=== PATIENT | female | born 1955 | race Caucasian/White ===

== ENCOUNTER 2020-11-03 06:30 | Outpatient (REF) | payer BC, SELFPAY ==
[2020-11-03 11:38] LABS: Alanine Aminotransferase 45 U/L (0-31); Albumin Level 4.4 g/dL (3.5-5.0); Alkaline Phosphatase 109 U/L (39-117); Anion Gap 20 (12-20); Aspartate Amino Transferase 33 U/L (5-31); Bilirubin Total 0.6 mg/dL (0.0-1.0); Blood Urea Nitrogen 13 mg/dL (9-16); Calcium 9.3 mg/dL (8.4-10.2); Carbon Dioxide 21 mmol/L (22-29); Chloride 108 mmol/L (96-108); Estimated Glomerular Filt Rate > 60; Glucose Fasting 100 mg/dL (60-99); Sodium 145 mmol/L (135-145); Total Protein 6.9 g/dL (6.5-8.0)
[2020-11-03 11:46] LABS: Vitamin D 25-OH Total 33.6 ng/mL (>30)
[2020-11-10 09:48] LABS: N-Telopeptide 46 (see note); NTXCreaRU 168 mg/dL (20-275)
== END 2020-11-03 06:31 | disposition home or self-care (01) ==
LOC: HO.HMGCLDS 06:30
PROVIDERS: PCP Internal Medicine; Visit Provider Internal Medicine Endocrinology, Diabetes & Metabolism
DX: M81.0 Age-related osteoporosis without current pathological fracture (principal)
CPT/HCPCS: 36415; 80053; 82306; 82523

== ENCOUNTER → 2020-11-14 07:40 | Outpatient (BNVA) | payer BC, SELFPAY | PROVIDERS: PCP Internal Medicine; Visit Provider Internal Medicine Endocrinology, Diabetes & Metabolism ==

== ENCOUNTER → 2020-12-02 08:10 | Outpatient (BNVA) | payer BC, SELFPAY | PROVIDERS: PCP Internal Medicine; Visit Provider Internal Medicine Endocrinology, Diabetes & Metabolism | DX: M81.0 Age-related osteoporosis without current pathological fracture (principal) | CPT/HCPCS: 96402; J0897 ==

== ENCOUNTER 2020-12-15 06:30 | Outpatient (REF) | payer BC, SELFPAY ==
[2020-12-15 11:35] LABS: Albumin Level 4.6 g/dL (3.5-5.0); Calcium 8.9 mg/dL (8.4-10.2)
[2020-12-15 11:40] LABS: Alanine Aminotransferase 33 U/L (0-31); Albumin Level 4.6 g/dL (3.5-5.0); Alkaline Phosphatase 115 U/L (39-117); Aspartate Amino Transferase 22 U/L (5-31); Bilirubin Direct 0.3 mg/dL (0.0-0.5); Bilirubin Total 0.7 mg/dL (0.0-1.0); Cholesterol 135 mg/dL; HDL Cholesterol 34 mg/dL; LDL Cholesterol Calculated 74 mg/dl; Triglycerides 137 mg/dL
[2020-12-15 13:35] LABS: Reflex LDLD? No
== END 2020-12-15 06:31 | disposition home or self-care (01) ==
LOC: HO.HMGCLDS 06:30
PROVIDERS: PCP Internal Medicine; Visit Provider Internal Medicine Endocrinology, Diabetes & Metabolism
DX: M81.0 Age-related osteoporosis without current pathological fracture (principal); E78.6 Lipoprotein deficiency; E78.00 Pure hypercholesterolemia, unspecified
CPT/HCPCS: 36415; 80061; 80076; 82040; 82310

== ENCOUNTER 2021-01-16 07:56 | Outpatient (REF) | payer BC, SELFPAY ==
--- NOTE | ~2021-01-16 | MM_ITS ---
EXA EXAMINATION: BONE DENSITOMETRY CLINICAL INDICATION: Age-related osteoporosis without current pathological fracture. COMPARISON: Previous BD dated 01/30/2019, left hip, 01/28/2017, spine, and baseline BD dated 11/15/2013. TECHNIQUE: Using a [employer] DXA System (software version: 13.1) manufactured by [employer], dual-energy x-ray absorptiometry was performed of the lumbar spine and left hip. The images are of good technical quality. Summary results are attached. FINDINGS: AP SPINE L1-L4: Current: BMD 0.888 g/cm2, Z-score -0.9, T-score -2.4, osteopenia, 10.2% increase from previous, 0.7% increase from baseline (<5% change is not significant). Prior: BMD 0.806 g/cm2. Baseline: BMD 0.882 g/cm2. LEFT FEMUR, NECK: Current: BMD 0.688 g/cm2, Z-score -1.1, T-score -2.5, osteoporosis. Prior: BMD 0.707 g/cm2. Baseline: BMD 0.688 g/cm2. LEFT FEMUR, TOTAL: Current: BMD 0.751 g/cm2, Z-score -0.9, T-score -2.0, osteopenia, 4.7% decrease from previous, 1.3% increase from baseline (<5% change is not significant). Prior: BMD 0.788 g/cm2. Baseline: BMD 0.741 g/cm2. IDENTIFIED RISK FACTORS: Early menopause, secondary osteoporosis, tobacco use (current smoker), osteoporosis. HISTORY OF FRACTURE: None listed. MEDICATIONS: Calcium supplements or multivitamin, vitamin D, Prolia. MM/XR DEXA axial skeleton IMPRESSION: 1. DIAGNOSIS: Osteoporosis based on the lowest T-score value of -2.5 in the femoral neck applying World Health Organization criteria. 2. 10-YEAR FRACTURE RISK PREDICTION, FRAX: Major osteoporotic fracture (clinical spine, forearm, hip or shoulder) 14.1%. Hip fracture 4.6%. 3. Treatment Recommendations: NOF guidelines recommend consideration for treatment in postmenopausal women and men age 50 and older presenting with the following: -A hip or vertebral (clinical or morphometric) fracture. -T-score less than or equal to -2.5 at the femoral neck or spine after appropriate evaluation to exclude secondary causes. -Low bone mass at the hip or spine and a 10-year fracture probability by FRAX of greater than or equal to 3% for hip fracture or greater than or equal to 20% for major osteoporotic fracture based on the [place] adapted WHO algorithm. 4. Other Recommendations: All treatment decisions require clinical judgment and consideration of individual patient factors, including patient preferences, comorbidities, previous drug use, risk factors not captured in the FRAX model (e.g. frailty, falls, vitamin D deficiency, increased bone turnover, interval significant decline in bone density) and possible under or overestimation of fracture risk by FRAX. Additional medical evaluation for secondary cause of low bone mineral density may be appropriate. FUTURE SCAN RECOMMENDATION: People with diagnosed cases of osteoporosis or at high risk for fracture should have regular bone mineral density tests. For patients eligible for Medicare, routine testing is allowed once every 2 years. The testing frequency can be increased to one year for patients who have rapidly progressing disease, those who are receiving or discontinuing medical therapy to restore bone mass, or have additional risk factors. MINATION:
== END 2021-01-16 07:57 | disposition home or self-care (01) ==
LOC: HO.MAMMO 07:56
PROVIDERS: Visit Provider Internal Medicine Endocrinology, Diabetes & Metabolism
DX: Z13.820 Encounter for screening for osteoporosis (principal); M81.0 Age-related osteoporosis without current pathological fracture; F17.200 Nicotine dependence, unspecified, uncomplicated; Z79.899 Other long term (current) drug therapy
CPT/HCPCS: 77080

== ENCOUNTER 2021-04-17 08:52 | Outpatient (REF) | payer BC, SELFPAY ==
--- NOTE | ~2021-04-17 | US_ITS ---
EXAMINATION: US EXTRACRANIAL CAROTID DUPLEX, BILATERAL CLINICAL INFORMATION: Coronary artery disease. Risk factors include tobacco use and hyperlipidemia. COMPARISON: Previous carotid ultrasound February 2018 and February 2019 TECHNIQUE: Real-time ultrasound and Doppler techniques (integrating B-mode 2-D vascular images, Doppler spectral analysis and color-flow Doppler imaging) were utilized to interrogate the extracranial carotid arteries, the vertebral arteries and proximal subclavian arteries bilaterally. The degree of stenosis is determined by criteria similar to NASCET. FINDINGS: Right Side: 1. There is mild atherosclerotic plaque seen in the bifurcation/proximal ICA region. 2. The common carotid artery PSV proximally is 119 cm/s and distally 114 cm/s. 3. The proximal internal carotid artery velocities are 83 cm/s systolic and 21 cm/s diastolic. 4. The proximal external carotid artery PSV is 126 cm/s. 5. The vertebral artery shows antegrade flow. 6. The subclavian artery waveforms are normal. Left Side: 1. There is mild atherosclerotic plaque seen in the bifurcation/proximal ICA region. 2. The common carotid artery PSV proximally is 106 cm/s and distally 99 cm/s. 3. The proximal internal carotid artery velocities are 70 cm/s systolic and 25 cm/s diastolic. 4. The proximal external carotid artery PSV is 114 cm/s. 5. The vertebral artery shows antegrade flow. 6. The subclavian artery waveforms are normal. US/US carotid duplex BI IMPRESSION: 1. RIGHT: Mild atherosclerotic plaque. 0-49% right ICA stenosis. 2. LEFT: Mild atherosclerotic plaque. 0-49% left ICA stenosis. 3. There is no change in the category severity of disease when compared to the previous study dated February 2019.
== END 2021-04-17 08:53 | disposition home or self-care (01) ==
LOC: HO.HMGCX 08:52
PROVIDERS: PCP Internal Medicine; Visit Provider Internal Medicine
DX: D72.820 Lymphocytosis (symptomatic) (principal); I77.9 Disorder of arteries and arterioles, unspecified
CPT/HCPCS: 93880

== ENCOUNTER 2021-04-27 06:16 | Outpatient (REF) | payer BC, SELFPAY ==
[2021-04-27 11:27] LABS: MANUAL DIFF FLAG NO
[2021-04-27 11:32] LABS: Glucose Urine UA NEG (NEG); Leukocyte Esterase Urine NEG (NEG); Nitrite Urine NEG (NEG); Specific Gravity - Urine <= 1.005 (1.005-1.025); Urine Blood 2+ (NEG); Urine Ketones NEG (NEG); Urine Protein NEG (NEG-TRACE)
[2021-04-27 11:36] LABS: Appearance Urine CLEAR; Color Urine STRAW
[2021-04-27 11:44] LABS: Basophils Percent Auto 0.4 % (0-2); Eosinophils Absolute Auto 0.1 X10*3/uL (0.0-0.4); Eosinophils Percent Auto 1.4 % (0-4); Hematocrit 40.9 % (37-47); Hemoglobin 12.8 g/dl (12.0-16.0); Imm Gran Abs Auto 0.03 X10*3/uL (0.00-0.03); Imm Gran Pct Auto 0.3 % (0.0-0.4); Lymphocytes Absolute Auto 4.5 X10*3/uL (1.2-4.9); Lymphocytes Percent Auto 47.3 % (20-40); Mean Corpuscular HGB Conc 31.3 g/dl (31.0-35.0); Mean Corpuscular Hemoglobin 31.4 pg (27.0-33.0); Mean Corpuscular Volume 100.2 fL (80-98); Mean Platelet Volume 12.7 fL (9.4-12.3); Monocytes Absolute Auto 0.7 X10*3/uL (0.1-1.2); Monocytes Percent Auto 7.1 % (2-11); Neutrophils Absolute Auto 4.2 X10*3/uL (2.0-8.3); Neutrophils Percent Auto 43.5 % (45-73); Platelet Count 231 X10*3/uL (160-400); Red Blood Count 4.08 X10*6/uL (4.20-5.50); Red Cell Distribution Width 13.7 % (11.0-16.0); White Blood Count 9.6 X10*3/uL (4.8-10.8)
[2021-04-27 11:54] LABS: Alanine Aminotransferase 38 U/L (0-31); Albumin Level 4.4 g/dL (3.5-5.0); Alkaline Phosphatase 98 U/L (39-117); Anion Gap 14 (12-20); Aspartate Amino Transferase 28 U/L (5-31); Bilirubin Total 0.7 mg/dL (0.0-1.0); Blood Urea Nitrogen 14 mg/dL (9-16); Calcium 9.3 mg/dL (8.4-10.2); Carbon Dioxide 25 mmol/L (22-29); Chloride 107 mmol/L (96-108); Cholesterol 132 mg/dL; Estimated Glomerular Filt Rate > 60; Glucose Fasting 107 mg/dL (60-99); HDL Cholesterol 31 mg/dL; LDL Cholesterol Calculated 73 mg/dl; Potassium 4.7 mmol/L (3.3-5.1); Sodium 141 mmol/L (135-145); Total Protein 6.9 g/dL (6.5-8.0); Triglycerides 144 mg/dL
[2021-04-27 11:56] LABS: Bacteria Urine 2+ /LPF; Squamous Epithelial Cell Urine 2+ /LPF
[2021-04-27 12:15] LABS: Vitamin D 25-OH Total 33.2 ng/mL (>30)
[2021-04-27 12:22] LABS: Reflex LDLD? No
[2021-05-01 16:37] LABS: N-Telopeptide 15 (see note); NTXCreaRU 48 mg/dL (20-275)
== END 2021-04-27 06:17 | disposition home or self-care (01) ==
LOC: HO.HMGCLDS 06:16
PROVIDERS: Internal Medicine Endocrinology, Diabetes & Metabolism; PCP Internal Medicine; Visit Provider Internal Medicine
DX: E55.9 Vitamin D deficiency, unspecified (principal); M81.0 Age-related osteoporosis without current pathological fracture; E78.00 Pure hypercholesterolemia, unspecified; D72.820 Lymphocytosis (symptomatic)
CPT/HCPCS: 36415; 80053; 80061; 81001; 82306; 82523; 85025

== ENCOUNTER 2021-06-04 07:43 | Outpatient (REF) | payer BC, SELFPAY ==
--- NOTE | ~2021-06-04 | MM_ITS ---
EXAMINATION: MM SCREENING DIGITAL BREAST TOMOSYNTHESIS, BILATERAL CLINICAL INFORMATION: Screening. Asymptomatic. The lifetime risk of breast cancer based on the Tyrer-Cuzick Model is 4%. COMPARISON: Mammography: May 29, 2020 and studies dating back to October 17, 2012 TECHNIQUE: Digital breast tomosynthesis is performed in both the craniocaudal and mediolateral oblique views along with computer-aided detection (CAD). Synthesized 2D images are generated from the tomosynthesis. FINDINGS: The breasts are heterogeneously dense, which may obscure small masses (ACR BI-RADS breast composition Category c). There are no significant masses, abnormal calcifications, or other abnormalities. MM/MM tomosynthesis screening BI IMPRESSION: There are no significant changes from prior study. ASSESSMENT: BI-RADS 1: Negative RECOMMENDATION: Routine annual mammography screening. This patient's information was entered into a reminder system with a target due date for their next mammogram.
== END 2021-06-04 07:44 | disposition home or self-care (01) ==
LOC: HO.MAMMO 07:43
PROVIDERS: Visit Provider Internal Medicine
DX: Z12.31 Encounter for screening mammogram for malignant neoplasm of breast (principal); M81.0 Age-related osteoporosis without current pathological fracture
CPT/HCPCS: 77063; 77067; 96372; J0897

== ENCOUNTER 2021-06-05 14:43 | Outpatient (REF) | payer BC, SELFPAY ==
--- NOTE | ~2021-06-05 | CT_ITS ---
EXAMINATION: CT CHEST SCREENING CLINICAL INFORMATION: Former smoker. 30 pack-year history. COMPARISON: Quit smoking less than 1 year ago. TECHNIQUE: Multidetector volumetric CT imaging of the chest is performed without contrast using low dose technique. Additional 2D coronal and sagittal reformatted images and axial 3D maximum intensity projection (MIP) images are generated on the CT workstation. This CT examination was performed using dose optimization techniques as appropriate, variously including the following: *Automated exposure control *Adjustment of mA and/or kV according to patient size (this includes techniques or standardized protocols for targeted exams where dose is matched to indication/reason for exam; i.e. extremities or head) *Use of iterative reconstruction technique DLP: 42 mGy-cm FINDINGS: LUNGS: There is evidence of mild emphysema. There is a 2 mm peripheral or subpleural right lower lobe nodule adjacent to the mediastinum, axial image 334 series 5. The lungs are otherwise clear. No endobronchial or endotracheal lesion is seen. MEDIASTINUM: The mediastinum is normal. PLEURA: There is no pleural effusion. No pleural mass or thickening. AXILLA: There are small bilateral axillary lymph nodes. No enlarged axillary lymph nodes or chest wall mass. UPPER ABDOMEN: There is diverticulosis of the colon. OSSEOUS STRUCTURES: There are degenerative changes of the spine. CT/CT lung screening IMPRESSION: Mild emphysema. Small right lower lobe pulmonary nodule. ASSESSMENT: Lung-RADS category 2: Benign. RECOMMENDATION: Annual low-dose chest CT follow-up recommended.
== END 2021-06-05 14:44 | disposition home or self-care (01) ==
LOC: HO.CT 14:43
PROVIDERS: PCP Internal Medicine; Visit Provider Physician Assistant Medical
DX: Z12.2 Encounter for screening for malignant neoplasm of respiratory organs (principal); F17.210 Nicotine dependence, cigarettes, uncomplicated
CPT/HCPCS: 71271

== ENCOUNTER 2021-06-18 06:41 | Outpatient (REF) | payer BC, SELFPAY ==
[2021-06-18 11:48] LABS: Albumin Level 4.5 g/dL (3.5-5.0); Calcium 9.1 mg/dL (8.4-10.2)
[2021-06-21 06:46] LABS: PTHI 69 pg/mL (14-64)
== END 2021-06-18 06:42 | disposition home or self-care (01) ==
LOC: HO.HMGCLDS 06:41
PROVIDERS: PCP Internal Medicine; Visit Provider Internal Medicine
DX: M81.0 Age-related osteoporosis without current pathological fracture (principal)
CPT/HCPCS: 36415; 82040; 82310; 83970

== ENCOUNTER 2021-10-29 06:18 | Outpatient (REF) | payer BC, SELFPAY ==
[2021-10-29 11:49] LABS: Alanine Aminotransferase 30 U/L (0-31); Albumin Level 4.3 g/dL (3.5-5.0); Alkaline Phosphatase 79 U/L (39-117); Aspartate Amino Transferase 21 U/L (5-31); Bilirubin Direct 0.4 mg/dL (0.0-0.5); Bilirubin Total 1.1 mg/dL (0.0-1.0); Cholesterol 139 mg/dL; HDL Cholesterol 32 mg/dL; LDL Cholesterol Calculated 75 mg/dl; Total Protein 6.9 g/dL (6.5-8.0); Triglycerides 161 mg/dL
== END 2021-10-29 06:19 | disposition home or self-care (01) ==
LOC: HO.HMGCLDS 06:18
PROVIDERS: Visit Provider Internal Medicine
DX: E78.00 Pure hypercholesterolemia, unspecified (principal)
CPT/HCPCS: 36415; 80061; 80076

== ENCOUNTER 2021-11-27 06:00 | Outpatient (REF) | payer BC, SELFPAY ==
[2021-11-27 12:14] LABS: Alanine Aminotransferase 20 U/L (0-31); Albumin Level 4.5 g/dL (3.5-5.0); Alkaline Phosphatase 80 U/L (39-117); Anion Gap 14 (12-20); Aspartate Amino Transferase 17 U/L (5-31); Bilirubin Total 0.8 mg/dL (0.0-1.0); Blood Urea Nitrogen 19 mg/dL (9-16); Carbon Dioxide 26 mmol/L (22-29); Chloride 106 mmol/L (96-108); Estimated Glomerular Filt Rate 56; Glucose Fasting 100 mg/dL (60-99); Potassium 4.7 mmol/L (3.3-5.1); Sodium 141 mmol/L (135-145)
[2021-11-27 12:18] LABS: Vitamin D 25-OH Total 41.5 ng/mL (>30)
== END 2021-11-27 06:01 | disposition home or self-care (01) ==
LOC: HO.HMGCLDS 06:00
PROVIDERS: PCP Internal Medicine; Visit Provider Internal Medicine Endocrinology, Diabetes & Metabolism
DX: M81.0 Age-related osteoporosis without current pathological fracture (principal)
CPT/HCPCS: 36415; 80053; 82306

== ENCOUNTER 2021-12-14 06:15 | Day surgery (SDC) | payer BC, SELFPAY ==
[2021-12-14 06:38] VITALS: BMI 30.8
[2021-12-14 07:01] VITALS: BP 157/71; PULSE 76; RESP 16; TEMP 36.7; O2SAT 96
--- NOTE | 2021-12-14 07:17 | P.CONAN_ITS ---
HPI - Anesthesia Eval Consult details Narrative: Colonoscopy [facility] Active Problems Active Problems: All Active Problems (Updated 12/08/21 @ 13:42 by Stephani Chauhan RN) Hypertension (Acute) Hyperlipidemia (Acute) Personal history of nicotine dependence (Acute) Impaired fasting glucose (Acute) Obesity (BMI 30-39.9) (Acute) Osteoporosis (Acute ~2013) Past Medical History Medical History (Updated 12/08/21 @ 13:42 by Stephani Chauhan RN) COVID-19 vaccine series completed Hyperlipidemia Hypertension Impaired fasting glucose Obesity (BMI 30-39.9) Osteoporosis (~2013) Personal history of nicotine dependence Tubular adenoma of colon (~2007) Vitamin D deficiency Family History Family History (Updated 11/14/20 @ 07:56 by Isabella Hammer LPN) Father No problems noted. Mother CVD (cardiovascular disease) Family history of problems with anesthesia: No Surgical History Surgical History (Updated 12/08/21 @ 13:27 by Stephani Chauhan RN) History of breast biopsy History of colonoscopy History of laryngoscopy Hx of wisdom tooth extraction History of Problems with Anesthesia: No Social History Social History (Updated 11/14/20 @ 07:56 by Isabella Hammer LPN) Are you a primary career guidance technician to a significant other at home: No Do you presently have visiting nurse or other home services: No Patient Tobacco Use Status: Current everyday Tobacco user Tobacco use type: Cigarette Cigarettes Per Day: 10 Years Smoked: 25+ Use of substances other than those prescribed or required for medical reasons: No Have you been hit, kicked, punched, or otherwise hurt by someone within the past year? If so, by whom?: No Are you DNR?: No Advance Directives: No Advance Directives Information Provided: Yes Advance Directives on File: No Recently lost weight without trying: No Eating poorly because of decreased appetite: No Nutrition Risks: No Nutritional Risk Poor oral hygiene: No Meds Allergies Allergy/AdvReac Type Severity Reaction Status Date / Time Sulfa (Sulfonamide Allergy Intermediate RASH Verified 12/14/21 06:38 Antibiotics) [SULFA (SULFONAMIDE ANTIBIOTICS)] Active Medications: Current Medications Sodium Biphosphate/Sodium Phosphate (Sodium Phosphate,[place]-Dibasic 133 Ml Enema) 133 ml MT ONCE PRN PRN Reason: Poor Colonoscopy Prep Results Home Medications Medication Instructions Recorded Confirmed Last Taken Type albuterol sulfate 90 mcg/actuation 2 puff INHALATION Q4H PRN 11/14/20 11/14/20 Unknown History aerosol inhaler atorvastatin 80 mg tablet 80 mg PO DAILY 11/14/20 12/08/21 Unknown History calcium carbonate 600 mg-vitamin 1 tab PO DAILY 11/14/20 12/08/21 Unknown History D3 20 mcg (800 unit) chewable tablet (Caltrate 600 plus D) denosumab 60 mg/mL subcutaneous 60 mg SUBCUT [id number] 11/14/20 12/08/21 Unknown History syringe (Prolia) ropinirole 1 mg tablet 1 mg PO BEDTIME 11/14/20 12/08/21 Unknown History Exam Exam Date and Time: December 14, [id number] Height,Weight and Vital Signs: Height 4 ft 10.5 in Weight 68.039 kg Last Vital Signs Temp 98.1 F 12/14/21 07:01 Pulse 76 12/14/21 07:01 Resp 16 12/14/21 07:01 BP 157/71 H 12/14/21 07:01 Pulse Ox 96 12/14/21 07:01 Airway Mallampati Class: II TM Dist: >3cm Neck ROM: Full Loose/Missing/Broken Teeth: Yes (poor dentition diffusely) Heart: [id number] Lungs: cta b/l Assessment and Plan Assessment Anesthesia Assessment: Anesthesia Plan Discussed and Chart Reviewed Final Anesthetic Review Family History of Problems with Anesthesia: No History of Problems with Anesthesia: No NPO: Yes ASA Class: III Final Preanesthetic Review: No Changes in Pt Med Stat, Meds/Allgs Chart Rev iewed, Consent Obtained/Reviewed and Anes Risks/Benef Reviewed Patient Risk: Intermediate Procedure Risk: Low Assessment/Block/Sedation in SS: Assess/Block/Sedation-SS Anesthetic Plan Anesthetic Plan: MAC: and Agree w/ Assess. and Plan Disposition: Standard PACU
[2021-12-14] MEDS: Lactated Ringers 1,000 ML 50 ML IVCONT (07:27)
[2021-12-14 08:25] VITALS: BP 98/50; PULSE 85; RESP 16; TEMP 37; O2SAT 98
--- NOTE | 2021-12-14 08:28 | P.BOP_ITS ---
Brief Operative Note Date of Service: 12/14/21 Pre-op diagnosis: Screening Post-op diagnosis: other (Polyps) Procedure: Colonosocpy to the cecum with cold snare polypectomy in rectum x 2, and bx/removal of polyp Surgeon: Calderon Pacheco Anesthesia: MAC Was an Incendiary Powder Mixer used for this Procedure?: No Estimated blood loss (mL): 2.0 Pathology: other (A. Polyp at 50cm B. Rectal polyps) Condition: stable Disposition: PACU
[2021-12-14 08:40] VITALS: BP 112/52; PULSE 72; RESP 18; TEMP 37; O2SAT 98
--- NOTE | 2021-12-14 09:31 | OP_ITS ---
SURGEON: Calderon Pacheco MD INDICATIONS: The patient presents for evaluation, personal history of tubular adenoma of the colon and colorectal cancer screening. Full consent was obtained from her for this, including risks of bleeding and perforation. PREOPERATIVE DIAGNOSIS: POSTOPERATIVE DIAGNOSIS: Colorectal cancer screening and personal history of tubular adenomas of the colon, colon polyps, diverticulosis, and internal hemorrhoids. PROCEDURE PERFORMED: Colonoscopy to the cecum with biopsy and removal of polyp, and cold snare polypectomy. ESTIMATED BLOOD LOSS: COMPLICATIONS: ANESTHESIA: Monitored anesthesia care. ASSISTANTS: SPECIMENS: PREOPERATIVE DIAGNOSES: Colorectal cancer screening and personal history of tubular adenomas of the colon. DESCRIPTION OF PROCEDURE: The patient was placed in the left lateral decubitus position. The digital rectal exam revealed some small external hemorrhoids. The Olympus video pediatric colonoscope was entered into the rectum advanced to the cecum with the assistance of abdominal wall pressure. Once in the cecum, I did identify normal-appearing cecal pouch with appendiceal orifice and a normal-appearing ileocecal valve. The entire cecum was well visualized and appeared normal. The scope was slowly withdrawn assessing all mucosal surfaces carefully. Preparation was excellent. At 50 cm was a flat approximately 3 or 4 mm polyp, which was biopsied and completely removed with cold biopsy forceps. In the rectum were 2 approximately 5 or 6 mm polyps, which were each removed with cold snare polypectomy and recovered by suction. The polypectomy site appeared clean, without any sign of residual polyp nor any bleeding. I did not visualize any other polyps, colitis, or angiodysplasia. There was a mild amount of sigmoid diverticulosis. In the rectum, scope was retroflexed visualizing minimal internal hemorrhoids, but no other pathology. The rectal mucosa appeared normal. The scope was straightened and withdrawn from the patient. She tolerated the procedure well and was returned to the recovery area in stable condition. IMPRESSION: 1. Colon polyps. 2. Diverticulosis. 3. Internal and external hemorrhoids. PLAN: The results of the pathology will be checked. I would recommend a repeat colonoscopy in 5 years for further surveillance. She was advised not to use any aspirin and NSAIDs for 1 week. She will see me otherwise on a p.r.n. basis. MD AYESHA Brooks/ROSAURA / [id number]
== END 2021-12-14 09:21 | disposition home or self-care (01) ==
PROVIDERS: PCP Internal Medicine; Visit Provider Internal Medicine
PROC: 0DJD8ZZ Inspection of Lower Intestinal Tract, Via Natural or Artificial Opening Endoscopic (ICD-10-PCS; CPT 45378; principal; 2021-12-14 07:30)
DX: Z12.11 Encounter for screening for malignant neoplasm of colon (principal); Z86.010 Personal history of colon polyps; K63.5 Polyp of colon; K62.1 Rectal polyp; K57.30 Diverticulosis of large intestine without perforation or abscess without bleeding; K64.8 Other hemorrhoids; E78.5 Hyperlipidemia, unspecified; I10 Essential (primary) hypertension; M81.0 Age-related osteoporosis without current pathological fracture; E55.9 Vitamin D deficiency, unspecified; Z79.899 Other long term (current) drug therapy; Z88.2 Allergy status to sulfonamides; F17.210 Nicotine dependence, cigarettes, uncomplicated
CPT/HCPCS: 45385; 45380; 88305

== ENCOUNTER → 2022-01-29 07:36 | Outpatient (BNVA) | payer BC, SELFPAY | PROVIDERS: PCP Internal Medicine; Visit Provider Internal Medicine Endocrinology, Diabetes & Metabolism | DX: M81.0 Age-related osteoporosis without current pathological fracture (principal) | CPT/HCPCS: 96372; J0897 ==

== ENCOUNTER 2022-02-11 08:42 | Outpatient (REF) | payer BC, SELFPAY ==
[2022-02-11 11:27] LABS: Estimated Glomerular Filt Rate 57
[2022-02-12 12:46] LABS: Calcium (PTHI) 9.2 mg/dL (8.6-10.4); PTHI 86 pg/mL (16-77)
== END 2022-02-11 08:43 | disposition home or self-care (01) ==
LOC: HO.HMGCLDS 08:42
PROVIDERS: Visit Provider Internal Medicine Endocrinology, Diabetes & Metabolism
DX: M81.0 Age-related osteoporosis without current pathological fracture (principal)
CPT/HCPCS: 36415; 82565; 83970

== ENCOUNTER → 2022-03-12 07:53 | Outpatient (BNVA) | payer BC, SELFPAY | PROVIDERS: PCP Internal Medicine; Visit Provider Internal Medicine Endocrinology, Diabetes & Metabolism | DX: Z13.89 Encounter for screening for other disorder (principal) ==

== ENCOUNTER 2022-04-20 06:13 | Outpatient (REF) | payer BC, SELFPAY ==
[2022-04-20 11:25] LABS: MANUAL DIFF FLAG NO
[2022-04-20 11:33] LABS: Basophils Percent Auto 0.5 % (0-2); Eosinophils Absolute Auto 0.1 X10*3/uL (0.0-0.4); Eosinophils Percent Auto 1.3 % (0-4); Hematocrit 41.7 % (37.0-47.0); Hemoglobin 13.1 g/dl (12.0-16.0); Imm Gran Abs Auto 0.03 X10*3/uL (0.00-0.03); Imm Gran Pct Auto 0.4 % (0.0-0.4); Lymphocytes Absolute Auto 3.5 X10*3/uL (1.2-4.9); Lymphocytes Percent Auto 42.5 % (20-40); Mean Corpuscular HGB Conc 31.4 g/dl (31.0-35.0); Mean Corpuscular Hemoglobin 31.3 pg (27.0-33.0); Mean Corpuscular Volume 99.5 fL (80.0-98.0); Mean Platelet Volume 12.3 fL (9.4-12.3); Monocytes Absolute Auto 0.6 X10*3/uL (0.1-1.2); Neutrophils Percent Auto 48.3 % (45-73); Platelet Count 225 X10*3/uL (160-400); Red Blood Count 4.19 X10*6/uL (4.20-5.50); Red Cell Distribution Width 13.1 % (11.0-16.0); White Blood Count 8.3 X10*3/uL (4.8-10.8)
[2022-04-20 12:02] LABS: Vitamin D 25-OH Total 32.9 ng/mL (>30)
[2022-04-20 12:04] LABS: Alanine Aminotransferase 32 U/L (0-31); Albumin Level 4.4 g/dL (3.5-5.0); Alkaline Phosphatase 87 U/L (39-117); Anion Gap 14 (12-20); Aspartate Amino Transferase 23 U/L (5-31); Bilirubin Total 0.9 mg/dL (0.0-1.0); Blood Urea Nitrogen 14 mg/dL (9-16); Carbon Dioxide 23 mmol/L (22-29); Chloride 109 mmol/L (96-108); Cholesterol 148 mg/dL; Estimated Glomerular Filt Rate > 60; Glucose Fasting 105 mg/dL (60-99); HDL Cholesterol 35 mg/dL; LDL Cholesterol Calculated 84 mg/dl; Potassium 4.7 mmol/L (3.3-5.1); Sodium 141 mmol/L (135-145); Triglycerides 148 mg/dL
[2022-04-20 12:22] LABS: Appearance Urine CLEAR; Color Urine YELLOW; Glucose Urine UA NEG (NEG); Leukocyte Esterase Urine NEG (NEG); Nitrite Urine NEG (NEG); Urine Blood 2+ (NEG); Urine Ketones NEG (NEG); Urine Protein NEG (NEG-TRACE)
[2022-04-20 13:10] LABS: Squamous Epithelial Cell Urine 2+ /LPF
[2022-04-20 13:11] LABS: Bacteria Urine 1+ /LPF
[2022-04-20 13:12] LABS: RBC Urine 0-2 /HPF (0); WBC Urine 0-2 /HPF (0-4)
== END 2022-04-20 06:14 | disposition home or self-care (01) ==
LOC: HO.HMGCLDS 06:13
PROVIDERS: Visit Provider Internal Medicine
DX: Z00.00 Encounter for general adult medical examination without abnormal findings (principal); I10 Essential (primary) hypertension; D72.820 Lymphocytosis (symptomatic); E78.00 Pure hypercholesterolemia, unspecified; E55.9 Vitamin D deficiency, unspecified
CPT/HCPCS: 36415; 80053; 80061; 81001; 82306; 85025

== ENCOUNTER 2022-06-15 07:20 | Outpatient (REF) | payer BC, SELFPAY ==
--- NOTE | ~2022-06-15 | MM_ITS ---
EXAMINATION: MM SCREENING DIGITAL BREAST TOMOSYNTHESIS, BILATERAL CLINICAL INFORMATION: Screening. Asymptomatic. The lifetime risk of breast cancer based on the Tyrer-Cuzick Model is 4%. COMPARISON: Mammography: 06/04/2021, 05/29/2020, 02/21/2019 TECHNIQUE: Digital breast tomosynthesis is performed in both the craniocaudal and mediolateral oblique views along with computer-aided detection (CAD). Synthesized 2D images are generated from the tomosynthesis. FINDINGS: The breasts are heterogeneously dense, which may obscure small masses (ACR BI-RADS breast composition Category c). Breast tissue composition borders on average fibroglandular. There is no developing density or architectural abnormality. There are no significant masses, abnormal calcifications, or other abnormalities. Skin contours are smooth. Axilla are unremarkable. No significant changes. MM/MM tomosynthesis screening BI IMPRESSION: No mammographic evidence of malignancy. ASSESSMENT: BI-RADS 1: Negative RECOMMENDATION: Routine annual mammography screening. This patient's information was entered into a reminder system with a target due date for their next mammogram.
== END 2022-06-15 07:21 | disposition home or self-care (01) ==
LOC: HO.MAMMO 07:20
PROVIDERS: PCP Internal Medicine; Visit Provider Internal Medicine
DX: Z12.31 Encounter for screening mammogram for malignant neoplasm of breast (principal)
CPT/HCPCS: 77063; 77067

== ENCOUNTER 2022-06-18 07:25 | Outpatient (REF) | payer BC, SELFPAY ==
--- NOTE | ~2022-06-18 | CT_ITS ---
EXAMINATION: CT CHEST SCREENING CLINICAL INFORMATION: Current smoker. COMPARISON: CT lungs 06/05/2021 TECHNIQUE: Multidetector volumetric CT imaging of the chest is performed without contrast using low dose technique. Additional 2D coronal and sagittal reformatted images and axial 3D maximum intensity projection (MIP) images are generated on the CT workstation. This CT examination was performed using dose optimization techniques as appropriate, variously including the following: *Automated exposure control *Adjustment of mA and/or kV according to patient size (this includes techniques or standardized protocols for targeted exams where dose is matched to indication/reason for exam; i.e. extremities or head) *Use of iterative reconstruction technique DLP: 38 mGy-cm FINDINGS: LUNGS: There is a 2 mm nodule right lower lobe adjacent to the posterior mediastinum, barely visible on axial image 95/9, 3 mm nodule right lower lobe posterior basal segment axial image 6, unchanged to previous exam. No additional nodules seen. No acute consolidation, mass or ground-glass density seen. MEDIASTINUM: The mediastinum is normal. PLEURA: There are small shotty lymph nodes in the axilla. The largest lymph node measures 8 mm on axial image 13/3. AXILLA: No lymphadenopathy. UPPER ABDOMEN: The visualized liver, spleen, pancreas, and bilateral adrenal glands are unremarkable. OSSEOUS STRUCTURES: No aggressive lytic or sclerotic process seen. There is mild ventral spondylosis. CT/CT lung screening IMPRESSION: Stable pulmonary nodules. No new nodules seen. ASSESSMENT: Lung-RADS category 2: Benign RECOMMENDATION: Low-dose annual CT chest followup.
== END 2022-06-18 07:26 | disposition home or self-care (01) ==
LOC: HO.CT 07:25
PROVIDERS: PCP Internal Medicine; Visit Provider Physician Assistant Medical
DX: Z12.2 Encounter for screening for malignant neoplasm of respiratory organs (principal); F17.210 Nicotine dependence, cigarettes, uncomplicated
CPT/HCPCS: 71271

== ENCOUNTER 2022-07-20 06:08 | Outpatient (REF) | payer BC, SELFPAY ==
[2022-07-20 11:41] LABS: Albumin Level 4.4 g/dL (3.5-5.0); Calcium 9.1 mg/dL (8.4-10.2)
[2022-07-20 13:11] LABS: Vitamin D 25-OH Total 32.9 ng/mL (>30)
[2022-07-21 11:32] LABS: Calcium (PTHI) 9.2 mg/dL (8.6-10.4); PTHI 68 pg/mL (16-77)
== END 2022-07-20 06:09 | disposition home or self-care (01) ==
LOC: HO.HMGCLDS 06:08
PROVIDERS: PCP Internal Medicine; Visit Provider Internal Medicine Endocrinology, Diabetes & Metabolism
DX: M81.0 Age-related osteoporosis without current pathological fracture (principal)
CPT/HCPCS: 36415; 82040; 82306; 82310; 83970

== ENCOUNTER 2022-07-21 10:44 | Outpatient (REF) | payer BC, SELFPAY ==
[2022-07-21 15:09] LABS: Creatinine, mg/dL 105.43
[2022-07-21 15:32] LABS: Creatinine, 24Hr Urine 0.9 G/Day (1.0-2.0); Total Volume 24 Hour Urine 900 mL
[2022-07-24 18:02] LABS: Calcium, 24 Hr Urine 167 mg/24 h; Calcium/Creatinine Ratio 182 mg/g creat (30-275); Creatinine 24Hr Urine 0.92 g/24 h (0.50-2.15)
== END 2022-07-21 10:45 | disposition home or self-care (01) ==
LOC: HO.HMGCLDS 10:44
PROVIDERS: PCP Internal Medicine; Visit Provider Internal Medicine Endocrinology, Diabetes & Metabolism
DX: M81.0 Age-related osteoporosis without current pathological fracture (principal)
CPT/HCPCS: 82340; 82570

== ENCOUNTER 2022-10-18 10:41 | Outpatient (REF) | payer BC, SELFPAY ==
[2022-10-18 12:12] LABS: Alanine Aminotransferase 31 U/L (0-31); Albumin Level 4.7 g/dL (3.5-5.0); Alkaline Phosphatase 105 U/L (39-117); Aspartate Amino Transferase 27 U/L (5-31); Bilirubin Direct 0.3 mg/dL (0.0-0.5); Bilirubin Total 0.8 mg/dL (0.0-1.0); Cholesterol 157 mg/dL; HDL Cholesterol 39 mg/dL; LDL Cholesterol Calculated 91 mg/dl; Total Protein 7.4 g/dL (6.5-8.0); Triglycerides 136 mg/dL
[2022-10-18 12:52] LABS: Reflex LDLD? No
== END 2022-10-18 10:42 | disposition home or self-care (01) ==
LOC: HO.LNP 10:41
PROVIDERS: Visit Provider Internal Medicine
DX: E78.00 Pure hypercholesterolemia, unspecified (principal)
CPT/HCPCS: 80061; 80076

== ENCOUNTER 2022-10-21 06:02 | Outpatient (REF) | payer BC, SELFPAY ==
[2022-10-27 18:43] LABS: N-Telopeptide 40 (see note); NTXCreaRU 38 mg/dL (20-275)
== END 2022-10-21 06:03 | disposition home or self-care (01) ==
LOC: HO.HMGCLDS 06:02
PROVIDERS: PCP Internal Medicine; Visit Provider Internal Medicine Endocrinology, Diabetes & Metabolism
DX: M81.0 Age-related osteoporosis without current pathological fracture (principal)
CPT/HCPCS: 82523

== ENCOUNTER → 2022-11-25 09:29 | Outpatient (BNVA) | payer BC, SELFPAY | PROVIDERS: PCP Internal Medicine; Visit Provider Internal Medicine Endocrinology, Diabetes & Metabolism | DX: Z13.89 Encounter for screening for other disorder (principal) ==

== ENCOUNTER 2023-01-18 08:07 | Outpatient (REF) | payer BC, SELFPAY ==
--- NOTE | ~2023-01-18 | MM_ITS ---
EXAMINATION: BONE DENSITOMETRY CLINICAL INDICATION: Osteoporosis. COMPARISON: Previous BD dated 01/16/2021 and baseline BD dated 11/15/2013. TECHNIQUE: Using a [employer] DXA System (software version: 13.1) manufactured by [employer], dual-energy x-ray absorptiometry was performed of the lumbar spine and left hip. The images are of good technical quality. Summary results are attached. FINDINGS: AP SPINE L1-L3 (excluding L4): The data of L1-L4 has been changed to exclude the L4 vertebral body, because degenerative changes at this level may cause overestimation of lumbar spine density. Current: BMD 0.844 g/cm2, Z-score -1.2, T-score -2.7, osteoporosis, 2.1% decrease from previous, 1.3% decrease from baseline (<5% change is not significant). Prior: BMD 0.862 g/cm2. Baseline: BMD 0.855 g/cm2. LEFT FEMUR, NECK: Current: BMD 0.586 g/cm2, Z-score -1.8, T-score -3.2, osteoporosis. Prior: BMD 0.674 g/cm2. Baseline: BMD 0.688 g/cm2. LEFT FEMUR, TOTAL: Current: BMD 0.650 g/cm2, Z-score -1.6, T-score -2.8, osteoporosis, 12.8% decrease from previous, 12.3% decrease from baseline (<5% change is not significant). Prior: BMD 0.745 g/cm2. Baseline: BMD 0.741 g/cm2. IDENTIFIED RISK FACTORS: Early menopause, secondary osteoporosis, osteoporosis, tobacco use (current smoker). HISTORY OF FRACTURE: None listed. MEDICATIONS: Calcium, vitamin D. MM/XR DEXA axial skeleton IMPRESSION: 1. DIAGNOSIS: Osteoporosis based on the lowest T-score value of -3.2 in the femoral neck applying World Health Organization criteria. 2. 10-YEAR FRACTURE RISK PREDICTION, FRAX: According to the guidelines, FRAX calculation should only be performed on patients in the osteopenia bone density category. Therefore, FRAX was not performed on this patient. 3. Treatment Recommendations: NOF guidelines recommend consideration for treatment in postmenopausal women and men age 50 and older presenting with the following: -A hip or vertebral (clinical or morphometric) fracture. -T-score less than or equal to -2.5 at the femoral neck or spine after appropriate evaluation to exclude secondary causes. -Low bone mass at the hip or spine and a 10-year fracture probability by FRAX of greater than or equal to 3% for hip fracture or greater than or equal to 20% for major osteoporotic fracture based on the [place] adapted WHO algorithm. 4. Other Recommendations: All treatment decisions require clinical judgment and consideration of individual patient factors, including patient preferences, comorbidities, previous drug use, risk factors not captured in the FRAX model (e.g. frailty, falls, vitamin D deficiency, increased bone turnover, interval significant decline in bone density) and possible under or overestimation of fracture risk by FRAX. Additional medical evaluation for secondary cause of low bone mineral density may be appropriate. FUTURE SCAN RECOMMENDATION: People with diagnosed cases of osteoporosis or at high risk for fracture should have regular bone mineral density tests. For patients eligible for Medicare, routine testing is allowed once every 2 years. The testing frequency can be increased to one year for patients who have rapidly progressing disease, those who are receiving or discontinuing medical therapy to restore bone mass, or have additional risk factors.
== END 2023-01-18 08:08 | disposition home or self-care (01) ==
LOC: HO.MAMMO 08:07
PROVIDERS: PCP Internal Medicine; Visit Provider Internal Medicine
DX: Z13.820 Encounter for screening for osteoporosis (principal); M81.0 Age-related osteoporosis without current pathological fracture; Z78.0 Asymptomatic menopausal state
CPT/HCPCS: 77080

== ENCOUNTER 2023-03-16 06:17 | Outpatient (REF) | payer BC, SELFPAY ==
[2023-03-23 01:48] LABS: N-Telopeptide 55 (see note); NTXCreaRU 115 mg/dL (20-275)
== END 2023-03-16 06:18 | disposition home or self-care (01) ==
LOC: HO.HMGCLDS 06:17
PROVIDERS: PCP Internal Medicine; Visit Provider Internal Medicine Endocrinology, Diabetes & Metabolism
DX: M81.0 Age-related osteoporosis without current pathological fracture (principal)
CPT/HCPCS: 82523

== ENCOUNTER → 2023-03-31 07:59 | Outpatient (BNVA) | payer BC, SELFPAY | PROVIDERS: PCP Internal Medicine; Visit Provider Internal Medicine Endocrinology, Diabetes & Metabolism ==

== ENCOUNTER 2023-04-26 06:17 | Outpatient (REF) | payer BC, SELFPAY ==
[2023-04-26 11:25] LABS: MANUAL DIFF FLAG NO
[2023-04-26 11:33] LABS: Appearance Urine Clear; Color Urine Yellow; Glucose Urine UA Negative (Negative); Leukocyte Esterase Urine Negative (Negative); Nitrite Urine Negative (Negative); PH 5.5 (5.0-9.0); Specific Gravity - Urine 1.015 (1.005-1.025); UMIC TRIGGER UACC YES; Urine Blood Small (1+) (Negative); Urine Ketones Negative (Negative); Urine Protein Negative (Neg-Trace)
[2023-04-26 11:45] LABS: Bacteria Urine None Seen (None Seen); Hyaline Casts Urine 0-2 /LPF (0-2); RBC Urine 0-2 /HPF (0-2); Squamous Epithelial Cell Urine 0-2 /HPF (0-2); WBC Urine 0-5 /HPF (0-5)
[2023-04-26 11:56] LABS: Basophils Absolute Auto 0.1 X10*3/uL (0.0-0.2); Basophils Percent Auto 0.7 % (0-2); Eosinophils Absolute Auto 0.1 X10*3/uL (0.0-0.4); Eosinophils Percent Auto 1.3 % (0-4); Hematocrit 42.3 % (37.0-47.0); Hemoglobin 13.3 g/dl (12.0-16.0); Imm Gran Abs Auto 0.05 X10*3/uL (0.00-0.03); Imm Gran Pct Auto 0.5 % (0.0-0.4); Lymphocytes Absolute Auto 4.3 X10*3/uL (1.2-4.9); Lymphocytes Percent Auto 41.9 % (20-40); Mean Corpuscular HGB Conc 31.4 g/dl (31.0-35.0); Mean Corpuscular Hemoglobin 31.7 pg (27.0-33.0); Mean Corpuscular Volume 100.7 fL (80.0-98.0); Mean Platelet Volume 12.6 fL (9.4-12.3); Monocytes Absolute Auto 0.8 X10*3/uL (0.1-1.2); Monocytes Percent Auto 7.8 % (2-11); Neutrophils Absolute Auto 4.9 x10*3/uL (2.0-8.3); Neutrophils Percent Auto 47.8 % (45-73); Platelet Count 219 X10*3/uL (160-400); White Blood Count 10.2 X10*3/uL (4.8-10.8)
[2023-04-26 12:36] LABS: Alanine Aminotransferase 30 U/L (0-31); Albumin Level 4.2 g/dL (3.5-5.0); Alkaline Phosphatase 110 U/L (39-117); Anion Gap 12 (12-20); Aspartate Amino Transferase 26 U/L (5-31); Bilirubin Total 0.4 mg/dL (0.0-1.0); Blood Urea Nitrogen 14 mg/dL (9-16); Calcium 9.5 mg/dL (8.4-10.2); Carbon Dioxide 26 mmol/L (22-29); Chloride 108 mmol/L (96-108); Cholesterol 142 mg/dL; Estimated Glomerular Filt Rate > 60; Glucose Random 102 mg/dL (60-115); HDL Cholesterol 33 mg/dL; LDL Cholesterol Calculated 74 mg/dl; Potassium 4.6 mmol/L (3.3-5.1); Sodium 141 mmol/L (135-145); Triglycerides 175 mg/dL; Vitamin D 25-OH Total 51.1 ng/mL (>30)
== END 2023-04-26 06:18 | disposition home or self-care (01) ==
LOC: HO.HMGCLDS 06:17
PROVIDERS: PCP Internal Medicine; Visit Provider Internal Medicine
DX: Z00.00 Encounter for general adult medical examination without abnormal findings (principal); E78.00 Pure hypercholesterolemia, unspecified; E55.9 Vitamin D deficiency, unspecified; D72.820 Lymphocytosis (symptomatic); I10 Essential (primary) hypertension
CPT/HCPCS: 36415; 80053; 80061; 81001; 82306; 85025

== ENCOUNTER 2023-06-20 08:13 | Outpatient (REF) | payer BC, SELFPAY ==
--- NOTE | ~2023-06-20 | US_ITS ---
EXAMINATION: US EXTRACRANIAL CAROTID DUPLEX, BILATERAL CLINICAL INFORMATION: Smoking, hypertension, hyperlipidemia. Bilateral carotid artery disease COMPARISON: Carotid ultrasound 04/17/2021 TECHNIQUE: Real-time ultrasound and Doppler techniques (integrating B-mode 2-D vascular images, Doppler spectral analysis and color-flow Doppler imaging) were utilized to interrogate the extracranial carotid arteries, the vertebral arteries and proximal subclavian arteries bilaterally. The degree of stenosis is determined by criteria similar to NASCET. FINDINGS: Right Side: 1. There is mild atherosclerotic plaque seen in the bifurcation/proximal ICA region. 2. The common carotid artery PSV proximally is 121 cm/s and distally 88 cm/s. 3. The proximal internal carotid artery velocities are 85 cm/s systolic and 24 cm/s diastolic. 4. The proximal external carotid artery PSV is 116 cm/s. 5. The vertebral artery shows antegrade flow. 6. The subclavian artery velocity is mildly elevated 233 cm/s. Left Side: 1. There is mild atherosclerotic plaque seen in the bifurcation/proximal ICA region. 2. The common carotid artery PSV proximally is 117 cm/s and distally 92 cm/s. 3. The proximal internal carotid artery velocities are 65 cm/s systolic and 26 cm/s diastolic. 4. The proximal external carotid artery PSV is 147 cm/s. 5. The vertebral artery shows antegrade flow. 6. The subclavian artery waveforms are normal. US/US carotid duplex BI IMPRESSION: 1. RIGHT: Minimal, non-hemodynamically significant stenosis of the proximal right internal carotid artery corresponding to a 0-49% stenosis by velocity criteria. 2. LEFT: Minimal, non-hemodynamically significant stenosis of the proximal left internal carotid artery corresponding to a 0-49% stenosis by velocity criteria. 3. There is no change in the category severity of disease when compared to the previous study dated 04/17/2021.
--- NOTE | ~2023-06-20 | US_ITS ---
EXAMINATION: US ABDOMEN LIMITED CLINICAL INFORMATION: Ascites. COMPARISON: CT chest screening 06/18/2022 and 06/05/2021. TECHNIQUE: Real-time imaging of the right upper quadrant abdominal viscera. FINDINGS: PANCREAS: Normal. LIVER: Liver is mildly enlarged measuring 17 cm in span. The liver contour is normal. Increased hepatic echogenicity which can be seen in the setting of hepatic steatosis or underlying liver disease. No focal hepatic lesion. There is no intrahepatic biliary duct dilatation seen. GALLBLADDER: Negative sonographic Castillo sign. The gallbladder is physiologically distended. Multiple mobile gallstones are present. No evidence of gallbladder wall thickening or pericholecystic fluid. COMMON BILE DUCT: Normal in caliber measuring 0.4 cm in diameter. RIGHT KIDNEY: Normal. No hydronephrosis. No renal calculi or focal parenchymal lesions. The kidney measures 9.2 cm in maximum dimension. FREE FLUID: None. US/US abdomen limited IMPRESSION: 1. No ascites. 2. Hepatomegaly. Increased hepatic echogenicity which can be seen in the setting of hepatic steatosis or underlying liver disease. 3. Cholelithiasis without evidence of acute cholecystitis.
== END 2023-06-20 08:14 | disposition home or self-care (01) ==
LOC: HO.HMGCX 08:13
PROVIDERS: PCP Internal Medicine; Visit Provider Internal Medicine
DX: R18.8 Other ascites (principal); I77.9 Disorder of arteries and arterioles, unspecified; R16.0 Hepatomegaly, not elsewhere classified; K80.20 Calculus of gallbladder without cholecystitis without obstruction; R10.0 Acute abdomen; I10 Essential (primary) hypertension; E78.5 Hyperlipidemia, unspecified; F17.200 Nicotine dependence, unspecified, uncomplicated
CPT/HCPCS: 76705; 93880

== ENCOUNTER 2023-06-22 07:19 | Outpatient (REF) | payer BC, SELFPAY ==
--- NOTE | ~2023-06-22 | MM_ITS ---
EXAMINATION: MM SCREENING DIGITAL BREAST TOMOSYNTHESIS, BILATERAL CLINICAL INFORMATION: Screening. Asymptomatic. COMPARISON: Mammography: 05/15/2022, 06/04/2021, 05/29/2020, 02/21/2019 TECHNIQUE: Digital breast tomosynthesis is performed in both the craniocaudal and mediolateral oblique views along with computer-aided detection (CAD). Synthesized 2D images are generated from the tomosynthesis. FINDINGS: The breasts are heterogeneously dense, which may obscure small masses (ACR BI-RADS breast composition Category c). There are no suspicious masses, suspicious grouped calcifications, or areas of architectural distortion. The parenchymal pattern is stable from prior exams. Stable lymph node in the outer right breast. There are no skin changes. MM/MM tomosynthesis screening BI IMPRESSION: No mammographic evidence of malignancy. ASSESSMENT: BI-RADS BI-RADS 1 - Negative RECOMMENDATION: Routine annual mammography screening. 1 year F/U This examination should not preclude the clinical evaluation of a suspicious palpable abnormality. This patient's information was entered into a reminder system with a target due date for their next mammogram.
== END 2023-06-22 07:20 | disposition home or self-care (01) ==
LOC: HO.MAMMO 07:19
PROVIDERS: PCP Internal Medicine; Visit Provider Internal Medicine
DX: Z12.31 Encounter for screening mammogram for malignant neoplasm of breast (principal)
CPT/HCPCS: 77063; 77067

== ENCOUNTER → 2023-06-22 07:30 | Outpatient (BNV) | payer BC, SELFPAY | PROVIDERS: PCP Internal Medicine; Visit Provider Radiology Diagnostic Radiology | DX: Z12.31 Encounter for screening mammogram for malignant neoplasm of breast (principal) | CPT/HCPCS: 77063; 77067 ==

== ENCOUNTER 2023-08-08 09:33 | Outpatient (REF) | payer BC, SELFPAY ==
--- NOTE | ~2023-08-08 | CT_ITS ---
EXAMINATION: CT CHEST SCREENING CLINICAL INFORMATION: Current smoker. 27 pack year history. COMPARISON: Previous chest CT most recent June 2022 TECHNIQUE: Multidetector volumetric CT imaging of the chest is performed without contrast using low dose technique. Additional 2D coronal and sagittal reformatted images and axial 3D maximum intensity projection (MIP) images are generated on the CT workstation. This CT examination was performed using dose optimization techniques as appropriate, variously including the following: *Automated exposure control *Adjustment of mA and/or kV according to patient size (this includes techniques or standardized protocols for targeted exams where dose is matched to indication/reason for exam; i.e. extremities or head) *Use of iterative reconstruction technique DLP: 45 mGy-cm FINDINGS: LUNGS: Heterogeneous attenuation in the upper lobes with increased centrilobular attenuation questionable for mild airways disease. There is a 3 mm right lower lobe nodule axial image 215 series 5. There is a 2 mm peripheral or subpleural right lower lobe nodule axial image 333 series 5. These are stable. There is minimal scarring or subsegmental atelectasis in the inferior segment of the lingula. The lungs are otherwise clear. MEDIASTINUM: The mediastinum is normal. CORONARY ARTERY CALCIFICATION: Mild PLEURA: There is no pleural effusion. No pleural mass or thickening. AXILLA: No chest wall mass. Small bilateral axillary lymph nodes similar to prior exam. UPPER ABDOMEN: Diverticulosis of the colon. OSSEOUS STRUCTURES: Degenerative changes of the spine. CT/CT lung screening IMPRESSION: Stable small pulmonary nodules. Heterogeneous increased central lobular attenuation in the upper lobes questionable for airways disease. ASSESSMENT: Lung-RADS category 2: Benign RECOMMENDATION: Annual low-dose chest CT follow-up recommended
== END 2023-08-08 09:34 | disposition home or self-care (01) ==
LOC: HO.CT 09:33
PROVIDERS: Visit Provider Physician Assistant Medical
DX: Z12.2 Encounter for screening for malignant neoplasm of respiratory organs (principal); F17.210 Nicotine dependence, cigarettes, uncomplicated
CPT/HCPCS: 71271

== ENCOUNTER 2024-04-30 06:22 | Outpatient (REF) | payer BC, SELFPAY ==
[2024-04-30 10:14] LABS: MANUAL DIFF FLAG NO
[2024-04-30 10:20] LABS: Basophils Absolute Auto 0.1 X10*3/uL (0.0-0.2); Basophils Percent Auto 0.7 % (0-2); Eosinophils Absolute Auto 0.1 X10*3/uL (0.0-0.4); Eosinophils Percent Auto 1.4 % (0-4); Hematocrit 42.7 % (37.0-47.0); Hemoglobin 13.4 g/dl (12.0-16.0); Imm Gran Abs Auto 0.09 X10*3/uL (0.00-0.03); Lymphocytes Absolute Auto 3.8 X10*3/uL (1.2-4.9); Lymphocytes Percent Auto 41.7 % (20-40); Mean Corpuscular HGB Conc 31.4 g/dl (31.0-35.0); Mean Corpuscular Hemoglobin 31.6 pg (27.0-33.0); Mean Corpuscular Volume 100.7 fL (80.0-98.0); Mean Platelet Volume 12.3 fL (9.4-12.3); Monocytes Absolute Auto 0.6 X10*3/uL (0.1-1.2); Monocytes Percent Auto 6.9 % (2-11); Neutrophils Absolute Auto 4.4 x10*3/uL (2.0-8.3); Neutrophils Percent Auto 48.3 % (45-73); Platelet Count 256 X10*3/uL (160-400); Red Blood Count 4.24 X10*6/uL (4.20-5.50); Red Cell Distribution Width 13.5 % (11.0-16.0); White Blood Count 9.1 X10*3/uL (4.8-10.8)
[2024-04-30 10:22] LABS: Appearance Urine Cloudy; Color Urine Yellow; Glucose Urine UA Negative (Negative); Leukocyte Esterase Urine Trace (Negative); Nitrite Urine Negative (Negative); PH 5.5 (5.0-9.0); Specific Gravity - Urine 1.015 (1.005-1.025); UMIC TRIGGER UACC YES; Urine Blood Small (1+) (Negative); Urine Ketones Negative (Negative); Urine Protein Negative (Neg-Trace)
[2024-04-30 10:30] LABS: Bacteria Urine 3+ (None Seen); Hyaline Casts Urine 0-2 /LPF (0-2); UACC Culture Trigger YES
[2024-04-30 10:38] LABS: Alanine Aminotransferase 43 U/L (0-31); Albumin Level 4.2 g/dL (3.5-5.0); Alkaline Phosphatase 107 U/L (39-117); Anion Gap 16 (12-20); Aspartate Amino Transferase 30 U/L (5-31); Bilirubin Total 0.2 mg/dL (0.0-1.0); Blood Urea Nitrogen 12 mg/dL (9-16); Calcium 9.8 mg/dL (8.4-10.2); Carbon Dioxide 22 mmol/L (22-29); Chloride 109 mmol/L (96-108); Cholesterol 223 mg/dL (<200); Estimated Glomerular Filt Rate > 60; Glucose Fasting 103 mg/dL (60-99); HDL Cholesterol 34 mg/dL (>40); LDL Cholesterol Calculated 145 mg/dL (<100); Potassium 4.6 mmol/L (3.3-5.1); Sodium 142 mmol/L (135-145); Total Protein 7.1 g/dL (6.5-8.0); Triglycerides 221 mg/dL (<150)
[2024-04-30 10:54] LABS: Vitamin D 25-OH Total 67.7 ng/mL (>30)
== END 2024-04-30 06:23 | disposition home or self-care (01) ==
LOC: HO.HMGCLDS 06:22
PROVIDERS: PCP Internal Medicine; Visit Provider Internal Medicine
DX: Z00.00 Encounter for general adult medical examination without abnormal findings (principal); E78.00 Pure hypercholesterolemia, unspecified; D72.820 Lymphocytosis (symptomatic); I10 Essential (primary) hypertension; E55.9 Vitamin D deficiency, unspecified; R82.90 Unspecified abnormal findings in urine
CPT/HCPCS: 36415; 80053; 80061; 81001; 82306; 85025; 87086

== ENCOUNTER 2024-06-06 10:24 | Outpatient (REF) | payer BC, SELFPAY ==
--- NOTE | ~2024-06-06 | US_ITS ---
EXAMINATION: US EXTRACRANIAL CAROTID DUPLEX, BILATERAL CLINICAL INFORMATION: Bilateral carotid artery disease, left carotid bruit. COMPARISON: Carotid ultrasound 06/20/2023. TECHNIQUE: Real-time ultrasound and Doppler techniques (integrating B-mode 2-D vascular images, Doppler spectral analysis and color-flow Doppler imaging) were utilized to interrogate the extracranial carotid arteries, the vertebral arteries and proximal subclavian arteries bilaterally. The degree of stenosis is determined by criteria similar to NASCET. FINDINGS: Right Side: 1. There is mild atherosclerotic plaque seen in the bifurcation/proximal ICA region. 2. The common carotid artery PSV proximally is 116 cm/s and distally 106 cm/s. 3. The proximal internal carotid artery velocities are 92 cm/s systolic and 25 cm/s diastolic. 4. The proximal external carotid artery PSV is 113 cm/s. 5. The vertebral artery shows antegrade flow. 6. The subclavian artery waveforms are biphasic. Left Side: 1. There is mild atherosclerotic plaque seen in the bifurcation/proximal ICA region. 2. The common carotid artery PSV proximally is 127 cm/s and distally 103 cm/s. 3. The proximal internal carotid artery velocities are 138 cm/s systolic and 48 cm/s diastolic. 4. The proximal external carotid artery PSV is 146 cm/s. 5. The vertebral artery shows antegrade flow. 6. The subclavian artery waveforms are biphasic. US/US carotid duplex BI IMPRESSION: 1. RIGHT: Minimal, non-hemodynamically significant stenosis of the proximal right internal carotid artery corresponding to a 0-49% stenosis by velocity criteria. 2. LEFT: Moderate, hemodynamically significant stenosis of the proximal left internal carotid artery corresponding to a 50-79% stenosis by velocity criteria. 3. Disease category has increased on the left compared to 06/20/2023. Electronically signed by: Ziggy Hopkins MD 06/06/2024 01:28 PM EDT
== END 2024-06-06 10:25 | disposition home or self-care (01) ==
LOC: HO.HMGCX 10:24
PROVIDERS: PCP Internal Medicine; Visit Provider Internal Medicine
DX: I77.9 Disorder of arteries and arterioles, unspecified (principal); I10 Essential (primary) hypertension; R09.89 Other specified symptoms and signs involving the circulatory and respiratory systems
CPT/HCPCS: 93880

== ENCOUNTER 2024-06-27 07:49 | Outpatient (REF) | payer BC, SELFPAY ==
--- NOTE | ~2024-06-27 | MM_ITS ---
EXAMINATION: MM SCREENING DIGITAL BREAST TOMOSYNTHESIS, BILATERAL CLINICAL INFORMATION: Screening. Asymptomatic. COMPARISON: Mammography: This study is compared with prior exams dating back to 2014, most recently 06/22/2023. TECHNIQUE: Digital breast tomosynthesis is performed in both the craniocaudal and mediolateral oblique views along with computer-aided detection (CAD). Synthesized 2D images are generated from the tomosynthesis. Added full-field 3-D left MLO view was also obtained. FINDINGS: The breasts are heterogeneously dense, which may obscure small masses (ACR BI-RADS breast composition Category c). In the axillary tail of the left breast, there is a 1 view asymmetry overlying the pectoralis muscle seen on the MLO repeat view only, which may have a fatty hilum, and may represent a benign lymph node, however spot compression view of this finding is recommended in MLO view for confirmation. In addition, an exaggerated lateral left CC is also recommended. 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 An asymmetry in the anterior lower right breast on the MLO view has no CC correlate, and has also been stable since 2014. This is benign. Otherwise, there are no suspicious masses, suspicious grouped calcifications, or areas of architectural distortion in either breast. The parenchymal pattern is stable from prior exams. There is no skin or axillary abnormality. MM/MM tomosynthesis screening BI IMPRESSION: 1. 1 view asymmetry in the right breast axillary tail region, likely representing a lymph node, seen only on the repeat MLO view. Diagnostic views recommended as described above for confirmation. 2. No suspicious findings in the right breast. Stable benign findings. ASSESSMENT: BI-RADS BI-RADS 0 - Incomplete: Needs additional Imaging. RECOMMENDATION: 1. Additional views of the left breast. 2. Targeted ultrasound if warranted after review of the additional views. 3. Radiology department staff will contact the patient for additional imaging. Additional Imaging required This examination should not preclude the clinical evaluation of a suspicious palpable abnormality. Electronically signed by: Ashish Munoz MD 06/27/2024 01:22 PM EDT
== END 2024-06-27 07:50 | disposition home or self-care (01) ==
LOC: HO.MAMMO 07:49
PROVIDERS: PCP Internal Medicine; Visit Provider Internal Medicine
DX: Z12.31 Encounter for screening mammogram for malignant neoplasm of breast (principal)
CPT/HCPCS: 77063; 77067

== ENCOUNTER → 2024-06-27 08:00 | Outpatient (BNV) | payer BC, SELFPAY | PROVIDERS: PCP Internal Medicine; Visit Provider Radiology Diagnostic Radiology | DX: Z12.31 Encounter for screening mammogram for malignant neoplasm of breast (principal) | CPT/HCPCS: 77063; 77067 ==

== ENCOUNTER 2024-07-05 08:03 | Outpatient (AMB) | payer BC, SELFPAY ==
--- NOTE | 2024-07-05 08:08 | MHC.OFFVIS ---
Vital Signs 07/05/24 08:16 Height 4 ft 10 in Weight 153 lb BMI 32.0 BP 130/76 Intake Visit Reasons: New patient Pelvic pain Compensation Associate Required: No Information Interpreted: non-clinical & clinical Safety Compliance Specialist: Safety Compliance Specialist Present (Amanda MONTALVO) Accompanied by: Self / Same As Patient Allergies Sulfa (Sulfonamide Antibiotics) [SULFA (SULFONAMIDE ANTIBIOTICS)] Allergy (Intermediate, Verified 07/05/24 08:17) RASH Post menopausal: Yes HPI Comments Details: Presenting referred from her primary care physician regarding pelvic fullness on pelvic exam, the patient has no symptoms no pelvic pain and or pressure no vaginal bleeding or discharge no other GI or symptoms. Last co testing was in 01/24 was negative this was preceded by normal Pap smears in 2010, 2012 and 2013 [facility] Medical History Hypertension Hyperlipidemia Impaired fasting glucose Osteoporosis (~2013) Nicotine dependence, cigarettes, uncomplicated Vitamin D deficiency Tubular adenoma of colon (~2007) Obesity (BMI 30-39.9) COVID-19 vaccine series completed Surgical History Hx of cataract surgery History of laryngoscopy History of breast biopsy History of colonoscopy Hx of wisdom tooth extraction Family History Father No problems noted. Mother CVD (cardiovascular disease) Social History Household Members: Spouse Household Members Other:: Housing Other:: mobile home Are you a primary director critical care to a significant other at home: No Do you presently have visiting nurse or other home services: No Alcohol intake: never Patient Tobacco Use Status: Current everyday Tobacco user Tobacco use type: Cigarette Cigarettes Per Day: 6 Years Smoked: 25+ Review of Systems Const All systems reviewed & are unremarkable except as noted in HPI and below Physical Exam Vital Signs: Last Vital Signs BP 130/76 07/05/24 08:16 BMI result Body Mass Index 32.0 General: Yes no CVA tenderness External Female Exam: normal external appearance and normal appearance of the urethra Speculum Exam - Vagina: normal appearance of the vagina, normal palpation, no lesions and no masses Speculum Exam - Cervix: normal appearance of the cervix, normal palpation, no lesions, no masses and nontender Bimanual exam- vagina & uterus: normal bimanual exam, normal palpation, uterine size normal, normal palpation, uterine shape normal, No Cervical tenderness present and non-tender Bimanual Exam- Adnexa, other: normal adnexae Back/Spine/Pelvis Back: no CVA tenderness Assessment & Plan Assessment & Plan (1) Pelvic fullness: Code(s): R19.00 - Intra-abdominal and pelvic swelling, mass and lump, unspecified site Category: Medical Plan: Explained to the patient the finding on pelvic exam, will order pelvic ultrasound to rule out pelvic pathology. Instructions given the patient to schedule pelvic ultrasound and a follow-up appointment. All questions answered, the patient verbalized understanding Orders: Orders US pelvic and transvaginal Today R19.00 - Intra-abdominal and pelvic swelling, mass and lump, unspecified site Coding Level of Care Code New Pt Level 3 (38425) Diagnoses Pelvic fullness R19.00
[2024-07-05 08:16] VITALS: BP 130/76; BMI 32.0
== END 2024-07-05 08:34 | disposition home or self-care (01) ==
PROVIDERS: PCP Internal Medicine; Visit Provider Obstetrics & Gynecology
DX: R19.00 Intra-abdominal and pelvic swelling, mass and lump, unspecified site (principal)
CPT/HCPCS: 99203

== ENCOUNTER 2024-07-05 08:03 | Outpatient (REF) | payer BC, SELFPAY | END 2024-07-05 08:04 | disposition home or self-care (01) | LOC: HO.LNP 08:03 | PROVIDERS: PCP Internal Medicine; Visit Provider Obstetrics & Gynecology | DX: Z13.89 Encounter for screening for other disorder (principal) ==

== ENCOUNTER 2024-07-12 10:32 | Outpatient (REF) | payer BC, SELFPAY ==
--- NOTE | ~2024-07-12 | US_ITS ---
EXAMINATION:US PELVIS TRANSABDOMINAL AND TRANSVAGINAL CLINICAL INFORMATION: R10.2 - Pelvic and perineal pain COMPARISON: No priors available. LMP: Postmenopausal FINDINGS: UTERUS: The uterus is anteverted. Size: 7.2 x 2.4 x 3.1 cm. Uterine mass: Intramural uterine mass likely fibroid 1 x 0.9 x 0.8 cm. Cervix: Grossly unremarkable. Endometrium: No ultrasound evidence of endometrial lesion. endometrial thickness measures 0.3 cm ADNEXA: Normal Right ovary: Normal in size. Left ovary: Not visualized might be atrophic or obscured by bowel gas. Doppler exam: Normal Doppler flow identified in both ovaries. FREE FLUID: Trace amount of free fluid. OTHER FINDINGS: None US/US pelvic and transvaginal IMPRESSION: * Intramural uterine mass likely fibroid 1 cm. * Left ovary not visualized might be atrophic or obscured by bowel gas. Electronically signed by: Lulú Sheehan MD 08/23/2024 08:01 AM [facility] [place]
== END 2024-07-12 10:33 | disposition home or self-care (01) ==
LOC: HO.US 10:32
PROVIDERS: PCP Internal Medicine; Visit Provider Obstetrics & Gynecology
DX: R19.00 Intra-abdominal and pelvic swelling, mass and lump, unspecified site (principal)
CPT/HCPCS: 76830; 76856

== ENCOUNTER 2024-08-02 13:13 | Outpatient (REF) | payer BC, SELFPAY ==
--- NOTE | ~2024-08-02 | MM_ITS ---
EXAMINATION: MM DIAGNOSTIC DIGITAL BREAST TOMOSYNTHESIS, LEFT CLINICAL INFORMATION: Diagnostic; evaluate one view asymmetry overlying the pectoralis muscle seen on MLO view only, possibly a lymph node. COMPARISON: Mammography: Screening mammography 06/27/2024. Exams dating back to 2012. TECHNIQUE: Digital breast tomosynthesis is performed in the following views: 3-D full field digital left mediolateral view x2, 3-D full field left laterally exaggerated CC view, and 3-D left spot compression MLO view. FINDINGS: The breasts are heterogeneously dense, which may obscure small masses (ACR BI-RADS breast composition Category c). Diagnostic views demonstrate asymmetry of concern on the far posterior MLO view left breast has a reniform shape, abuts a vessel, and demonstrates a prominent fatty hilum. This is consistent with a benign lymph node. There are no findings suspicious for malignancy. MM/MM tomosynthesis added views L IMPRESSION: -There are no findings suspicious for malignancy left breast. -Asymmetry in question in the posterior left MLO view overlying the pectoralis muscle is consistent with a benign small lymph node. No further follow-up recommended. -Recommend the patient return to routine annual screening mammography. ASSESSMENT: BI-RADS BI-RADS 2 - Benign Findings RECOMMENDATION: 1 year F/U Results were provided to the patient at time of visit by the technologist. This patient's information was entered into a reminder system with a target due date for their next mammogram. Electronically signed by: Ashish Munoz MD 08/02/2024 02:04 PM EDT
== END 2024-08-02 13:14 | disposition home or self-care (01) ==
LOC: HO.MAMMO 13:13
PROVIDERS: PCP Internal Medicine; Visit Provider Internal Medicine
DX: N64.89 Other specified disorders of breast (principal)
CPT/HCPCS: 77061; 77065

== ENCOUNTER → 2024-08-02 13:30 | Outpatient (BNV) | payer BC, SELFPAY | PROVIDERS: PCP Internal Medicine; Visit Provider Radiology Diagnostic Radiology | DX: D36.0 Benign neoplasm of lymph nodes (principal) | CPT/HCPCS: 77061; 77065 ==

== ENCOUNTER 2024-08-14 08:19 | Outpatient (REF) | payer BC, SELFPAY | END 2024-08-14 08:20 | disposition home or self-care (01) | LOC: HO.CT 08:19 | PROVIDERS: PCP Internal Medicine; Visit Provider Physician Assistant Medical | DX: Z12.2 Encounter for screening for malignant neoplasm of respiratory organs (principal); F17.210 Nicotine dependence, cigarettes, uncomplicated | CPT/HCPCS: 71271 ==

== ENCOUNTER 2024-09-13 14:15 | Outpatient (AMB) | payer BC, SELFPAY ==
--- NOTE | 2024-09-13 14:24 | MHC.OFFVIS ---
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 Patient states she gets one every year. 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 This was of routine workup for left carotid bruit. She had been receiving routine surveillance by her primary care team and was noted to have an increase on the left side. Upon discussion with her she is asymptomatic from this. She denies any lateralizing signs or symptoms speech disturbances or visual field deficits. Of note she smokes about a half pack per day and is a nondiabetic. She is being maintained on high-dose statin and is not on an aspirin. [facility] Medical History Hypertension Hyperlipidemia Impaired fasting glucose Osteoporosis (~2013) Nicotine dependence, cigarettes, uncomplicated Vitamin D deficiency Tubular adenoma of colon (~2007) Obesity (BMI 30-39.9) COVID-19 vaccine series completed Surgical History Hx of cataract surgery History of laryngoscopy History of breast biopsy History of colonoscopy Hx of wisdom tooth extraction Family History Father No problems noted. Mother CVD (cardiovascular disease) Social History Household Members: Spouse Household Members Other:: Housing Other:: mobile home Are you a primary healthcare educator to a significant other at home: No Do you presently have visiting nurse or other home services: No Alcohol intake: never Patient Tobacco Use Status: Current everyday Tobacco user Tobacco use type: Cigarette Cigarettes Per Day: 6 Years Smoked: 25+ Review of Systems Const All systems reviewed & are unremarkable except as noted in HPI and below Reports no additional complaints ENT Reports Normal hearing present Card Denies chest pain, Denies chest pain at rest, Denies chest pain with activity and Denies pedal edema Resp Denies cough GI Denies abdominal pain Musc Denies abnormal gait, Denies muscle cramps and Denies radiating pain into limb Skin/Breast Denies skin ulcer and Denies wounds Neuro Reports Normal hearing present and Denies abnormal gait Psych Reports no additional complaints Physical Exam Const General: cooperative, healthy appearing and comfortable Orientation/consciousness: oriented to person, oriented to place and oriented to time HEENT Head: Yes normal to inspection Neck Neck: Yes normal visual inspection Carotids: no bruits Chest Chest palpation & inspection: normal inspection of the chest Resp Effort & Inspection: normal respiratory effort and able to speak in complete sentences Auscultation: clear to auscultation bilaterally, no crackles, no rales, no rhonchi and no wheezes Cardio Rate: regular rate Rhythm: regular rhythm Heart sounds: S1 normal heart sound present and S2 normal heart sound present Bruits: no carotid bruits Peripheral pulses: Peripheral pulses 2+ throughout GI Inspection: Yes normal to inspection Skin Wounds: no wounds Hair: normal Neuro General: oriented to person, oriented to place and oriented to time Cranial nerves: Yes CN's II-XII intact bilaterally and Yes Normal hearing present Cognition (Neuro): normal cognition Motor exam (neuro): 5/5 motor strength present throughout Extrem Other: venous exam: No significant superficial varicosities or spider telangiectasias, minimal edema General: No clubbing, No cyanosis and No edema Psych Appearance: grossly normal Mental Status: mental status grossly normal Speech and movement: Normal speech and movement present Results Reviewed Results Reviewed: Noninvasive carotid testing dated 06/06/2024 demonstrates right-sided 0-49 left side 50-79% stenosis with a peak systolic of only 138. I do believe the left side will be on the low end of this range. Assessment & Plan Assessment & Plan (1) Carotid stenosis: Code(s): I65.29 - Occlusion and stenosis of unspecified carotid artery Category: Medical Qualifiers: Laterality: bilateral Qualified Code(s): I65.23 - Occlusion and stenosis of bilateral carotid arteries Plan: In short patient has asymptomatic carotid disease. We have reviewed signs and symptoms of a stroke. We also discussed risk factor modification inclusive a healthy diet low in cholesterol. The patient will follow up with us with surveillance ultrasound of the carotids 1 year. Should there be any changes or signs or symptoms of a stroke we will be happy to see them back sooner. We have requested that she start a baby aspirin as well. Thank you for allowing us to participate in this patient's care. If there are any questions or concerns please do not hesitate to contact us. Orders: Orders US carotid duplex BI 1 Year I65.23 - Occlusion and stenosis of bilateral carotid arteries Coding Level of Care Code New Pt Level 4 (15512) Complex EM visit Add On G2211 Diagnoses Bilateral carotid artery stenosis I65.23 Laterality: bilateral
--- OUTSIDE RECORDS SUMMARY | 2024-09-19 03:05 | XMS_ITS ---
Author Organization Avery Collier MD Address [address] [place] [id number] Care Team Providers Care Manager Vehicle Name Role Phone Avery Collier Primary Care Provider REASON FOR VISIT Carotid US due Encounters Encounter Location Date Provider Diagnosis Avery Collier MD [address] [place] [address] [place] [phone] 05/24/2024 Avery Collier PLAN OF TREATMENT Next Appt Details Provider Name:Avery bucio, 11/09/2024 07:00:00 AM, [address] [place] [address], [address], [phone], Provider Name:Avery bucio, 11/15/2024 07:30:00 AM, [address] [place] [address], [place] [address], [place], [place], [phone], Provider Name:Avery bucio, 05/02/2025 07:30:00 AM, [address], [address], [place], [phone], Provider Name:Avery bucio, 05/09/2025 08:00:00 AM, [address], [address], [place], [phone],
--- OUTSIDE RECORDS SUMMARY | 2024-09-19 03:05 | XMS_ITS ---
Author Organization Avery Collier MD Address [address] [place], [place] [phone] Care Team Providers Care Avionics System Engineer Name Role Phone Avery Collier Primary Care Provider [phone] REASON FOR REFERRAL Reason bilateral carotid ar jayda disease Diagnosis 1 Atherosclerosis of b oth carotid arteries (I65.23) Diagnosis 2 Bilateral carotid ar jayda disease, 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) Referral Organization Avery Collier MD Referring Provider First Name Avery Referring Provider Last Name Nando Referring Provider Speciality Internal M edicine Referred Provider CHAYO AVITIA Referred Provider Specialty Vascular Jessica sohail General Notes Idania Grant 11:01:43 AM EDT > info faxed , Idania Grant 06/15/2024 10:50:44 AM EDT > was told to refaxed referral Rudy Annette 06/19/2024 02:24:30 PM EDT > info mailed to patient Referral Priority Routine Referral Appointment Date 08/28/2024 REASON FOR VISIT referral to vascular surgeon Encounters Encounter Location Date Provider Diagnosis Avery Collier MD [address] [place] [address] [address] [place], [place] [phone] 06/07/2024 Avery Collier PLAN OF TREATMENT Referrals Referral Date Details 08/28/2024 08/28/2024, bilatera l carotid artery disease , CHAYO AVITIA Next Appt Details Provider Name:Avery Otto ier, 11/09/2024 07:00:00 AM, [address] [place] [address], [address], [place], [place], [phone], Provider Name:Avery bucio, 11/15/2024 07:30:00 AM, [address] [place] [address], [address], [place], [place], [phone], Provider Name:Avery bucio, 05/02/2025 07:30:00 AM, [address] [place] [address], [address], [place], [place], [phone], Provider Name:Avery luisr, 05/09/2025 08:00:00 AM, [address] [place] [address], [address], [place], [place], [phone], Consultation Request Notes Referral Date Referring Provider Referred Provider Not es 06/12/2024 Avery Collier SANDIP bilateral c arotid artery disease
--- OUTSIDE RECORDS SUMMARY | 2024-09-19 03:05 | XMS_ITS ---
Author Organization Avery Collier MD Address [address] [place] [phone] Care Team Providers Care Food Mixer Name Role Phone Avery Collier Primary Care Provider [phone] REASON FOR VISIT HDF IMMUNIZATIONS Vaccine Route Administration Date Status Comme nts Influenza High Dose IM Intramuscular 07/10/2024 Administer ed Encounters Encounter Location Date Provider Diagnosis Avery Collier MD [address] [place], [place] [phone] 07/10/2024 Avery Collier Encounter for immunization Z23 ASSESSMENTS Encounter Date Diagnosis Assessment Notes Treatment Notes Treatment Clinical Notes 07/10/2024 Encounter for immunization (ICD-10 - Z23) PLAN OF TREATMENT Next Appt Details Provider Name:Avery bucio, 11/09/2024 07:00:00 AM, [address] [facility], [address] [facility], [place], [place], [phone], Provider Name:Avery bucio, 11/15/2024 07:30:00 AM, [address] [place] [address], [address], [place], [phone], Provider Name:Avery bucio, 05/02/2025 07:30:00 AM, [address] [place] [address], [address], [place], [phone], Provider Name:Avery bucio, 05/09/2025 08:00:00 AM, [address] [place] [address], [address], [place], [phone],
--- OUTSIDE RECORDS SUMMARY | 2024-09-19 03:05 | XMS_ITS | Patient Health Record ---
Author Organization [facility] Address [address] [place] [address] Care Team Providers Care Human Resources Admin Name Role Phone Avery Collier MD Primary Care Provider Calderon Hu [phone] ALLERGIES Allergen (clinical drug ingredient) Drug/Non Drug Allergy documented on EMR Reaction Allergy Type Onset Date Status Sulfa Unknown Drug Allergy Active REASON FOR REFERRAL No Information MEDICATIONS Medication SIG (Take, Route, Frequency, Duration) Notes Start Date End Date Status Vitamin D Active Valsartan 80 MG 1 tablet Orally Once a day for 30 day(s) Active Atorvastatin Calcium 80 MG 1 tablet Oral ly Once a day Active Calcium 600 600 MG as directed Orally Active IMMUNIZATIONS Vaccine Route Administration Date Status Comme nts Influenza Unknown 09/01/2021 Administered SOCIAL HISTORY Sex Assigned At : Social History Observation Description Sex Assigned At Unknown PROBLEMS Problem Type ICD Code Onset Dates Problem Status W/U Status Risk SNOMED Code Notes Problem Encounter for screening for malignant neoplasm of colon (Z12.11) Active confirmed 432829001 Problem History of adenomatous polyp of colon (Z86.010) Active confirmed 309215994 Problem Encounter for screening for malignant neoplasm of rectum (Z12.12) Active confirmed Screening fo r malignant neoplasm of rectum (341071277) Problem Preprocedural examination (Z01.818) Active confirmed 58832064 Problem Hx of adenomatous colonic polyps (Z86.010) Active confirmed 438182138 Problem Diverticulosis of colon (K57.30) Active confirmed Diverticulosi s of colon (759244614) PLAN OF TREATMENT Future Test Test Name Order Date COLONOSCOPY 03/24/2016 COLONOSCOPY 09/22/2021 Insurance Providers Payer Name Payer Address Payer Phone Subscriber Number Group Number Insured Name Patient Relationship to Insured Coverage Start Date Coverage End Date [facility] [address] [place] [address] [id number] SIVA HUFFMAN Self - patient is the insured MEDICAL (GENERAL) HISTORY Medical History History ICD Code Screening colonoscopy 02-29-2008- small tubular adenomas removed Denies HI,DM,CVA,Lung disease,renal dise ase Hyperlipidemia Colonoscopy in 03/2013--great er than 1 cm flat tubular adenoma removed from the transverse colon High blood pressure Osteoporosis Negative colonoscopy in 06/2016 Surgical History Surgery Date(Month/Year) Surgery of the right breast for benign d isease
--- OUTSIDE RECORDS SUMMARY | 2024-09-19 03:05 | XMS_ITS | Patient Health Record ---
Author Organization Avery Collier MD Address [address] [place], [place] [id number] Care Team Providers Care Car Knocker Name Role Phone Avery Collier Primary Care Provider ALLERGIES Allergen (clinical drug ingredient) Drug/Non Drug Allergy documented on EMR Reaction Allergy Type Onset Date Status Medicinal product containing thiazide and acting as diuretic agent (product) Thiazide-Type Diuretics Unknown Drug Allergy Active sulfamethoxazole / trimethoprim bactrim (uncoded) rash Allergy Active RESULTS Component Value Reference Range Notes Urine Culture Reviewed date:05/01/2024 12:33:29 PM Interpretation: Performing Lab:[facility], [address] [place] [phone] Notes/Report: Urine Culture Report Result Urine Culture > 100,000 cfu/ml Urine Culture Mixed bacterial ashleigh a characteristic of Urine Culture urogenital contamination. Complete Blood Count Auto Di ff Reviewed date:04/30/2024 05:38:51 PM Interpretation: Performing Lab:[facility], [address] [place] [phone] Notes/Report: White Blood Count 9.1 4.8-10.8 X10*3/uL Red Blood Count 4.24 4.20-5.50 X10*6/uL Hemoglobin 13.4 12.0-16.0 g/dl Hematocrit 42.7 37.0-47.0 % Mean Corpuscular Volume 100.7 80.0-98.0 fL Mean Corpuscular Hemoglobin 31.6 27.0-33.0 pg Mean Corpuscular HGB Conc 31.4 31.0-35.0 g/dl Red Cell Distribution Width 13.5 11.0-16.0 % Platelet Count 256 160-400 X10*3/uL Mean Platelet Volume 12.3 9.4-12.3 fL Neutrophils Percent Auto 48.3 45-73 % Imm Gran Pct Auto 1.0 0.0-0.4 % Lymphocytes Percent Auto 41.7 20-40 % Monocytes Percent Auto 6.9 2-11 % Eosinophils Percent Auto 1.4 0-4 % Basophils Percent Auto 0.7 0-2 % NRBC Pct Auto 0.0 0.0-0.2 /100WBC Neutrophils Absolute Auto 4.4 2.0-8.3 x10*3/uL Imm Gran Abs Auto 0.09 0.00-0.03 X10*3/uL Lymphocytes Absolute Auto 3.8 1.2-4.9 X10*3/uL Monocytes Absolute Auto 0.6 0.1-1.2 X10*3/uL Eosinophils Absolute Auto 0.1 0.0-0.4 X10*3/uL Basophils Absolute Auto 0.1 0.0-0.2 X10*3/uL NRBC Abs Auto 0.000 0.0-0.012 X10*3/uL Comprehensive [place]. Panel Fa st Reviewed date:04/30/2024 01:20:33 PM Interpretation: Performing Lab:[facility], [address] [place] [phone] Notes/Report: Sodium 142 135-145 mmol/L Potassium 4.6 3.3-5.1 mmol/L Chloride 109 96-108 mmol/L Carbon Dioxide 22 22-29 mmol/L Anion Gap 16 12-20 Blood Urea Nitrogen 12 9-16 mg/dL Creatinine 0.92 0.5-1.4 mg/dL Estimated Glomerular Filt Rate > 60 NOTE: For -Pakistani individuals, multiply the result by 1.210. Chronic Kidney Disease: Estimated GFR < 60 mL/min/1.73m2 Severe Kidney Disease: Estimated GFR < 15 mL/min/1.73m2 Glucose Fasting 103 60-99 mg/dL A fasting glucose from 100-125 mg/dl is considered impaired (pre-diabetes). Calcium 9.8 8.4-10.2 mg/dL Bilirubin Total 0.2 0.0-1.0 mg/dL Aspartate Amino Transferase 30 5-31 U/L Alanine Aminotransferase 43 0-31 U/L Total Protein 7.1 6.5-8.0 g/dL Albumin Level 4.2 3.5-5.0 g/dL Alkaline Phosphatase 107 39-117 U/L Lipid Panel Reviewed date:04/30/2024 12:36:51 PM Interpretation: Performing Lab:[facility], [address] [place] [phone] Notes/Report: Triglycerides 221 <150 mg/dL Desirable Triglyceride: less than 150 mg/dL Borderline High Triglyceride 150-199 mg/dL High Triglyceride: 200-499 mg/dL Very High Triglyceride: greater than or equal to 5OO mg/dL Cholesterol 223 <200 mg/dL Desirable Cholesterol: less than 200 mg/dL Borderline High Cholesterol: 200-239 mg/dL High Cholesterol: greater than 239 mg/dL LDL Cholesterol Calculated 145 <100 mg/dL Desirable LDL: less than 100 mg/dL Near Optimal/Above Optimal LDL: 110-129 mg/dL Borderline High LDL: 130-159 mg/dL High LDL: 160-189 mg/dL Very High LDL: greater than or equal to 190 mg/dL HDL Cholesterol 34 >40 mg/dL Desirable HDL: greater than 40 mg/dL Note: This HDL assay may give artificially low results in patients with liver disease. Vitamin D 25-OH Total Reviewed date:04/30/2024 12:37:26 PM Interpretation: Performing Lab:[facility], [address] [place] [phone] Notes/Report: Vitamin D 25-OH Total 67.7 >30 ng/mL Health Based Reference Values* < 20 ng/mL Deficient 20-30 ng/mL Insufficient > 30 ng/mL Sufficient *Luis Daniel RENEE. N Engl J Med. 2007;357:266-280 Care must be taken in interpreting Vitamin D results from different laboratories and methodologies. Published data demonstrated that results from patients undergoing hemodialysis may show a negative bias when tested with various automated 25-OH vitamin D assays when compared to LC-MS/MS. When testing samples from patients whose predominant form of Vitamin D is Vitamin D2, such as patients receiving Vitamin D2 supplementation, results that are subtherapeutic should be confirmed with another method such as LC-MS/MS. UA ClnCatch+Micro w/rflx Cul t Reviewed date:04/30/2024 05:39:12 PM Interpretation: Performing Lab:[facility], [address] [place] [phone] Notes/Report: Urine, Clean Catch Color Urine Yellow Appearance Urine Cloudy PH 5.5 5.0-9.0 Glucose Urine UA Negative Negative mg/dL Urine Blood Small (1+) Negative Specific [place] - Urine 1.015 1.005-1.025 Urine Protein Negative Neg-Trace mg/dL Urine Ketones Negative Negative mg/dL Nitrite Urine Negative Negative Leukocyte Esterase Urine Trace Negative RBC Urine 6-10 0-2 /HPF WBC Urine 6-10 0-5 /HPF Squamous Epithelial Cell Urine 11-20 0-2 /HPF Bacteria Urine 3+ None Seen Hyaline Casts Urine 0-2 0-2 /LPF Occult Blood, Stool, Guaiac Reviewed date:05/29/2024 11:20:11 AM Interpretation:Negative Performing Lab: Notes/Report: Negative Occult Blood, Stool, Guaiac Neg US carotid duplex BI Reviewed date:06/12/2024 11:03:30 AM Interpretation:left message for patient to call office Performing Lab: Notes/Report: [facility] [address] Ultrasound Report Signed Patient: Sandra Faustin MR#: [id number] : 1955 Acct:[id number] Age/Sex: 68 / F ADM Date: 06/06/24 Loc: HO.HMGCX Attending Dr: Avery Collier MD Ordering Physician: Avery Collier MD Date of Service: 06/06/24 Procedure(s): US carotid duplex BI Accession Number(s): [id number] cc: vAery Collier MD EXAMINATION: US EXTRACRANIAL CAROTID DUPLEX, BILATERAL CLINICAL INFORMATION: Bilateral carotid artery disease, left carotid bruit. COMPARISON: Carotid ultrasound 06/20/2023. TECHNIQUE: Real-time ultrasound and Doppler techniques (integrating B-mode 2-D vascular images, Doppler spectral analysis and color-flow Doppler imaging) were utilized to interrogate the extracranial carotid arteries, the vertebral arteries and proximal subclavian arteries bilaterally. The degree of stenosis is determined by criteria similar to NASCET. FINDINGS: Right Side: 1. There is mild atherosclerotic plaque seen in the bifurcation/proximal ICA region. 2. The common carotid artery PSV proximally is 116 cm/s and distally 106 cm/s. 3. The proximal internal carotid artery velocities are 92 cm/s systolic and 25 cm/s diastolic. 4. The proximal external carotid artery PSV is 113 cm/s. 5. The vertebral artery shows antegrade flow. 6. The subclavian artery waveforms are biphasic. Left Side: 1. There is mild atherosclerotic plaque seen in the bifurcation/proximal ICA region. 2. The common carotid artery PSV proximally is 127 cm/s and distally 103 cm/s. 3. The proximal internal carotid artery velocities are 138 cm/s systolic and 48 cm/s diastolic. 4. The proximal external carotid artery PSV is 146 cm/s. 5. The vertebral artery shows antegrade flow. 6. The subclavian artery waveforms are biphasic. US/US carotid duplex BI IMPRESSION: 1. RIGHT: Minimal, non-hemodynamically significant stenosis of the proximal right internal carotid artery corresponding to a 0-49% stenosis by velocity criteria. 2. LEFT: Moderate, hemodynamically significant stenosis of the proximal left internal carotid artery corresponding to a 50-79% stenosis by velocity criteria. 3. Disease category has increased on the left compared to 06/20/2023. Electronically signed by: Ziggy Hopkins MD 06/06/2024 01:28 PM EDT Dictated By: Ziggy Hopkins MD Signed By: <Electronically signed by Ziggy Hopkins MD in OV> 06/06/24 1328 DD/ 1042 TD/TT: 06/06/24 1102 Assistant Toddler Teacher: ASHWINI ZELAYA tomosynthesis screening B I Reviewed date:08/02/2024 05:29:45 PM Interpretation: Performing Lab: Notes/Report: [facility] [address] [place], [place] [address] Mammography Report Signed with Ashley Patient: Sandra Faustin MR#: [id number] : 1955 Acct:[id number] Age/Sex: 68 / F ADM Date: 06/27/24 Loc: HO.MAMMO Attending Dr: Avery Collier MD Ordering Physician: Avery Collier MD Results: 0In complete: Needs Additional Imaging Evaluation Date of Service: 06/27/24 Follow Up: Additional Imagi ng Procedure(s): MM tomosynthesis screening BI Accession Number(s): [id number] cc: Avery Collier MD ADDENDUM ADDENDUM #1 ADDENDUM: There is a laterality error in the impression of the report. It should read as follows: IMPRESSION: 1. 1 view asymmetry in the LEFT breast axillary tail region, likely representing a lymph node, seen only on the repeat MLO view. Diagnostic views recommended as described above for confirmation. 2. No suspicious findings in the right breast. Stable benign findings. Electronically signed by: Ashish Munoz MD 08/02/2024 03:50 PM EDT Addendum Dictated By: Ashish Munoz MD Addendum Signed By: <Electronically signed by Ashish Munoz MD in OV> 08/02/24 1550 Addendum Cosigned By: DD/ TD/TT: 06/27/24 EXAMINATION: MM SCREENING DIGITAL BREAST TOMOSYNTHESIS, BILATERAL CLINICAL INFORMATION: Screening. Asymptomatic. COMPARISON: Mammography: This study is compared with prior exams dating back to 2014, most recently 06/22/2023. TECHNIQUE: Digital breast tomosynthesis is performed in both the craniocaudal and mediolateral oblique views along with computer-aided detection (CAD). Synthesized 2D images are generated from the tomosynthesis. Added full-field 3-D left MLO view was also obtained. FINDINGS: The breasts are heterogeneously dense, which may obscure small masses (ACR BI-RADS breast composition Category c). In the axillary tail of the left breast, there is a 1 view asymmetry overlying the pectoralis muscle seen on the MLO repeat view only, which may have a fatty hilum, and may represent a benign lymph node, however spot compression view of this finding is recommended in MLO view for confirmation. In addition, an exaggerated lateral left CC is also recommended. 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 An asymmetry in the anterior lower right breast on the MLO view has no CC correlate, and has also been stable since 2015. This is benign. Otherwise, there are no suspicious masses, suspicious grouped calcifications, or areas of architectural distortion in either breast. The parenchymal pattern is stable from prior exams. There is no skin or axillary abnormality. MM/MM tomosynthesis screening BI IMPRESSION: 1. 1 view asymmetry in the right breast axillary tail region, likely representing a lymph node, seen only on the repeat MLO view. Diagnostic views recommended as described above for confirmation. 2. No suspicious findings in the right breast. Stable benign findings. ASSESSMENT: BI-RADS BI-RADS 0 - Incomplete: Needs additional Imaging. RECOMMENDATION: 1. Additional views of the left breast. 2. Targeted ultrasound if warranted after review of the additional views. 3. Radiology department staff will contact the patient for additional imaging. Additional Imaging required This examination should not preclude the clinical evaluation of a suspicious palpable abnormality. Electronically signed by: Ashish Munoz MD 06/27/2024 01:22 PM EDT Dictated By: Ashish Munoz MD Signed By: <Electronically signed by Ashish Munoz MD in OV> 06/27/24 1322 DD/ 0800 TD/TT: 06/27/24 0818 Assistant Toddler Teacher: US pelvic and transvaginal Reviewed date:08/23/2024 08:35:25 AM Interpretation: Performing Lab: Notes/Report: [address] [address] Ultrasound Report Signed Patient: Sandra Faustin MR#: [id number] : 1955 Acct:[id number] Age/Sex: 68 / F ADM Date: 07/12/24 Loc: HO.US Attending Dr: Rory Mosley MD Ordering Physician: Rory Mosley MD Date of Service: 07/12/24 Procedure(s): US pelvic and transvaginal Accession Number(s): [id number] cc: Avery Collier MD; Rory Mosley MD EXAMINATION:US PELVIS TRANSABDOMINAL AND TRANSVAGINAL CLINICAL INFORMATION: R10.2 - Pelvic and perineal pain COMPARISON: No priors available. LMP: Postmenopausal FINDINGS: UTERUS: The uterus is anteverted. Size: 7.2 x 2.4 x 3.1 cm. Uterine mass: Intramural uterine mass likely fibroid 1 x 0.9 x 0.8 cm. Cervix: Grossly unremarkable. Endometrium: No ultrasound evidence of endometrial lesion. endometrial thickness measures 0.3 cm ADNEXA: Normal Right ovary: Normal in size. Left ovary: Not visualized might be atrophic or obscured by bowel gas. Doppler exam: Normal Doppler flow identified in both ovaries. FREE FLUID: Trace amount of free fluid. OTHER FINDINGS: None US/US pelvic and transvaginal IMPRESSION: * Intramural uterine mass likely fibroid 1 cm. * Left ovary not visualized might be atrophic or obscured by bowel gas. Electronically signed by: Lulú Sheehan MD 08/23/2024 08:01 AM [facility] Dictated By: Lulú Sheehan MD Signed By: <Electronically signed by Lulú Sheehan MD in OV> 08/23/24 0801 DD/ 1047 TD/TT: 07/12/24 1057 Assistant Toddler Teacher: MM tomosynthesis added views L Reviewed date:08/02/2024 05:23:09 PM Interpretation: Performing Lab: Notes/Report: [facility] [address] [place] [address] [place] [address] Mammography Report Signed Patient: Sandra Faustin MR#: [id number] : 1955 Acct:[id number] Age/Sex: 68 / F ADM Date: 08/02/24 Loc: HO.MAMMO Attending Dr: Avery Collier MD Ordering Physician: Avery Collier MD Results: 2Be nign Findings Date of Service: 08/02/24 Follow Up: 1 Year From Orig ina Mammogram Procedure(s): MM tomosynthesis added views L Accession Number(s): [id number] cc: Avery Collier MD EXAMINATION: MM DIAGNOSTIC DIGITAL BREAST TOMOSYNTHESIS, LEFT CLINICAL INFORMATION: Diagnostic; evaluate one view asymmetry overlying the pectoralis muscle seen on MLO view only, possibly a lymph node. COMPARISON: Mammography: Screening mammography 06/27/2024. Exams dating back to 2012. TECHNIQUE: Digital breast tomosynthesis is performed in the following views: 3-D full field digital left mediolateral view x2, 3-D full field left laterally exaggerated CC view, and 3-D left spot compression MLO view. FINDINGS: The breasts are heterogeneously dense, which may obscure small masses (ACR BI-RADS breast composition Category c). Diagnostic views demonstrate asymmetry of concern on the far posterior MLO view left breast has a reniform shape, abuts a vessel, and demonstrates a prominent fatty hilum. This is consistent with a benign lymph node. There are no findings suspicious for malignancy. MM/MM tomosynthesis added views L IMPRESSION: -There are no findings suspicious for malignancy left breast. -Asymmetry in question in the posterior left MLO view overlying the pectoralis muscle is consistent with a benign small lymph node. No further follow-up recommended. -Recommend the patient return to routine annual screening mammography. ASSESSMENT: BI-RADS BI-RADS 2 - Benign Findings RECOMMENDATION: 1 year F/U Results were provided to the patient at time of visit by the technologist. This patient's information was entered into a reminder system with a target due date for their next mammogram. Electronically signed by: Ashish Munoz MD 08/02/2024 02:04 PM EDT Dictated By: Ashish Munoz MD Signed By: <Electronically signed by Ashish Munoz MD in OV> 08/02/24 1404 DD/ 1330 TD/TT: 08/02/24 1340 Assistant Toddler Teacher: REASON FOR REFERRAL Reason ABNORMAL PELVIC EXAM Diagnosis 1 Abnormal pelvic exam (Z01.411) Referral Organization Avery Collier MD Referring Provider First Name Avery Referring Provider Last Name Nando Referring Provider Speciality Internal M edicine Referred Provider RORY MOSLEY Referred Provider Specialty OB - Gynecol ogy General Notes Constanza Degroot 05/14/2024 08:45:15 AM EDT > REFERRAL FAXED 05/07, PHONE CALL INDICATES NO APPT YET OFFICE SHORT STAFFED , Constanza Degroot 07/06/2024 09:20:29 AM EDT > OFFICE NOTE FROM 07/05/24 APPT RECEIVED Referral Priority Routine Referral Appointment Date 07/05/2024 Reason bilateral carotid ar jayda disease Diagnosis [...] EDT > was told to refaxed referral , Idania Grant 06/19/2024 02:24:30 PM EDT > info mailed to patient Referral Priority Routine Referral Appointment Date 08/28/2024 MEDICATIONS Medication SIG (Take, Route, Frequency, Duration) Notes Start Date End Date Status Calcium 600/Vitamin D3 600-800 MG-UNIT 1 tablet with a meal Orally twice a day Active Valsartan 80 MG TAKE 1 TABLET BY MOUTH ONCE A DAY for 90 Active Bumetanide 0.5 MG TAKE 1 TABLET BY MOUTH EVERY DAY FOR 30 DAYS Active rOPINIRole HCl 1 MG TAKE 1 TABLET BY MOUTH 1 TO 3 HOURS BEFORE BEDTIME for 90 Active Furosemide 20 MG 1 tablet Orally Once a day for 30 day(s) 05/05/2023 Not-Taking hydroCHLOROthiazide 25 MG 1 tablet in th e morning Orally Once a day for 30 day(s) 05/05/2023 Not-Taking Prolia 60 MG/ML injection Subcutaneous every 6 months Not-Taking Albuterol Sulfate HFA 108 (90 Base) MCG/ACT INHALE 2 PUFFS EVERY 4 HOURS NEEDED for 30 Active Ventolin HFA * 108 (90 Base) MCG/ACT 2 puffs as needed Inhalation every 4 hrs for 30 day(s) 06/23/2018 Not-Taking Nystatin 354045 UNIT/GM 1 application to affected area Externally Twice a day for 14 days 01/19/2018 Not-Taking Ocuflox 0.3 % 1 drop into affected eye Ophthalmic Four times a day for 10 days 10/16/2020 Not-Taking Atorvastatin Calcium 80 MG TAKE 1 TABLET BY MOUTH EVERY DAY Active IMMUNIZATIONS Vaccine Route Administration Date Status Comme nts DECLINED, FLU Unknown 12/03/2013 Administered Shingles IM Intramuscular 01/07/2017 Administered Prevnar 13 IM Intramuscular 01/19/2018 Administered TDaP Unknown 03/22/2018 Administered Fluarix Quadrivalent IM Intramuscular 08/16/2018 Adminsarahbrendan aguirre pt was given the vaccine at [facility] on [facility]. Shingrix IM Intramuscular 01/25/2019 Administered Shingrix IM Intramuscular 05/11/2019 Administered Fluarix Quadrivalent IM Intramuscular 08/16/2019 Adminchrissy aguirre PPSV23 (Pnemovax) IM Intramuscular 08/21/2019 Administered Fluarix Quadrivalent Unknown 07/30/2020 Administered cv s SARS-COV-2 Pfizer Unknown 01/15/2021 Administered SARS-COV-2 Pfizer Unknown 02/05/2021 Administered Influenza High Dose Unknown 07/27/2021 Administered [facility] SARS-COV-2 Pfizer Unknown 10/01/2021 Administered SARS-COV-2 Pfizer Unknown 04/15/2022 Administered Influenza High Dose IM Intramuscular 07/30/2022 Administer ed Influenza High Dose IM Intramuscular 07/04/2023 Administer ed Influenza High Dose IM Intramuscular 07/10/2024 Administer ed Flu Vaccine Unknown 11/04/2014 Refused PPSV23 (Pnemovax) Unknown 11/14/2014 Refused Flu Vaccine Unknown 12/02/2015 Refused Flu Vaccine Unknown 06/21/2016 Refused Fluarix Quadrivalent Unknown 06/20/2018 Refused Fluarix Quadrivalent Unknown 06/23/2018 Refused Tetanus Unknown 03/22/2018 Pending SOCIAL HISTORY Tobacco Use: Social History Observation Description Date Details (start date - stop date) Current Smoker NA - NA Sex Assigned At : Social History Observation Description Sex Assigned At Unknown Tobacco Use/Smoking Question Answer Notes Patient is a current smoker How often do you smoke cigarettes? every day How many cigarettes a day do you smoke? 5 or les s How soon after you wake up d o you smoke your first cigarette? after 60 minutes Are you interested in quitting? Not ready to jessica t Additional Findings: Tobacco User Gloria flynn cigarette smoker, not currently using another form of tobacco Alcohol Screen Question Answer Notes Did you have a drink containing alcohol in the p ast year? No Points 0 Interpretation Negative PROBLEMS Problem Type ICD Code Onset Dates Problem Status W/U Status Risk SNOMED Code Notes Problem Lymphocytosis (D72.820) Active confirmed 71784686 Problem Restless leg syndrom e (G25.81) Active confirmed 08127134 Problem Vitamin D deficiency (E55.9) Active confirmed 47109993 Problem Other ascites (R18.8) Active confirmed Ascites (325974726) Problem Essential hypertensi on (I10) Active confirmed 69433801 Problem Low HDL (under 40) (E78.6) Active confirmed 021476919 Problem Osteoporosis (M81.0) Active confirmed 6 2509336 Problem History of hematuria (Z87.448) Active confirmed 191706123 Problem Current smoker (F17.200) Active confirmed 53314152 Problem Fatty liver (K76.0) Active confirmed 19 8296886 Problem Pure hypercholesterolemia (E78.00) Active confirmed 493969863 Problem Adenomatous rectal polyp (D12.8) Active confirmed 0116403076470 Problem Atherosclerosis of both carotid arteries (I65.23) Active confirmed 802101564735184 Problem Bruit of left caroti d artery (R09.89) Active confirmed 216162898 Problem Bilateral carotid artery disease, 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) Active confirmed 770754590 VITAL SIGNS Blood pressure diastolic 50 mm Hg 05/07/2024 bradley ght is down 2 pounds since 10-31-23 Height 59.50 in 05/07/2024 weight is down 2 pounds since 10-31-23 Blood pressure systolic 138 mm Hg 05/07/2024 weig ht is down 2 pounds since 10-31-23 Weight 152 lbs 05/07/2024 weight is down 2 pounds since 10-31-23 BMI 30.18 kg/m2 05/07/2024 weight is down 2 pounds since 10-31-23 Encounters Encounter Location Date Provider Diagnosis Avery Collier MD [address] [place] [id number] 05/07/2024 Avery Collier Pure hypercholestero lemia E78.00 ; Annual physical exam Z00.00 ; History of hematuria Z87.448 ; Bilateral carotid artery disease, unspecified type I77.9 ; Abnormal pelvic exam Z01.411 ; Essential hypertension I10 ; Colon cancer screening Z12.11 and Depression screening Z13.31 Avery Collier MD [address] [place] [id number] 04/30/2024 Avery Collier Blood tests for rout ine general physical examination Z00.00 ; Pure hypercholesterolemia E78.00 ; Lymphocytosis D72.820 ; Essential hypertension I10 and Vitamin D deficiency E55.9 Avery Collier MD [address] [place] [address] Drive [address] [place] [id number] 07/10/2024 Avery Collier Encounter for immuni zation Z23 Avery Collier MD [address] [place] [id number] 10/31/2023 Avery Collier Current smoker F17.2 00 and Essential hypertension I10 Avery Collier MD [address] [place] [id number] 05/24/2024 Avery Collier MD [address] [place] [address] [id number] 06/07/2024 Avery Collier ASSESSMENTS Encounter Date Diagnosis Assessment Notes Treatment Notes Treatment Clinical Notes 05/07/2024 Annual physical exam (ICD-10 - Z00.00) labs reviewed and discussed with patient 05/07/2024 Pure hypercholestero lemia (ICD-10 - E78.00) not high enough to treat, will continue to monitor 04/30/[address] ine general physical examination (ICD-10 - Z00.00) 07/10/2024 Encounter for immuni zation (ICD-10 - Z23) 10/31/2023 Essential hypertensi on (ICD-10 - I10) is a little high today. will observe 10/31/2023 Current smoker (ICD- 10 - F17.200) not interested in quititing 05/07/2024 History of hematuria (ICD-10 - Z87.448) has been evaluated 04/30/2024 Pure hypercholestero lemia (ICD-10 - E78.00) 05/07/2024 Bilateral carotid ar jayda disease, unspecified type (ICD-10 - I77.9) repeat us in jun/ THE ORDER HAS BEEN PLACED IN FUTURE FOLDER 04/30/2024 Lymphocytosis (ICD-1 0 - D72.820) 05/07/2024 Abnormal pelvic exam (ICD-10 - Z01.411) referral to dr mosley/ REFERRAL MADE TO DR MOSLEY @ [facility] 04/30/2024 Essential hypertensi on (ICD-10 - I10) 05/07/2024 Essential hypertensi on (ICD-10 - I10) stable, will continue current regiment 04/30/2024 Vitamin D deficiency (ICD-10 - E55.9) 05/07/2024 Colon cancer screeni ng (ICD-10 - Z12.11) guaiac negative 05/07/2024 Depression screening (ICD-10 - Z13.31) negative screen PLAN OF TREATMENT Pending Test Test Name Order Date Electrocardiogram (EKG) 08/05/2011 Electrocardiogram (EKG) 01/19/2018 CT chest wo con 07/04/2023 XR DEXA axial skeleton 04/27/2022 US abdomen complete 05/05/2023 US carotid duplex BI 05/05/2023 US carotid duplex BI 06/21/2023 US carotid duplex BI 05/07/2024 US CAROTID BILATERAL DOPPLER 05/27/2023 Next Appt Details Provider Name:Avery bucio, 11/09/2024 07:00:00 AM, [address] [place] [address], [address], [place], [place], [phone], Provider Name:Avery bucio, 11/15/2024 07:30:00 AM, [address] [place] [address] Drive, [address], [place], [place], [phone], Provider Name:Avery bucio, 05/02/2025 07:30:00 AM, [address] [place] [address], [address], [place], [place], [phone], Provider Name:Avery bucio, 05/09/2025 08:00:00 AM, [address] [place] [address] Drive, [address], [place], [place], [phone], Insurance Providers Payer Name Payer Address Payer Phone Subscriber Number Group Number Insured Name Patient Relationship to Insured Coverage Start Date Coverage End Date [employer] [address] [place], [place] [id number] RaminStephana Self - patient is the insured MEDICAL (GENERAL) HISTORY Medical History History ICD Code Refuses flu shot (08/29/12) hematuria work up in 2011 cysto and ultr asound colonoscopy 2007; 04/05/13 - repeat 3 yrs; Colonoscopy done 07/08/16 w/Dr. Pacheco - repeat 5 yrs: Colonoscopy repeat 5yr pap smear - 11/09/2013 Cataract, unspecified cataract type, uns pecified laterality H26.9 Cataract, unspecified cataract type, uns pecified laterality
== END 2024-09-13 14:50 | disposition home or self-care (01) ==
PROVIDERS: PCP Internal Medicine; Visit Provider Surgery Vascular Surgery
DX: I65.23 Occlusion and stenosis of bilateral carotid arteries (principal)
CPT/HCPCS: 99203

== ENCOUNTER → 2024-09-13 14:15 | Outpatient (BNVA) | payer BC, SELFPAY | PROVIDERS: PCP Internal Medicine; Visit Provider Surgery Vascular Surgery ==

== ENCOUNTER 2024-10-18 08:43 | Outpatient (AMB) | payer BC, SELFPAY ==
--- NOTE | 2024-10-18 08:45 | MHC.OFFVIS ---
Intake Visit Reasons: Ultrasound results Horticultural Technical Officer: Horticultural Technical Officer Present (Filomena) Accompanied by: Self / Same As Patient Allergies Sulfa (Sulfonamide Antibiotics) [SULFA (SULFONAMIDE ANTIBIOTICS)] Allergy (Intermediate, Verified 10/18/24 08:46) RASH HPI Comments Details: Presenting for follow-up regarding fullness on her pelvic exam. The patient is doing well. Pelvic ultrasound showed the following: UTERUS: The uterus is anteverted. Size: 7.2 x 2.4 x 3.1 cm. Uterine mass: Intramural uterine mass likely fibroid 1 x 0.9 x 0.8 cm. Cervix: Grossly unremarkable. Endometrium: No ultrasound evidence of endometrial lesion. endometrial thickness measures 0.3 cm ADNEXA: Normal Right ovary: Normal in size. Left ovary: Not visualized might be atrophic or obscured by bowel gas. Doppler exam: Normal Doppler flow identified in both ovaries. FREE FLUID: Trace amount of free fluid. OTHER FINDINGS: None PFSH Medical History Hypertension Hyperlipidemia Impaired fasting glucose Osteoporosis (~2013) Nicotine dependence, cigarettes, uncomplicated Vitamin D deficiency Tubular adenoma of colon (~2007) Obesity (BMI 30-39.9) COVID-19 vaccine series completed Surgical History Hx of cataract surgery History of laryngoscopy History of breast biopsy History of colonoscopy Hx of wisdom tooth extraction Family History Father No problems noted. Mother CVD (cardiovascular disease) Social History Household Members: Spouse Household Members Other:: Housing Other:: mobile home Are you a primary director of managed care to a significant other at home: No Do you presently have visiting nurse or other home services: No Alcohol intake: never Patient Tobacco Use Status: Current everyday Tobacco user Tobacco use type: Cigarette Cigarettes Per Day: 6 Years Smoked: 25+ Review of Systems Const All systems reviewed & are unremarkable except as noted in HPI and below Reports as per HPI and Reports no additional complaints GI Reports no additional complaints Reports no additional complaints Assessment & Plan Assessment & Plan (1) Uterine myoma: Code(s): D25.9 - Leiomyoma of uterus, unspecified Category: Medical Plan: Discussed with the patient the findings on pelvic ultrasound & the risk of myosarcoma; discussed with the patient the options of treatment including expectant management versus hysterectomy; the pros and cons, risks benefits of each approach were discussed with the patient including the fact that in cases of myosarcoma, surgical treatment can lead to early diagnosis and positively affects the prognosis; after further discussion, the patient decided to proceed with expectant management. Will repeat pelvic ultrasound periodically. Instructions given to patient to call in case any of the following occurs: pressure symptoms, abnormal uterine bleeding, pelvic pain; and to schedule a six-months pelvic ultrasound (order placed) and a follow-up appointment . All questions answered, the patient verbalized understanding and agreed with the plan . Orders: Orders US pelvic and transvaginal 6 Months D25.9 - Leiomyoma of uterus, unspecified Coding Level of Care Code Est Pt Level 3 (55786) Diagnoses Uterine myoma D25.9
--- OUTSIDE RECORDS SUMMARY | 2024-10-18 08:58 | XMS_ITS ---
Author Organization Avery Collier MD Address [address] [place] [phone] Care Team Providers Care Lead Housekeeper Name Role Phone Avery Collier Primary Care Provider REASON FOR VISIT Carotid US due Encounters Encounter Location Date Provider Diagnosis Avery Collier MD [address] [place] [address] [place] [phone] 05/24/2024 Avery Collier PLAN OF TREATMENT Next Appt Details Provider Name:Avery bucio, 11/09/2024 07:00:00 AM, [address] [place] [address], [address], [phone], Provider Name:Avery bucio, 11/15/2024 07:30:00 AM, [address] [place] [address], [place] [address], [place], [place], [phone], Provider Name:Avery bucio, 05/02/2025 07:30:00 AM, [address], [address], [place], [phone], Provider Name:Avery bucio, 05/09/2025 08:00:00 AM, [address], [address], [place], [phone],
--- OUTSIDE RECORDS SUMMARY | 2024-10-18 08:58 | XMS_ITS ---
Author Organization Avery Collier MD Address [address] [place], [place] [phone] Care Team Providers Care Certified Pharmacy Tech Name Role Phone Avery Collier Primary Care Provider REASON FOR REFERRAL Reason bilateral carotid ar [...] Location Date Provider Diagnosis Avery Collier MD [address] [place] [address] [address] [place], [place] [phone] 06/07/2024 Avery Collier PLAN OF TREATMENT Referrals Referral Date Details 08/28/2024 08/28/2024, bilatera l carotid artery disease , CHAYO AVITIA Next Appt Details Provider Name:Avery Otto ier, 11/09/2024 07:00:00 AM, [address] [place] [address], [address], [place], [place], [phone], Provider Name:Avery bucio, 11/15/2024 07:30:00 AM, [address] [place] [address], [address], [place], [place], [phone], Provider Name:Avery bucio, 05/02/2025 07:30:00 AM, [address] [place] [address], [address], [place], [place], [phone], Provider Name:Avery ulisr, 05/09/2025 08:00:00 AM, [address] [place] [address], [address], [place], [place], [phone], Consultation Request Notes Referral Date Referring Provider Referred Provider Not es 06/12/2024 Avery Collier SANDIP bilateral c arotid artery disease
--- OUTSIDE RECORDS SUMMARY | 2024-10-18 08:59 | XMS_ITS | Patient Health Record ---
Author Organization Avery Collier MD Address [address] [place], [place] [phone] Care Team Providers Care Meat Stuffer Name Role Phone Avery Collier Primary Care Provider ALLERGIES Allergen (clinical drug ingredient) Drug/Non Drug Allergy documented on EMR Reaction Allergy Type Onset Date Status Medicinal product containing thiazide and acting as diuretic agent (product) Thiazide-Type Diuretics Unknown Drug Allergy Active sulfamethoxazole / trimethoprim bactrim (uncoded) rash Allergy Active RESULTS Component Value Reference Range Notes Urine Culture Reviewed date:05/01/2024 12:33:29 PM Interpretation: Performing Lab:[facility], [address] [place] [place] [phone] Notes/Report: Urine Culture Report Result Urine Culture > 100,000 cfu/ml Urine Culture Mixed bacterial ashleigh a characteristic of Urine Culture urogenital contamination. Complete Blood Count Auto Di ff Reviewed date:04/30/2024 05:38:51 PM Interpretation: Performing Lab:[facility], [address] [place] [phone] Notes/Report: White Blood Count 9.1 4.8-10.8 X10*3/uL [...] NRBC Abs Auto 0.000 0.0-0.012 X10*3/uL Comprehensive Ashton. Panel Fa st Reviewed date:04/30/2024 01:20:33 PM Interpretation: Performing Lab:[facility], [address] [place] [phone] Notes/Report: Sodium 142 135-145 mmol/L Potassium 4.6 3.3-5.1 mmol/L Chloride 109 96-108 mmol/L Carbon Dioxide 22 22-29 mmol/L Anion Gap 16 12-20 Blood Urea Nitrogen 12 9-16 mg/dL Creatinine 0.92 0.5-1.4 mg/dL Estimated Glomerular Filt Rate > 60 NOTE: For -[place] individuals, multiply the result by 1.210. Chronic [...] Panel Reviewed date:04/30/2024 12:36:51 PM Interpretation: Performing Lab:[facility], [address] [place] [phone] Notes/Report: Triglycerides 221 <150 mg/dL Desirable Triglyceride: [...] Total Reviewed date:04/30/2024 12:37:26 PM Interpretation: Performing Lab:[facility], [address] [place] [phone] Notes/Report: Vitamin D 25-OH Total 67.7 >30 [...] t Reviewed date:04/30/2024 05:39:12 PM Interpretation: Performing Lab:[facility], [address] [place] [phone] Notes/Report: Urine, Clean Catch Color Urine Yellow Appearance Urine Cloudy PH 5.5 5.0-9.0 Glucose Urine UA Negative Negative mg/dL Urine Blood Small (1+) Negative Specific [place] - Urine 1.015 1.005-1.025 Urine Protein Negative [...] patient to call office Performing Lab: Notes/Report: [facility] [place] [address] Ultrasound Report Signed Patient: Sandra Faustin MR#: [id number] : 1955 Acct:[id number] Age/Sex: 68 / F ADM Date: 06/06/24 Loc: HO.HMGCX Attending Dr: Avery Collier MD Ordering Physician: Avery Collier MD Date of Service: 06/06/24 Procedure(s): US carotid duplex BI Accession Number(s): [id number] cc: Avery Collier MD EXAMINATION: US EXTRACRANIAL CAROTID DUPLEX, [...] 06/06/24 1328 DD/ 1042 TD/TT: 06/06/24 1102 Sales Process Manager: ASHWINI ZELAYA tomosynthesis screening B I Reviewed date:08/02/2024 05:29:45 PM Interpretation: Performing Lab: Notes/Report: [place] [facility] [address] [place], [place] [address] Mammography Report Signed with Ashley Patient: Sandra Faustin MR#: [id number] : 1955 Acct:[id number] Age/Sex: 68 / F ADM Date: 06/27/24 Loc: HO.MAMMO Attending Dr: Avery Collier MD Ordering Physician: Avery Collier MD Results: 0In complete: Needs Additional Imaging Evaluation Date of Service: 06/27/24 Follow Up: Additional Imagi ng Procedure(s): MM tomosynthesis screening BI Accession Number(s): [id number] cc: Avery Collier MD ADDENDUM ADDENDUM #1 [...] 06/27/24 1322 DD/ 0800 TD/TT: 06/27/24 0818 Sales Process Manager: US pelvic and transvaginal Reviewed date:08/23/2024 08:35:25 AM Interpretation: Performing Lab: Notes/Report: [address] [address] Ultrasound Report Signed Patient: Sandra Faustin MR#: [id number] : 1955 Acct:[id number] Age/Sex: 68 / F ADM Date: 07/12/24 Loc: HO.US Attending Dr: Rory Mosley MD Ordering Physician: Rory Mosley MD Date of Service: 07/12/24 Procedure(s): US pelvic and transvaginal Accession Number(s): [id number] cc: Avery Collier MD; Rory Mosley MD [...] by: Lulú Sheehan MD 08/23/2024 08:01 AM [facility] Dictated By: Lulú Sheehan MD Signed By: <Electronically signed by Lulú Sheehan MD in OV> 08/23/24 0801 DD/ 1047 TD/TT: 07/12/24 1057 Sales Process Manager: MM tomosynthesis added views L Reviewed date:08/02/2024 05:23:09 PM Interpretation: Performing Lab: Notes/Report: [facility] [address] [place] [address] [place] [address] Mammography Report Signed Patient: Sandra Faustin MR#: [id number] : 1955 Acct:[id number] Age/Sex: 68 / F ADM Date: 08/02/24 Loc: HO.MAMMO Attending Dr: Avery Collier MD Ordering Physician: Avery Collier MD Results: 2Be nign Findings Date of Service: 08/02/24 Follow Up: 1 Year From Orig ina Mammogram Procedure(s): MM tomosynthesis added views L Accession Number(s): [id number] cc: Avery Collier MD EXAMINATION: MM DIAGNOSTIC [...] 08/02/24 1404 DD/ 1330 TD/TT: 08/02/24 1340 Sales Process Manager: CT lung screening Reviewed date:09/28/2024 04:40:06 PM Interpretation: Performing Lab: Notes/Report: [address] [address] [address] Scan Report Signed Patient: Sandra Faustin MR#: [id number] : 1955 Acct:[id number] Age/Sex: 68 / F ADM Date: 08/14/24 Loc: HO.CT Attending Dr: Uyen Leslie PA-C Ordering Physician: Uyen Leslie PA-C Date of Service: 08/14/24 Procedure(s): CT lung screening Accession Number(s): [id number] cc: Avery Collier MD; Uyen Leslie PA-C EXAMINATION: CT LOW-DOSE SCREENING CHEST WITHOUT CONTRAST CLINICAL INFORMATION: Nicotine dependence, cigarettes, uncomplicated. The patient is a current smoker with a 25 pack-year history of smoking. COMPARISON: CT chest August 08, 2023. TECHNIQUE: Multidetector volumetric CT imaging of the chest is performed on a Siemens SOMATOM Definition scanner without contrast using low dose technique. Additional 2D coronal and sagittal reformatted images and axial 3D maximum intensity projection (MIP) images are generated on the CT workstation. This CT examination was performed using dose optimization techniques as appropriate, variously including the following: *Automated exposure control *Adjustment of mA and/or kV according to patient size (this includes techniques or standardized protocols for targeted exams where dose is matched to indication/reason for exam; i.e. extremities or head) *Use of iterative reconstruction technique TOTAL EXAM DLP: 41 mGy-cm. CTDIvol: 1.31 mGy. FINDINGS: PULMONARY NODULES: Calcified granuloma present in the left lower lobe. There is a 3 mm nodule seen in the right lower lobe and as ago esophageal recess (5:206). Lingular scarring/atelectasis is present. There is no new, increasing sized or suspicious nodules seen. LUNGS: Lungs bilaterally symmetrically expanded. There is mild emphysema and bronchial thickening without bronchiectasis.. No effusion or pneumothorax. Central airways patent. MEDIASTINUM: No mediastinal, hilar or axillary adenopathy or free fluid collection. CORONARY ARTERY CALCIFICATION: None visualized on this study. THYROID GLAND: Unremarkable to the extent seen. CARDIOVASCULAR STRUCTURES: Aortic and heart size normal. No pericardial effusion. CHEST WALL/AXILLA: Unremarkable. UPPER ABDOMEN: Included portions of the solid organs in the upper abdomen unremarkable on noncontrast imaging. OSSEOUS STRUCTURES: No suspicious focal findings. CT/CT lung screening IMPRESSION: No evidence of pulmonary malignancy. ASSESSMENT: 1. Lung-RADS Category 2: Benign appearance or behavior of nodules. N/A 2. Lung-RADS Category S: Negative. There are no clinically significant or potentially clinically significant findings not related to the lungs requiring urgent additional evaluation. RECOMMENDATION: Continued routine annual low-dose CT lung screening in 1 year is recommended. An order for CT CHEST LOW DOSE CANCER SCREENING ([id number]) can be placed. Electronically signed by: Roberto Beasley MD 09/27/2024 10:02 PM [facility] Dictated By: Roberto Beasley MD Signed By: <Electronically signed by Roberto Beasley MD in OV> 09/27/242201 DD/ TD/TT: 08/14/24 0930 Sales Process Manager: LESTER REASON FOR REFERRAL Reason ABNORMAL PELVIC EXAM [...] hrs for 30 day(s) 06/23/2018 Not-Taking Nystatin 976515 UNIT/GM 1 application to affected area Externally [...] 03/22/2018 Administered Fluarix Quadrivalent IM Intramuscular 08/16/2018 Adminchrissy aguirre pt was given the vaccine at [facility] on [facility]. Shingrix IM Intramuscular 01/25/2019 Administered Shingrix IM [...] to jessica t Additional Findings: Tobacco User Curren t cigarette smoker, not currently using another form of tobacco Alcohol Screen Question Answer Notes Did you have a drink containing alcohol in the p ast year? No Points 0 Interpretation Negative PROBLEMS Problem Type ICD Code Onset Dates Problem Status W/U Status Risk SNOMED Code Notes Problem Lymphocytosis (D72.820) Active confirmed 31732379 Problem Restless leg syndrom e (G25.81) Active confirmed 40239560 Problem Vitamin D deficiency (E55.9) Active confirmed 94395077 Problem Other ascites (R18.8) Active confirmed Ascites (371237882) Problem Essential hypertensi on (I10) Active confirmed 52143517 Problem Low HDL (under 40) (E78.6) Active confirmed 642643834 Problem Osteoporosis (M81.0) Active confirmed 6 7677532 Problem History of hematuria (Z87.448) Active confirmed 373507013 Problem Current smoker (F17.200) Active confirmed 43197113 Problem Fatty liver (K76.0) Active confirmed 19 0204531 Problem Pure hypercholesterolemia (E78.00) Active confirmed 856427358 Problem Adenomatous rectal polyp (D12.8) Active confirmed 3508124646545 Problem Atherosclerosis of both carotid arteries (I65.23) Active confirmed 073331117906794 Problem Bruit of left caroti d artery (R09.89) Active confirmed 632932480 Problem Bilateral carotid artery disease, 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) Active confirmed 337076275 VITAL SIGNS Blood pressure diastolic 50 mm [...] Avery Collier MD [address] [place] [id number] 05/07/2024 Avery Collier Pure hypercholestero lemia E78.00 ; Annual physical exam Z00.00 ; History of hematuria Z87.448 ; Bilateral carotid artery disease, unspecified type I77.9 ; Abnormal pelvic exam Z01.411 ; Essential hypertension I10 ; Colon cancer screening Z12.11 and Depression screening Z13.31 Avery Collier MD [address] [place] [id number] 04/30/2024 Avery Collier Blood tests for rout ine general physical examination Z00.00 ; Pure hypercholesterolemia E78.00 ; Lymphocytosis D72.820 ; Essential hypertension I10 and Vitamin D deficiency E55.9 Avery Collier MD [address] [place] [id number] 07/10/2024 Avery Collier Encounter for immuni zation Z23 Avery Collier MD [address] [place] [phone] 10/31/2023 Avery Collier Current smoker F17.2 00 and Essential hypertension I10 Avery Collier MD [address] [place], [place] [phone] 05/24/2024 Avery Collier MD [address] [place] [id number] 06/07/2024 Avery Collier ASSESSMENTS Encounter Date Diagnosis [...] mosley/ REFERRAL MADE TO DR MOSLEY @ [facility] [employer] 04/30/2024 Essential hypertensi on (ICD-10 - I10) [...] abdomen complete 05/05/2023 US carotid duplex BI 06/21/2023 US carotid duplex BI 05/07/2024 US carotid duplex BI 05/05/2023 US CAROTID BILATERAL DOPPLER 05/27/2023 Next Appt Details Provider Name:Avery Otto ier, 11/09/2024 07:00:00 AM, [address], [address], [place], [place], [phone], Provider Name:Avery Otto ier, 11/15/2024 07:30:00 AM, [address], [address], [place], [place], [phone], Provider Name:Avery Otto ier, 05/02/2025 07:30:00 AM, [address] [place] [address] Drive, [address], [place], [place], [phone], Provider Name:Avery Otto ier, 05/09/2025 08:00:00 AM, [address] [place] [address] Drive, [address], [place], [place], [phone], Insurance Providers Payer Name Payer Address Payer Phone Subscriber Number Group Number Insured Name Patient Relationship to Insured Coverage Start Date Coverage End Date [employer] [address] [place], [place] [id number] [place] Self - patient is the insured MEDICAL [...]
--- OUTSIDE RECORDS SUMMARY | 2024-10-18 08:59 | XMS_ITS | Patient Health Record ---
Author Organization [facility] Address [address] [place] [address] Care Team Providers Care Display Artist Name Role Phone Avery Collier MD Primary Care Provider Calderon Hu [phone] ALLERGIES Allergen (clinical drug ingredient) Drug/Non Drug [...] malignant neoplasm of colon (Z12.11) Active confirmed 611365173 Problem History of adenomatous polyp of colon (Z86.010) Active confirmed 379691995 Problem Encounter for screening for malignant neoplasm of rectum (Z12.12) Active confirmed Screening fo r malignant neoplasm of rectum (385310895) Problem Preprocedural examination (Z01.818) Active confirmed 09615673 Problem Hx of adenomatous colonic polyps (Z86.010) Active confirmed 624227842 Problem Diverticulosis of colon (K57.30) Active confirmed Diverticulosi s of colon (829166837) PLAN OF TREATMENT Future Test Test Name Order Date COLONOSCOPY 03/24/2016 COLONOSCOPY 09/22/2021 Insurance Providers Payer Name Payer Address Payer Phone Subscriber Number Group Number Insured Name Patient Relationship to Insured Coverage Start Date Coverage End Date [facility] [address] [place] [address] [id number] SIVA HUFFMAN Self - patient is the insured MEDICAL (GENERAL) HISTORY Medical History History ICD Code Screening colonoscopy 02-29-2008- small tubular adenomas removed Denies [place],DM,CVA,Lung disease,renal dise ase Hyperlipidemia Colonoscopy in 03/2013--great er than 1 cm flat tubular adenoma removed from the transverse colon High blood pressure Osteoporosis Negative colonoscopy in 06/2016 Surgical History Surgery Date(Month/Year) Surgery of the right breast for benign d isease
== END 2024-10-18 09:35 | disposition home or self-care (01) ==
LOC: HO.HWS 08:43
PROVIDERS: PCP Internal Medicine; Visit Provider Obstetrics & Gynecology
DX: D25.9 Leiomyoma of uterus, unspecified (principal)
CPT/HCPCS: 99213

== ENCOUNTER 2024-11-09 06:19 | Outpatient (REF) | payer BC, SELFPAY ==
[2024-11-09 11:22] LABS: Alanine Aminotransferase 57 U/L (0-31); Albumin Level 4.3 g/dL (3.5-5.0); Alkaline Phosphatase 101 U/L (39-117); Aspartate Amino Transferase 46 U/L (5-31); Bilirubin Direct 0.3 mg/dL (0.0-0.5); Bilirubin Total 0.8 mg/dL (0.0-1.0); Cholesterol 159 mg/dL (<200); HDL Cholesterol 37 mg/dL (>40); LDL Cholesterol Calculated 88 mg/dL (<100); Total Protein 7.4 g/dL (6.5-8.0); Triglycerides 174 mg/dL (<150)
[2024-11-09 13:50] LABS: Reflex LDLD? No
== END 2024-11-09 06:20 | disposition home or self-care (01) ==
LOC: HO.HMGCLDS 06:19
PROVIDERS: PCP Internal Medicine; Visit Provider Internal Medicine
DX: E78.00 Pure hypercholesterolemia, unspecified (principal)
CPT/HCPCS: 36415; 80061; 80076

== ENCOUNTER 2025-02-08 06:13 | Outpatient (REF) | payer BC, SELFPAY ==
[2025-02-08 10:31] LABS: Alanine Aminotransferase 47 U/L (0-31); Albumin Level 4.2 g/dL (3.5-5.0); Alkaline Phosphatase 96 U/L (39-117); Aspartate Amino Transferase 42 U/L (5-31); Bilirubin Direct 0.1 mg/dL (0.0-0.5); Bilirubin Total 0.3 mg/dL (0.0-1.0); Cholesterol 228 mg/dL (<200); HDL Cholesterol 37 mg/dL (>40); LDL Cholesterol Calculated 148 mg/dL (<100); Triglycerides 216 mg/dL (<150)
[2025-02-08 11:11] LABS: Reflex LDLD? No
== END 2025-02-08 06:14 | disposition home or self-care (01) ==
LOC: HO.HMGCLDS 06:13
PROVIDERS: PCP Internal Medicine; Visit Provider Internal Medicine
DX: E78.00 Pure hypercholesterolemia, unspecified (principal)
CPT/HCPCS: 36415; 80061; 80076

== ENCOUNTER 2025-04-17 12:46 | Outpatient (REF) | payer BC, SELFPAY ==
--- OUTSIDE RECORDS SUMMARY | 2024-11-15 03:30 | XMS_ITS ---
Author Organization Avery Collier MD Address [address] [place], [place] [address] Care Team Providers Care Bottle Booth Attendant Name Role Phone Avery Collier Primary Care Provider Allergies Allergen (clinical drug ingredient) Drug/Non Drug Allergy documented on EMR Reaction Allergy Type Onset Date Status Medicinal product containing thiazide and acting as diuretic agent (product) Thiazide-Type Diuretics Unknown Drug Allergy Active sulfamethoxazole / trimethoprim bactrim (uncoded) rash Allergy Active REASON FOR VISIT 6 MO F/U Medications Medication SIG (Take, Route, Frequency, Duration) Notes Start Date End Date Status Ocuflox 0.3 % 1 drop into affected eye Ophthalmic Four times a day for 10 days 10/16/2020 Not-Taking Nystatin 947270 UNIT/GM 1 application to affected area Externally Twice a day for 14 days 01/19/2018 Not-Taking Ventolin HFA * 108 (90 Base) MCG/ACT 2 puffs as needed Inhalation every 4 hrs for 30 day(s) 06/23/2018 Not-Taking Prolia 60 MG/ML injection Subcutaneous every 6 months Not-Taking Furosemide 20 MG 1 tablet Orally Once a day for 30 day(s) 05/05/2023 Not-Taking hydroCHLOROthiazide 25 MG 1 tablet in th e morning Orally Once a day for 30 day(s) 05/05/2023 Not-Taking rOPINIRole HCl 1 MG TAKE 1 TABLET BY MOUTH 1 TO 3 HOURS BEFORE BEDTIME for 90 Active Albuterol Sulfate HFA 108 (90 Base) MCG/ACT INHALE 2 PUFFS EVERY 4 HOURS NEEDED for 30 Active Bumetanide 0.5 MG TAKE 1 TABLET BY MOUTH EVERY DAY FOR 30 DAYS Active Valsartan 80 MG TAKE 1 TABLET BY MOUTH ONCE A DAY for 90 Active Calcium 600/Vitamin D3 600-800 MG-UNIT 1 tablet with a meal Orally twice a day Active Atorvastatin Calcium 80 MG TAKE 1 TABLET BY MOUTH EVERY DAY Active Vital Signs Blood pressure systolic 124 mm Hg 11/15/19 25 Blood pressure diastolic 76 mm Hg 025 Height 59.50 in 11/15/2024 Weight 162 lbs 11/15/2024 BMI 32.17 kg/m2 11/15/2024 weight is up 10 pounds since 05-07-24 Encounters Encounter Location Date Provider Diagnosis Avery Collier MD [address] [place] [address] [place] [phone] 11/15/2024 Avery Collier Pure hypercholestero lemia E78.00 ; Elevated LFTs R79.89 and Cigarette smoker F17.210 Assessments Encounter Date Diagnosis (ICD Code) Assessment Notes Treatment Notes Treatment Clinical Notes Section Notes 11/15/2024 Pure hypercholesterolemia (ICD-10 - E78.00) at goal, will continue current regiment.... pending labs 11/15/2024 Elevated LFTs (ICD-1 0 - R79.89) is related to her weight gain and statins. will repeat in 3 months 11/15/2024 Cigarette smoker (IC D-10 - F17.210) is going for screening yearly, not willing to quit Plan Of Treatment Treatment Notes Assessment Notes Pure hypercholesterolemia at goal, will continue current regiment....pending labs Elevated LFTs is related to her we ight gain and statins. will repeat in 3 months Cigarette smoker is going for screeni ng yearly, not willing to quit Next Appt Details Provider Name:Avery Otto ier, 05/02/2025 07:30:00 AM, [address], [address], [place], [phone], Provider Name:Avery Otto ier, 05/09/2025 08:00:00 AM, [address], [address], [place], [phone], Progress Notes * Sandra FAUSTIN JDOB:1955 (69 yo F)Acc No.[id number]:11/15/2024 Progress Notes Patient: Sandra IVAN Provider: Jaun Collier MD :1955 A ge:69 Y S ex:Female Date:11/15/2024 Address:[address] [place] [address], [facility] , [facility] Subjective: * Chief Complaints: * 6 MO F/U * HPI: S ymptom(s): patient is a 69 yo female here for 6 month follow up visit. is gaining weight. * ROS: G eneral/Constitutional: Denies C hills. D enies F atigue. D enies F ever. D enies H eadache. E NT: Patient denies d ecreased sense of smell, any loss of taste, sore throat. D enies S ore throat. R espiratory: Denies C ough. D enies S hortness of breath at rest. D enies S hortness of breath with exertion. G astrointestinal: Denies D iarrhea. D enies N ausea. M usculoskeletal: Patient denies m uscle aches. P eripheral Vascular: Patient denies r ed and blue toes. * Medical History: * Surgical History: * Hospitalization/Major Diagno stic Procedure: * Medications: T akingAtorvastatin Calcium 80 MG Tablet TAKE 1 TABLET BY MOUTH EVERY DAY Calcium 600/Vitamin D3 600-800 MG-UNIT Tablet 1 tablet with a meal Orally twice a day Bumetanide 0.5 MG Tablet TAKE 1 TABLET BY MOUTH EVERY DAY FOR 30 DAYS Valsartan 80 MG Tablet TAKE 1 TABLET BY MOUTH ONCE A DAY rOPINIRole HCl 1 MG Tablet TAKE 1 TABLET BY MOUTH 1 TO 3 HOURS BEFORE BEDTIME Albuterol Sulfate HFA 108 (90 Base) MCG/ACT Aerosol Solution INHALE 2 PUFFS EVERY 4 HOURS NEEDED Taking Atorvastatin Calcium 80 MG Tablet TAKE 1 TABLET BY MOUTH EVERY DAY Taking Calcium 600/Vitamin D3 600-800 MG-UNIT Tablet 1 tablet with a meal Orally twice a day Taking Bumetanide 0.5 MG Tablet TAKE 1 TABLET BY MOUTH EVERY DAY FOR 30 DAYS Taking Valsartan 80 MG Tablet TAKE 1 TABLET BY MOUTH ONCE A DAY Taking rOPINIRole HCl 1 MG Tablet TAKE 1 TABLET BY MOUTH 1 TO 3 HOURS BEFORE BEDTIME Taking Albuterol Sulfate HFA 108 (90 Base) MCG/ACT Aerosol Solution INHALE 2 PUFFS EVERY 4 HOURS NEEDED Not- Taking/PRNhydroCHLOROthiazide 25 MG Tablet 1 tablet in the morning Orally Once a day Furosemide 20 MG Tablet 1 tablet Orally Once a day Ventolin HFA * 108 (90 Base) MCG/ACT Aerosol Solution 2 puffs as needed Inhalation every 4 hrs Prolia 60 MG/ML Solution injection Subcutaneous every 6 months Ocuflox 0.3 % Solution 1 drop into affected eye Ophthalmic Four times a day Nystatin 344220 UNIT/GM Cream 1 application to affected area Externally Twice a day Medication List reviewed and reconciled with the patientNot-Taking/PRN hydroCHLOROthiazide 25 MG Tablet 1 tablet in the morning Orally Once a day Not-Taking/PRN Furosemide 20 MG Tablet 1 tablet Orally Once a day Not-Taking/PRN Ventolin HFA * 108 (90 Base) MCG/ACT Aerosol Solution 2 puffs as needed Inhalation every 4 hrs Not-Taking/PRN Prolia 60 MG/ML Solution injection Subcutaneous every 6 months Not-Taking/PRN Ocuflox 0.3 % Solution 1 drop into affected eye Ophthalmic Four times a day Not-Taking/PRN Nystatin 611290 UNIT/GM Cream 1 application to affected area Externally Twice a day Medication List reviewed and reconciled with the patient * Allergies: b actrim: rashThiazide-Type Diureticsyes[Allergies Verified] Objective: * Vitals: H t: 59.50, Wt: 162, BMI:32.17, BP:124/76, Wt-k.48. weight is up 10 pounds since 05-07-24. * P ast Orders: L ab:Liver Panel (Order Date - 11/09/2024) (Collection Date & Time - 11/09/2024 06:35 AM) Value Reference Range Bilirubin Total 0.8 0.0-1.0 - mg/dL Bilirubin Direct 0.3 0.0-0.5 - mg/dL Aspartate Amino Transferase 46 H 5-31 - U/L Alanine Aminotransferase 57 H 0-31 - U/L Total Protein 7.4 6.5-8.0 - g/dL Albumin Level 4.3 3.5-5.0 - g/dL Alkaline Phosphatase 101 39-117 - U/L L ab:Lipid Panel with Reflex (Order Date - 11/09/2024) (Collection Date & Time - 11/09/2024 06:35 AM) Value Reference Range Triglycerides 174 H <150 - mg/dL Cholesterol 159 <200 - mg/dL LDL Cholesterol Calculated 88 <100 - mg/dL HDL Cholesterol 37 L >40 - mg/dL * Examination: G eneral Examination: GENERAL APPEARANCE: a lert, well hydrated, in no distress.? EYES: e xtraocular movement full and smooth. SKIN: g ood turgor. HEART: n o murmurs, rubs, gallops, regular rate and rhythm.? LUNGS: c lear to auscultation bilaterally, good air movement. ABDOMEN: s oft, nontender, nondistended, no hepatosplenomegaly. Assessment: * Assessment: 1. P ure hypercholesterolemia - E78.00 (Primary) 2 . E levated LFTs - R79.89 3 . C igarette smoker - F17.210 Plan: * Treatment: 2. E levated LFTs Notes: is related to her weight gain and statins. will repeat in 3 months 3. C igarette smoker Notes: is going for screening yearly, not willing to quit * Procedure Codes: * Preventive Medicine: Counseling: S moking P atient counseled on the dangers of tobacco use and urged to quit. 0 11/15/2024, P atient Lifestyle Goals P atient does not want to quit, E xpected Outcome a chieving sustained abstinence from cigarettes, significantly reducing the risk of smoking-related diseases like lung cancer, heart disease, and stroke, experiencing improved lung function, better overall health, and potentially noticing positive changes in taste and smell within a relatively short time frame after quitting, S elf-Managment Goals S uggested she make a plan to cut down number of cigarettes over time and set a date to work towards quitting. * * Sign off status: Completed true * Provider: Jaun Collier MD Date: 0 11/15/2024 Generated for Kristal lopez/Penny/Shoshanaitting on: 0 04/17/2025 01:39 PM EDT History and Physical Notes * HPI (History of Present Illness) Category Sub-Category Detail Notes Category Not es Symptom(s) patient is a 69 yo female here for 6 month follow up visit. is gaining weight Examination Category Sub-Category Detail Notes Category Not es General Examination GENERAL APPEARANCE: alert, w ell hydrated, in no distress EYES: extraocular movement full and smooth HEART: no murmurs, rubs, ga llops, regular rate and rhythm LUNGS: clear to auscultatio n bilaterally, good air movement ABDOMEN: soft, nontender, non distended, no hepatosplenomegaly SKIN: good turgor
--- NOTE | ~2025-04-17 | US_ITS ---
CLINICAL HISTORY: D25.9 - Leiomyoma of uterus, unspecified US pelvis transabdominal and transvaginal Comparison: US/SR - US PELVIC AND TRANSVAGINAL - 07/12/24 10:46 EDT Findings: Transabdominal scanning performed for overall anatomy. Transvaginal scanning performed for additional detail. Anteverted uterus is 5.4 x 2.3 x 3.8 cm, corresponds to a volume of 24.7 mL. Two small fibroids are noted measuring up to 1.1 cm. Normal myometrium. Endometrium 2 mm thickness. Right ovary 1.3 x 1.1 x 1.1 cm. Left ovary 1.1 x 0.9 x 1.0 cm. Normal color Doppler of both ovaries. No free fluid. IMPRESSION: 1. 2 small fibroids are noted measuring up to 1.1 cm, otherwise unremarkable. This document has been electronically signed by: Dejah Stearns MD on 04/17/2025 22:22:11
--- OUTSIDE RECORDS SUMMARY | 2025-04-17 13:39 | XMS_ITS | Patient Health Record ---
Author Organization [facility] Address [address] [place] [address] Care Team Providers Care Blood Bank Specialist Name Role Phone Avery Collier MD Primary Care Provider Calderon Hu [phone] Allergies Allergen (clinical drug ingredient) Drug/Non Drug Allergy documented on EMR Reaction Allergy Type Onset Date Status Sulfa Unknown Drug Allergy Active Reason For Referral No Information Medications Medication SIG (Take, Route, Frequency, Duration) Notes Start Date End Date Status Vitamin D Active Valsartan 80 MG 1 tablet Orally Once a day for 30 day(s) Active Atorvastatin Calcium 80 MG 1 tablet Oral ly Once a day Active Calcium 600 600 MG as directed Orally Active Immunizations Vaccine Route Administration Date Status Comme nts Influenza Unknown 09/01/2021 Administered Problems Problem Type SNOMED Code ICD Code Onset Dates Problem Status W/U Status Risk Notes Problem [id number] Encounter for screening for malignant neoplasm of colon (Z12.11) Active confirmed Problem 094005547 History of adenomatous polyp of colon (Z86.010) Active confirmed Problem Encounter for screening for malignant neoplasm of rectum (Z12.12) Active confirmed Problem 96603264 Preprocedural examination (Z01.818) Active confirmed Problem 894578580 Hx of adenomatou s colonic polyps (Z86.010) Active confirmed Problem Diverticulosis of colon (503171006) Diverticulosis of colon (K57.30) Active confirmed Plan Of Treatment Future Test Test Name Order Date COLONOSCOPY 03/24/2016 COLONOSCOPY 09/22/2021 Insurance Providers Payer Name Payer Address Payer Phone Subscriber Number Group Number Insured Name Patient Relationship to Insured Coverage Start Date Coverage End Date [facility] [address] [place] [address] [id number] SIVA HUFFMAN Self - patient is the insured Medical (General) History Medical History History ICD Code Screening colonoscopy 02-29-2008- small tubular adenomas removed Denies [place],DM,CVA,Lung disease,renal dise ase Hyperlipidemia Colonoscopy in 03/2013--great er than 1 cm flat tubular adenoma removed from the transverse colon High blood pressure Osteoporosis Negative colonoscopy in 06/2016 Surgical History Surgery Date(Month/Year) Surgery of the right breast for benign d isease
== END 2025-04-17 12:47 | disposition home or self-care (01) ==
LOC: HO.HMGCX 12:46
PROVIDERS: PCP Internal Medicine; Visit Provider Obstetrics & Gynecology
DX: D25.9 Leiomyoma of uterus, unspecified (principal)
CPT/HCPCS: 76830; 76856

== ENCOUNTER → 2025-04-17 12:52 | Outpatient (BNV) | payer BC, SELFPAY | PROVIDERS: PCP Internal Medicine; Visit Provider Student in an Organized Health Care Education/Training Program | DX: D25.9 Leiomyoma of uterus, unspecified (principal) | CPT/HCPCS: 76830; 76856 ==

== ENCOUNTER 2025-05-01 06:12 | Outpatient (REF) | payer BC, SELFPAY ==
[2025-05-01 10:14] LABS: Appearance Urine Clear; Glucose Urine UA Negative (Negative); PH 5.5 (5.0-9.0); Specific Gravity - Urine <= 1.005 (1.005-1.025); UMIC TRIGGER UACC YES
[2025-05-01 10:27] LABS: MANUAL DIFF FLAG NO
[2025-05-01 10:38] LABS: Hematocrit 43.1 % (37.0-47.0); Hemoglobin 13.3 g/dl (12.0-16.0); Imm Gran Abs Auto 0.03 X10*3/uL (0.00-0.03); Imm Gran Pct Auto 0.4 % (0.0-0.4); Lymphocytes Absolute Auto 3.1 X10*3/uL (1.2-4.9); Mean Corpuscular HGB Conc 30.9 g/dl (31.0-35.0); Mean Corpuscular Hemoglobin 31.0 pg (27.0-33.0); Mean Corpuscular Volume 100.5 fL (80.0-98.0); NRBC Abs Auto 0.000 X10*3/uL (0.0-0.012); NRBC Pct Auto 0.0 /100WBC (0.0-0.2); Platelet Count 245 X10*3/uL (160-400); Red Blood Count 4.29 X10*6/uL (4.20-5.50); White Blood Count 7.7 X10*3/uL (4.8-10.8)
[2025-05-01 10:56] LABS: Alanine Aminotransferase 35 U/L (0-31); Albumin Level 4.2 g/dL (3.5-5.0); Alkaline Phosphatase 103 U/L (39-117); Anion Gap 11 (12-20); Aspartate Amino Transferase 31 U/L (5-31); Blood Urea Nitrogen 10 mg/dL (9-16); Calcium 8.9 mg/dL (8.4-10.2); Carbon Dioxide 23 mmol/L (22-29); Chloride 113 mmol/L (96-108); Cholesterol 239 mg/dL (<200); Estimated Glomerular Filt Rate > 60; HDL Cholesterol 34 mg/dL (>40); Potassium 4.8 mmol/L (3.3-5.1); Sodium 142 mmol/L (135-145); Total Protein 7.0 g/dL (6.5-8.0); Triglycerides 238 mg/dL (<150)
== END 2025-05-01 06:13 | disposition home or self-care (01) ==
LOC: HO.HMGCLDS 06:12
PROVIDERS: PCP Internal Medicine; Visit Provider Internal Medicine
DX: Z00.00 Encounter for general adult medical examination without abnormal findings (principal); E78.00 Pure hypercholesterolemia, unspecified; E55.9 Vitamin D deficiency, unspecified; D25.9 Leiomyoma of uterus, unspecified; I10 Essential (primary) hypertension
CPT/HCPCS: 36415; 80053; 80061; 81001; 82306; 85025

== ENCOUNTER 2025-05-01 08:06 | Outpatient (AMB) | payer BC, SELFPAY ==
--- OUTSIDE RECORDS SUMMARY | 2024-11-15 03:30 | XMS_ITS ---
Author Organization Avery Collier MD Address [address] [place], [place] [phone] Care Team Providers Care Sap Abap Programmer Name Role Phone Avery Collier Primary Care [...] day for 10 days 10/16/2020 Not-Taking Nystatin 466649 UNIT/GM 1 application to affected area Externally [...] Location Date Provider Diagnosis Avery Collier MD [address] [place] [address] [place] [phone] 11/15/2024 Avery Collier Pure hypercholestero lemia E78.00 [...] Next Appt Details Provider Name:Avery Otto ier, 05/09/2025 08:00:00 AM, [address], [address], [place], [place], [phone], Progress Notes * Sandra FAUSTINDOB:1955 (69 yo F)Acc No.[id number]:11/15/2024 Progress Notes Patient: Sandra IVAN Provider: Jaun Collier MD :1955 A ge:69 Y S ex:Female Date:11/15/2024 Address:[address] [place] [address], [facility] , [facility] Subjective: * Chief Complaints: * 6 MO [...] eye Ophthalmic Four times a day Nystatin 492245 UNIT/GM Cream 1 application to affected area [...] Ophthalmic Four times a day Not-Taking/PRN Nystatin 756602 UNIT/GM Cream 1 application to affected area [...] will repeat in 3 months 3. C marian smoker Notes: is going for screening yearly, [...] true * Provider: Jaun Collier MD Date: 11/15/2024 Generated for Kristal lopez/Penny/Shoshanaitting on: 0 05/01/2025 08:12 AM EDT History and Physical Notes * HPI [...]
[2025-05-01 08:11] VITALS: BP 150/80; BMI 34.3
--- NOTE | 2025-05-01 08:11 | MHC.OFFVIS ---
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 The patient is doing well with no complaints no abnormal uterine bleeding, pelvic pressure or pain. Pelvic ultrasound done recently showed the following: Transabdominal scanning performed for overall anatomy. Transvaginal scanning performed for additional detail. Anteverted uterus is 5.4 x 2.3 x 3.8 cm, corresponds to a volume of 24.7 mL. Two small fibroids are noted measuring up to 1.1 cm. Normal myometrium. Endometrium 2 mm thickness. Right ovary 1.3 x 1.1 x 1.1 cm. Left ovary 1.1 x 0.9 x 1.0 cm. Normal color Doppler of both ovaries. No free fluid. IMPRESSION: 1. 2 small fibroids are noted measuring up to 1.1 cm, otherwise unremarkable. [facility] Medical History Hypertension Hyperlipidemia Impaired fasting glucose Osteoporosis (~2013) Nicotine dependence, cigarettes, uncomplicated Vitamin D deficiency Tubular adenoma of colon (~2007) Obesity (BMI 30-39.9) COVID-19 vaccine series completed Surgical History Hx of cataract surgery History of laryngoscopy History of breast biopsy History of colonoscopy Hx of wisdom tooth extraction Family History Father No problems noted. Mother CVD (cardiovascular disease) Social History Household Members: Spouse Household Members Other:: Housing Other:: mobile home Are you a primary urgent care physician to a significant other at home: No Do you presently have visiting nurse or other home services: No Alcohol intake: never Patient Tobacco Use Status: Current everyday Tobacco user Tobacco use type: Cigarette Cigarettes Per Day: 6 Years Smoked: 25+ Review of Systems Const All systems reviewed & are unremarkable except as noted in HPI and below Reports as per HPI and Reports no additional complaints GI Reports no additional complaints Reports no additional complaints Physical Exam Vital Signs: Last Vital Signs BP 150/80 H 05/01/25 08:11 BMI result Body Mass Index 34.3 Assessment & Plan Assessment & Plan (1) Uterine myoma: Code(s): D25.9 - Leiomyoma of uterus, unspecified Category: Medical Plan: Discussed with the patient the findings on pelvic ultrasound & the risk of myosarcoma; in addition reviewed with the patient that malignancy and pre malignancy cannot be ruled out without hysterectomy for pathological evaluation ; furthermore, explained to the patient the limitation of pelvic ultrasound and endometrial biopsy in the setting. Discussed with the patient the options of treatment including expectant management versus hysterectomy; the pros and cons, risks benefits of each approach were discussed with the patient including the fact that in cases of myosarcoma, surgical treatment can lead to early diagnosis and positively affects the prognosis; after further discussion, the patient decided to proceed with expectant management. Will repeat pelvic ultrasound periodically. Instructions given to patient to call in case any of the following occurs: pressure symptoms, abnormal uterine bleeding, pelvic pain; and to schedule a 12 months pelvic ultrasound (order placed) and a follow-up appointment . All questions answered, the patient verbalized understanding and agreed with the plan . Orders: Orders US pelvic and transvaginal 12 Months D25.9 - Leiomyoma of uterus, unspecified Coding Level of Care Code Est Pt Level 3 (39012) Diagnoses Uterine myoma D25.9
--- OUTSIDE RECORDS SUMMARY | 2025-05-01 08:13 | XMS_ITS | Patient Health Record ---
Author Organization [facility] Address [address] [place] [address] Care Team Providers Care School Athletic Director Name Role Phone Avery Collier MD Primary Care Provider Calderon Hu [phone] Allergies Allergen (clinical drug ingredient) Drug/Non Drug [...] Problem Status W/U Status Risk Notes Problem [id number] Encounter for screening for malignant neoplasm of colon (Z12.11) Active confirmed Problem 759780841 History of adenomatous polyp of colon (Z86.010) Active confirmed Problem Screening for malignant neoplasm of rectum (050952275) Encounter for screening for malignant neoplasm of rectum (Z12.12) Active confirmed Problem 33002334 Preprocedural examination (Z01.818) Active confirmed Problem 217829935 Hx of adenomatou s colonic polyps (Z86.010) Active confirmed Problem Diverticulosis of colon (042832732) Diverticulosis of colon (K57.30) Active confirmed Plan Of Treatment Future Test Test Name Order Date COLONOSCOPY 03/24/2016 COLONOSCOPY 09/22/2021 Insurance Providers Payer Name Payer Address Payer Phone Subscriber Number Group Number Insured Name Patient Relationship to Insured Coverage Start Date Coverage End Date [facility] [address] [place] [address] [phone] [id number] SIVA HUFFMAN Self - patient is the insured Medical (General) History Medical History History ICD Code Screening colonoscopy 02-29-2008-2 small tubular adenomas removed Denies [place],DM,CVA,Lung disease,renal dise ase Hyperlipidemia Colonoscopy in 03/2013--great er than 1 cm flat tubular adenoma removed from the transverse colon High blood pressure Osteoporosis Negative colonoscopy in 06/2016 Surgical History Surgery Date(Month/Year) Surgery of the right breast for benign d isease
== END 2025-05-01 08:34 | disposition home or self-care (01) ==
LOC: HO.HWS 08:06
PROVIDERS: PCP Internal Medicine; Visit Provider Obstetrics & Gynecology
DX: D25.9 Leiomyoma of uterus, unspecified (principal)
CPT/HCPCS: 99213

== ENCOUNTER 2025-05-09 09:42 | Outpatient (REF) | payer BC, SELFPAY ==
--- OUTSIDE RECORDS SUMMARY | 2025-05-09 04:00 | XMS_ITS ---
Author Organization Avery Collier MD Address [address] [place], [place] [id number] Care Team Providers Care Veterinary Inspector Name Role Phone Avery Collier Primary Care Provider Allergies Allergen (clinical drug ingredient) Drug/Non Drug Allergy documented on EMR Reaction Allergy Type Onset Date Status Medicinal product containing thiazide and acting as diuretic agent (product) Thiazide-Type Diuretics Unknown Drug Allergy Active sulfamethoxazole / trimethoprim bactrim (uncoded) rash Allergy Active REASON FOR VISIT ANNUAL EXAM Medications Medication SIG (Take, Route, Frequency, Duration) Notes Start Date End Date Status Bumetanide 0.5 MG TAKE 1 TABLET BY [...] Active hydroCHLOROthiazide 25 MG 1 tablet in th e morning Orally Once a day for 30 day(s) 05/05/2023 Not-Taking Atorvastatin Calcium 80 MG TAKE 1 TABLET BY MOUTH EVERY DAY Active Nystatin 053680 UNIT/GM 1 application to affected area Externally Twice a day for 14 days 01/19/2018 Not-Taking Calcium 600/Vitamin D3 600-800 MG-UNIT 1 tablet with a meal Orally twice a day Active Nystatin 364009 UNIT/GM 1 application Externally Twice a day for 30 days 05/09/2025 Active Ocuflox 0.3 % 1 drop into affected eye Ophthalmic Four times a day for 10 days 10/16/2020 Not-Taking Ventolin HFA * 108 (90 Base) MCG/ACT 2 puffs as needed Inhalation every 4 hrs for 30 day(s) 06/23/2018 Not-Taking Prolia 60 MG/ML injection Subcutaneous every 6 months Not-Taking Furosemide 20 MG 1 tablet Orally Once a day for 30 day(s) 05/05/2023 Not-Taking Social History Tobacco Use: Social History Observation Description Date Details (start date - stop date) Current Smoker NA - NA Tobacco Use/Smoking Question Answer Notes Patient is a current smoker How often do you smoke cigarettes? every day How many cigarettes a day do you smoke? 5 or les s How soon after you wake up d o you smoke your first cigarette? after 60 minutes Are you interested in quitting? Not ready to jessica t Additional Findings: Tobacco User Gloria t cigarette smoker, not currently using another form of tobacco Alcohol Screen Question Answer Notes Did you have a drink containing alcohol in the p ast year? No Points 0 Interpretation Negative Vital Signs Blood pressure systolic 158 mm Hg 05/09/20 25 Blood pressure diastolic 64 mm Hg 025 Height 59.50 in 05/09/2025 Weight 163 lbs 05/09/2025 BMI 32.37 kg/m2 05/09/2025 weight is up 3 pounds since 04-08-25 Encounters Encounter Location Date Provider Diagnosis Avery Collier MD [address] [place] [address] [place] [phone] 05/09/2025 Avery Collier Annual physical exam Z00.00 ; Pure hypercholesterolemia E78.00 ; Current smoker F17.200 ; Edema extremities R60.0 and Yeast infection B37.9 Assessments Encounter Date Diagnosis (ICD Code) Assessment Notes Treatment Notes Treatment Clinical Notes Section Notes 05/09/2025 Annual physical exam (ICD-10 - Z00.00) 05/09/2025 Pure hypercholesterolemia (ICD-10 - E78.00) wants to diet and lose 40 and not take meds 05/09/2025 Current smoker (ICD- 10 - F17.200) 05/09/2025 Edema extremities (ICD-10 - R60.0) 05/09/2025 Yeast infection (ICD -10 - B37.9) Plan Of Treatment Medication Medication Name Sig Start Date Stop Date Notes Nystatin 266458 UNIT/GM 1 application Ex ternally Twice a day for 30 days 05/09/2025 Treatment Notes Assessment Notes Pure hypercholesterolemia wants to diet and lose 40 and not take meds Pending Test Test Name Order Date TSH reflex Free T4 05/09/2025 Next Appt Details Follow Up: 6 Months, Reason: Provider Name:Avery bucio, 11/01/2025 08:00:00 AM, [address] [place] [address], [address], [phone], Provider Name:Avery bucio, 11/08/2025 10:00:00 AM, [address] [place] [address], [address], [phone], Provider Name:Avery bucio, 04/15/2026 07:00:00 AM, [address] [place] [address], [address], [phone], Provider Name:Avery bucio, 05/16/2026 08:30:00 AM, [address] [place] [address], [phone], Progress Notes * Sandra FAUSTINDOB:1955 (69 yo F)Acc No.[id number]:05/09/2025 Progress Notes Patient: Sandra IVAN Provider: Jaun Collier MD :1955 A ge:69 Y S ex:Female Date:05/09/2025 Address:[address] [place] [address], [address] [place] [address], [id number] Subjective: * Chief Complaints: * 1 . ANNUAL EXAM. * HPI: D epression Screening: PHQ-9 L ittle interest or pleasure in doing things N ot at all, F eeling down, depressed, or hopeless N ot at all, T rouble falling or staying asleep, or sleeping too much N ot at all, F eeling tired or having little energy N ot at all, P oor appetite or overeating N ot at all, F eeling bad about yourself or that you are a failure, or have let yourself or your family down N ot at all, T rouble concentrating on things, such as reading the newspaper or watching television N ot at all, M oving or speaking so slowly that other people could have noticed; or the opposite, being so fidgety or restless that you have been moving around a lot more than usual N ot at all, T houghts that you would be better off or of hurting yourself in some way N ot at all, T otal Score 0 . I nterpretation and Intervention D epression Screening Findings N egative, F ollow-Up for Depression : review of PHQ-9 found negative result, no follow-up needed. C ommunication Needs: Communication Needs D oes the patient have a hearing impairment N o, D oes the patient have a vision impairment? Y es, I f yes, what is the vision impairment? G lasses, D oes the patient have a cognition impairment? N o. F all Risk: History H ave you had any falls with injury in the past year? N o, H ave you had two or more falls in the past year? N o. S RAGINI Questions: SDOH Questions I n the past year have you been worried about losing housing? N o, I n the past year have you or any family members you live with been unable to get any of the following when it was really needed? Check all that apply: N one. S ymptom(s): patient is a 69 yo female here for annual visit with review of recent labs and follow up of chronic issues. * ROS: G eneral/Constitutional: Change in appetite d enies. C hills d enies. F ever d enies. O phthalmologic: Blurred vision d enies. D ischarge d enies. P ain d enies. E NT: Decreased hearing d enies. S ore throat d enies.?Swollen glands d enies. E ndocrine: Cold intolerance d enies. E xcessive thirst d enies. H eat intolerance d enies. W eight loss d enies. R espiratory: Cough d enies. S hortness of breath at rest d enies. S hortness of breath with exertion d enies. W heezing d enies. C ardiovascular: Chest pain at rest d enies. C hest pain with exertion?denies. I rregular heartbeat d enies. S hortness of breath d enies. ? G astrointestinal: Abdominal pain d enies. C hange in bowel habits d enies. D iarrhea d enies. N ausea d enies. R ectal bleeding d enies. V omiting d enies . G enitourinary: Blood in urine d enies. D ifficulty urinating d enies. F requent urination d enies. U rinary incontinence D enies. M usculoskeletal: Painful joints d enies. W eakness d enies. ? S kin: Dry skin d enies. I tching d enies. D enies?Mole(s), changes in moles, new moles or any lesions of concern. D enies P hotosensitivity. R asia d enies. N eurologic: Dizziness d enies. F ainting d enies. H eadache?denies. * Medical History: R efuses flu shot (08/29/12), Hematuria work up in 2011 cysto and ultrasound, colonoscopy 2007; 04/05/13 - repeat 3 yrs; Colonoscopy done 07/08/16 w/Dr. Pacheco - repeat 5 yrs: Colonoscopy repeat 5yr, Pap smear - 11/09/2013, Cataract, unspecified cataract type, unspecified laterality, Cataract, unspecified cataract type, unspecified laterality. * Family History: F ather: alive 88 yrs. M other: 79 yrs. 1 daughter(s) . . Mother- Cardiac Father- Healthy, Denies mental health/substance abuse family history, Denies mental health/substance abuse family history, Denies mental health/substance abuse family history. * Social History: T obacco Use: T obacco Use/Smoking P atient is a c urrent smoker, H ow often do you smoke cigarettes? e very day, H ow many cigarettes a day do you smoke? 5 or less, H ow soon after you wake up do you smoke your first cigarette? a fter 60 minutes, A re you interested in quitting? N ot ready to quit, A dditional Findings: Tobacco User C urrent cigarette smoker, not currently using another form of tobacco. D rugs/Alcohol: A lcohol Screen D id you have a drink containing alcohol in the past year? N o, P oints 0 , I nterpretation N egative. M iscellaneous: C affeine: yes, frequency:, 3-4 cups per day. Children: yes. Community involvements: no. Exercise: yes, 3-4 times per week walking 20 minutes. Housing: owning. Living with: spouse. Marital status: . Occupation: works full-time. Pets: cats. Travel outside of the [place]: no. * Medications: T aking Atorvastatin Calcium 80 [...] Four times a day , Not-Taking/PRN Nystatin 311712 UNIT/GM Cream 1 application to affected area Externally Twice a day , Medication List reviewed and reconciled with the patient * Allergies: b actrim: rash, Thiazide-Type Diuretics. Objective: * Vitals: H t: 59.50, Wt: 163, BMI:32.37, BP:158/64, Repeat BP:142/78, Wt-k.94. weight is up 3 pounds since 04-08-25. * P ast Orders: L ab:Complete Blood Count Auto Diff (Order Date - 05/01/2025) (Collection Date & Time - 05/01/2025 06:38 AM) Value Reference Range White Blood Count 7.7 4.8-10.8 - X10*3/uL Red Blood Count 4.29 4.20-5.50 - X10*6/uL Hemoglobin 13.3 12.0-16.0 - g/dl Hematocrit 43.1 37.0-47.0 - % Mean Corpuscular Volume 100.5 H 80.0-98.0 - fL Mean Corpuscular Hemoglobin 31.0 27.0-33.0 - pg Mean Corpuscular HGB Conc 30.9 L 31.0-35.0 - g/ dl Red Cell Distribution Width 13.5 11.0-16.0 - % Platelet Count 245 160-400 - X10*3/uL Mean Platelet Volume 12.0 9.4-12.3 - fL Neutrophils Percent Auto 50.0 45-73 - % Imm Gran Pct Auto 0.4 0.0-0.4 - % Lymphocytes Percent Auto 40.7 H 20-40 - % Monocytes Percent Auto 6.5 2-11 - % Eosinophils Percent Auto 1.7 0-4 - % Basophils Percent Auto 0.7 0-2 - % NRBC Pct Auto 0.0 0.0-0.2 - /100WBC Neutrophils Absolute Auto 3.8 2.0-8.3 - x10* 3/uL Imm Gran Abs Auto 0.03 0.00-0.03 - X10*3/uL Lymphocytes Absolute Auto 3.1 1.2-4.9 - X10* 3/uL Monocytes Absolute Auto 0.5 0.1-1.2 - X10*3/ uL Eosinophils Absolute Auto 0.1 0.0-0.4 - X10* 3/uL Basophils Absolute Auto 0.1 0.0-0.2 - X10*3/ uL NRBC Abs Auto 0.000 0.0-0.012 - X10*3/uL L ab:Comprehensive [place]. Panel Fast (Order Date - 05/01/2025) (Collection Date & Time - 05/01/2025 06:38 AM) Value Reference Range Sodium 142 135-145 - mmol/L Bilirubin Total 0.6 0.0-1.0 - mg/dL Aspartate Amino Transferase 31 5-31 - U/L Alanine Aminotransferase 35 H 0-31 - U/L Total Protein 7.0 6.5-8.0 - g/dL Albumin Level 4.2 3.5-5.0 - g/dL Alkaline Phosphatase 103 39-117 - U/L Potassium 4.8 3.3-5.1 - mmol/L Chloride 113 H 96-108 - mmol/L Carbon Dioxide 23 22-29 - mmol/L Anion Gap 11 L 12-20 - Blood Urea Nitrogen 10 9-16 - mg/dL Creatinine 0.89 0.5-1.4 - mg/dL Estimated Glomerular Filt Rate > 60 - Glucose Fasting 107 H 60-99 - mg/dL Calcium 8.9 8.4-10.2 - mg/dL L ab:Lipid Panel (Order Date - 05/01/2025) (Collection Date & Time - 05/01/2025 06:38 AM) Value Reference Range Triglycerides 238 H <150 - mg/dL Cholesterol 239 H <200 - mg/dL LDL Cholesterol Calculated 158 H <100 - mg/dL HDL Cholesterol 34 L >40 - mg/dL L ab:Vitamin D 25-OH Total (Order Date 05/01/2025) (Collection Date & Time - 05/01/2025 06:38 AM) Value Reference Range Vitamin D 25-OH Total 68.1 >30 - ng/mL L ab:UA ClnCatch+Micro w/rflx Cult (Order Date 05/01/2025) (Collection Date & Time - 05/01/2025 06:38 AM) Value Reference Range Color Urine Yellow - Appearance Urine Clear - PH 5.5 5.0-9.0 - Glucose Urine UA Negative Negative - mg/dL Urine Blood Trace A Negative - Specific [place] - Urine <= 1.005 1.005-1.025 - Urine Protein Negative Neg-Trace - mg/dL Urine Ketones Negative Negative - mg/dL Nitrite Urine Negative Negative - Leukocyte Esterase Urine Negative Negative - RBC Urine 0-2 0-2 - /HPF WBC Urine 0-5 0-5 - /HPF Squamous Epithelial Cell Urine 0-2 0-2 - /HP F Bacteria Urine None Seen None Seen - Hyaline Casts Urine 0-2 0-2 - /LPF * Examination: G eneral Examination: GENERAL APPEARANCE: w ell developed, well nourished, in no acute distress. HEAD: n ormocephalic, atraumatic. EYES: p upils equal, round, reactive to light and accommodation, sclera non-icteric. EARS: n ormal. ORAL CAVITY: m ucosa moist. THROAT: c lear. NECK/THYROID: n justin supple, full range of motion, no cervical lymphadenopathy, no bruits. SKIN: w arm and dry, no suspicious lesions, abnormal with rash on buttocks. HEART: r egular rate and rhythm, S1, S2 normal, no murmurs.? LUNGS: c lear to auscultation bilaterally. BREASTS: N o mass, no lump. ABDOMEN: s oft, nontender, nondistended, bowel sounds present, normal, no organomegaly , no masses palpable. RECTAL EXAM: s tool guaiac negative, no masses palpable.? FEMALE GENITOURINARY: n ot done. EXTREMITIES: n o clubbing, cyanosis, or edema. NEUROLOGIC: n onfocal, motor strength normal upper and lower extremities, sensory exam intact. Assessment: * Assessment: 1. A nnual physical exam - Z00.00 (Primary) 2 . P ure hypercholesterolemia - E78.00 3 . C urrent smoker - F17.200 4 . E merari extremities - R60.0 5 . Y east infection - B37.9 Plan: * Treatment: 2. E merari extremities L AB: TSH reflex Free T4 3. Y east infection Start Nystatin Cream, 867387 UNIT/GM, 1 application, Externally, Twice a day, 30 days, 60, Refills 5. * Procedure Codes: 3 6415 VENIPUNCT, ROUTINE* * Follow Up: 6 Months * * The named appointment provid er may or may not be the originator of this progress note, and it is not deemed complete until electronically signed by the appointment provider. Sign off status: Pending * Provider: Jaun Collier MD Date: 05/09/2025 Generated for Kristal lopez/Penny/Vasile on: 05/09/2025 10:09 AM EDT History and Physical Notes * HPI (History of Present Illness) Category Sub-Category Detail Notes Category Not es Symptom(s) patient is a 69 yo female here for annual visit with review of recent labs and follow up of chronic issues Depression Screening PHQ-9 Little inte rest or pleasure in doing things: Not at all Feeling down, depressed, or hopeless: No t at all Trouble falling or staying asleep, or sl eeping too much: Not at all Feeling tired or having little energy: N ot at all Poor appetite or overeating: Not at all Feeling bad about yourself o r that you are a failure, or have let yourself or your family down: Not at all Trouble concentrating on thi ngs, such as reading the newspaper or watching television: Not at all Moving or speaking so slowly that other people could have noticed; or the opposite, being so fidgety or restless that you have been moving around a lot more than usual: Not at all Thoughts that you would be b liang off or of hurting yourself in some way: Not at all Total Score: 0 Interpretation and Intervention Depression Celena salazar Findings: Negative Follow-Up for Depression: : review of PH Q-9 found negative result, no follow-up needed SDOH Questions SDOH Questions In the past year have you been worried about losing housing?: No In the past year have you or any family members you live with been unable to get any of the following when it was really needed? Check all that apply:: None Fall Risk History Have you had any falls with injury i n the past year?: No Have you had two or more falls in the st year?: No Communication Needs Communication Needs Does the patient have a hearing impairment: No Does the patient have a vision impairmen t?: Yes If yes, what is the vision impairment?: Glasses Does the patient have a cognition impair ment?: No Examination Category Sub-Category Detail Notes Category Not es General Examination GENERAL APPEARANCE: well dev eloped, well nourished, in no acute distress HEAD: normocephalic, atrau matic EYES: pupils equal, round, reactive to light and accommodation, sclera non-icteric EARS: normal THROAT: clear NECK/THYROID: neck supple, full ra nge of motion, no cervical lymphadenopathy, no bruits HEART: regular rate and rhy thm, S1, S2 normal, no murmurs LUNGS: clear to auscultatio n bilaterally ABDOMEN: soft, nontender, non distended, bowel sounds present, normal, no organomegaly , no masses palpable NEUROLOGIC: nonfocal, motor stre ngth normal upper and lower extremities, sensory exam intact SKIN: warm and dry, no edwardo picious lesions, abnormal with rash on buttocks EXTREMITIES: no clubbing, cyanosi s, or edema BREASTS: No mass, no lump RECTAL EXAM: stool guaiac negativ e, no masses palpable FEMALE GENITOURINARY: not done ORAL CAVITY: mucosa moist
--- OUTSIDE RECORDS SUMMARY | 2025-05-09 10:10 | XMS_ITS | Patient Health Record ---
Author Organization [facility] Address [address] [place] [address] Care Team Providers Care Board Catcher Name Role Phone Avery Collier MD Primary Care Provider Calderon Hu [phone] Allergies Allergen (clinical drug ingredient) Drug/Non Drug [...] Problem Status W/U Status Risk Notes Problem 773431476 Encounter for screening for malignant neoplasm of colon (Z12.11) Active confirmed Problem 112337659 History of adenomatous polyp of colon (Z86.010) Active confirmed Problem Screening for malignant neoplasm of rectum (535590763) Encounter for screening for malignant neoplasm of rectum (Z12.12) Active confirmed Problem 59198218 Preprocedural examination (Z01.818) Active confirmed Problem 572390838 Hx of adenomatou s colonic polyps (Z86.010) Active confirmed Problem Diverticulosis of colon (895561684) Diverticulosis of colon (K57.30) Active confirmed Plan Of Treatment Future Test Test Name Order Date COLONOSCOPY 03/24/2016 COLONOSCOPY 09/22/2021 Insurance Providers Payer Name Payer Address Payer Phone Subscriber Number Group Number Insured Name Patient Relationship to Insured Coverage Start Date Coverage End Date [facility] [address] [place] [address] [phone] [id number] SIVA HUFFMAN Self - patient is the insured Medical (General) History Medical History History ICD Code Screening colonoscopy 02-29-2008-2 small tubular adenomas removed Denies CA,DM,CVA,Lung disease,renal dise ase Hyperlipidemia Colonoscopy in 03/2013--great er than 1 cm flat tubular adenoma removed from the transverse colon High blood pressure Osteoporosis Negative colonoscopy in 06/2016 Surgical History Surgery Date(Month/Year) Surgery of the right breast for benign d isease
== END 2025-05-09 09:43 | disposition home or self-care (01) ==
LOC: HO.LNP 09:42
PROVIDERS: Visit Provider Internal Medicine
DX: R60.0 Localized edema (principal)
CPT/HCPCS: 84443

== ENCOUNTER 2025-07-05 07:45 | Outpatient (REF) | payer BC, SELFPAY ==
--- OUTSIDE RECORDS SUMMARY | 2025-02-12 05:00 | XMS_ITS ---
Author Organization Avery Collier MD Address [address] [place] [phone] Care Team Providers Care Extruding Press Adjuster Name Role Phone Avery Collier Primary Care Provider REASON FOR VISIT fasting liver lipids Encounters Encounter Location Date Provider Diagnosis Avery Collier MD [address] [place] [phone] 02/12/2025 Avery Collier Pure hypercholestero lemia E78.00 Assessments Encounter Date Diagnosis (ICD Code) Assessment Notes Treatment Notes Treatment Clinical Notes Section Notes 02/12/2025 Pure hypercholesterolemia (ICD-10 - E78.00) Plan Of Treatment Pending Test Test Name Order Date Liver Panel 02/12/2025 Lipid Panel with Reflex 02/12/2025 Next Appt Details Provider Name:Avery bucio, 11/01/2025 08:00:00 AM, [address], [address], [place], [phone], Provider Name:Avery Otto ier, 11/08/2025 10:00:00 AM, [address], [address], [place], [phone], Provider Name:Avery Otto ier, 04/15/2026 07:00:00 AM, [address], [address], [place], [phone], Provider Name:Avery Otto ier, 05/16/2026 08:30:00 AM, [address], [address], [place], [phone], Progress Notes * Sandra FAUSTIN BijalDOB:1955 (69 yo F)Acc No.[id number]:02/12/2025 Progress Note Patient: Sandra IVAN Provider: Jaun Collier MD :1955 A ge:69 Y S ex:Female Date:02/12/2025 Address:[address] [place], [place] [phone] Subjective: * Chief Complaints: * 1 . Fasting liver lipids. * Medical History: Objective: * Vitals: Assessment: * Assessment: 1. P ure hypercholesterolemia - E78.00 (Primary) Plan: * Treatment: * * The named appointment provid er may or may not be the originator of this progress note, and it is not deemed complete until electronically signed by the appointment provider. Sign off status: Pending * Provider: Jaun Collier MD Date: 02/12/2025 Generated for Kristal lopez/Penny/Shoshanaitting on: 0 07/05/2025 07:47 AM EDT
--- OUTSIDE RECORDS SUMMARY | 2025-04-08 10:45 | XMS_ITS ---
Author Organization Avery Collier MD Address [address] [place], [place] [phone] Care Team Providers Care Advertising Dispatch Clerks Supervisor Name Role Phone Avery Collier Primary Care Provider Allergies Allergen (clinical drug ingredient) Drug/Non Drug Allergy documented on EMR Reaction Allergy Type Onset Date Status Medicinal product containing thiazide and acting as diuretic agent (product) Thiazide-Type Diuretics Unknown Drug Allergy Active sulfamethoxazole / trimethoprim bactrim (uncoded) rash Allergy Active REASON FOR VISIT cough productive SOB, runny nose congestion x 3 days Covid negative negative this AM, video [phone] Medications Medication SIG (Take, Route, Frequency, Duration) Notes Start Date End Date Status Ventolin HFA * 108 (90 Base) MCG/ACT 2 puffs as needed Inhalation every 4 hrs for 30 day(s) 06/23/2018 Not-Taking Zithromax Z-Saud 250 MG 2 tablet on the first day, then 1 tablet daily for 4 days Orally Once a day for 5 day(s) 04/08/2025 Active Prolia 60 MG/ML injection Subcutaneous every 6 months Not-Taking Ocuflox 0.3 % 1 drop into affected eye Ophthalmic Four times a day for 10 days 10/16/2020 Not-Taking Nystatin 829576 UNIT/GM 1 application to affected area Externally Twice a day for 14 days 01/19/2018 Not-Taking Valsartan 80 MG TAKE 1 TABLET BY MOUTH ONCE A DAY for 90 Active rOPINIRole HCl 1 MG TAKE 1 TABLET BY MOUTH 1 TO 3 HOURS BEFORE BEDTIME for 90 Active Albuterol Sulfate HFA 108 (90 Base) MCG/ACT INHALE 2 PUFFS EVERY 4 HOURS NEEDED for 30 Active hydroCHLOROthiazide 25 MG 1 tablet in morning Orally Once a day for 30 day(s) 05/05/2023 Not-Taking Furosemide 20 MG 1 tablet Orally Once a day for 30 day(s) 05/05/2023 Not-Taking Bumetanide 0.5 MG TAKE 1 TABLET BY MOUTH EVERY DAY FOR 30 DAYS Active predniSONE 10 MG 1 tablet with food or milk Orally 4 tabs for 3 days,3tabs for 3 days, 2 tabs for 3 days, and 1 tab for 3 days for 14 days 04/08/2025 Active Atorvastatin Calcium 80 MG TAKE 1 TABLET BY MOUTH EVERY DAY Active Calcium 600/Vitamin D3 600-800 MG-UNIT 1 tablet with a meal Orally twice a day Active Problems Problem Type SNOMED Code ICD Code Onset Dates Problem Status W/U Status Risk Notes Problem Asthmatic bronchitis (886253319) Asthmatic bronchitis (J45.909) Active confirmed Vital Signs Temperature 99 degrees Fahrenheit 04/08/2025 Height 59.50 in 04/08/2025 Weight 160 lbs 04/08/2025 BMI 31.77 kg/m2 04/08/2025 weight is 160 at home Bp not taken temp was 99 yesterday Encounters Encounter Location Date Provider Diagnosis Avery Collier MD [address] [place] [address] [place] [phone] 04/08/2025 Avery Collier Asthmatic bronchitis J45.909 Assessments Encounter Date Diagnosis (ICD Code) Assessment Notes Treatment Notes Treatment Clinical Notes Section Notes 04/08/2025 Asthmatic bronchitis (ICD-10 - J45.909) patient verbalized understanding of medication and directions for use Plan Of Treatment Medication Medication Name Sig Start Date Stop Date Notes Zithromax Z-Saud 250 MG 2 tablet on the f irst day, then 1 tablet daily for 4 days Orally Once a day for 5 day(s) 04/08/2025 predniSONE 10 MG 1 tablet with food o r milk Orally 4 tabs for 3 days,3tabs for 3 days, 2 tabs for 3 days, and 1 tab for 3 days for 14 days 04/08/2025 Treatment Notes Assessment Notes Asthmatic bronchitis patient verbalized understanding of medication and directions for use Next Appt Details Provider Name:Avery bucio, 11/01/2025 08:00:00 AM, [address] [place] [address], [address], [phone], Provider Name:Avery bucio, 11/08/2025 10:00:00 AM, [address] [place] [address], [address], [phone], Provider Name:Avery bucio, 04/15/2026 07:00:00 AM, [address] [place] [address], [address], [phone], Provider Name:Avery bucio, 05/16/2026 08:30:00 AM, [address] [place] [address], [address], [phone], Progress Notes * Sandra FAUSTINDOB:1955 (69 yo F)Acc No.[id number]:04/08/2025 Patient: Sandra IVAN Provider: Jaun Collier MD :1955 A ge:69 Y S ex:Female Date:04/08/2025 Address:[address] [place] [address] , [facility] , [place] Subjective: * Chief Complaints: * 1 . cough productive SOB, runny nose congestion x 3 days Covid negative negative this AM. 2. Video [phone]. * HPI: S ymptom(s): Telehealth L ocation of provider rendering services: [address] [facility], [address], L ocation of patient: a t address listed in demographics for today's visit, Refugio fernandes identification confirmed using: IVELISSE Oconnell ame, T elehealth method: T elephone only. Patient not visible to care provider., C onsent: P dom verbally consented to treatment, Patient verbally consented to billing insurance company, Patient informed of any privacy concerns related to method of visit, T otadevin time spend talking with patient (minutes) 1 5. patient is a 69 yo female video telehealth visit, here as emergency for cough, rinny nose and congestion for 3 days. not much sputum. wheezing. using nebulizer, tested negative for covid. * ROS: G eneral/Constitutional: Denies C hills. A dmits F atigue. D enies F ever. A dmits H eadache. E NT: Denies S ore throat. R espiratory: Admits C ough. D enies S hortness of breath at rest. D enies S hortness of breath with exertion. A dmits S putum production. A dmits W heezing. G astrointestinal: Denies D iarrhea. D enies N ausea. * Medical History: R efuses flu shot (08/29/12), Hematuria work up in 2011 cysto and ultrasound, colonoscopy 2007; 04/05/13 - repeat 3 yrs; Colonoscopy done 07/08/16 w/Dr. Pacheco - repeat 5 yrs: Colonoscopy repeat 5yr, Pap smear - 11/09/2013, Cataract, unspecified cataract type, unspecified laterality, Cataract, unspecified cataract type, unspecified laterality. * Medications: T aking Atorvastatin Calcium 80 MG Tablet TAKE 1 TABLET BY MOUTH EVERY DAY , Taking Calcium 600/Vitamin D3 600-800 MG-UNIT Tablet 1 tablet with a meal Orally twice a day , Taking Bumetanide 0.5 MG Tablet TAKE 1 TABLET BY MOUTH EVERY DAY FOR 30 DAYS , Taking Valsartan 80 MG Tablet TAKE 1 TABLET BY MOUTH ONCE A DAY , Taking rOPINIRole HCl 1 MG Tablet TAKE 1 TABLET BY MOUTH 1 TO 3 HOURS BEFORE BEDTIME , Taking Albuterol Sulfate HFA 108 (90 Base) MCG/ACT Aerosol Solution INHALE 2 PUFFS EVERY 4 HOURS NEEDED , Not-Taking/PRN hydroCHLOROthiazide 25 MG Tablet 1 tablet in the morning Orally Once a day , Not-Taking/PRN Furosemide 20 MG Tablet 1 tablet Orally Once a day , Not-Taking/PRN Ventolin HFA * 108 (90 Base) MCG/ACT Aerosol Solution 2 puffs as needed Inhalation every 4 hrs , Not-Taking/PRN Prolia 60 MG/ML Solution injection Subcutaneous every 6 months , Not-Taking/PRN Ocuflox 0.3 % Solution 1 drop into affected eye Ophthalmic Four times a day , Not-Taking/PRN Nystatin 477357 UNIT/GM Cream 1 application to affected area Externally Twice a day , Medication List reviewed and reconciled with the patient * Allergies: b actrim: rash, Thiazide-Type Diuretics. Objective: * Vitals: H t: 59.50, Wt: 160, BMI:31.77, Temp:99, Wt-k.58. weight is 160 at home B p not taken temp was 99 yesterday. Assessment: * Assessment: 1. A static bronchitis - J45.909 (Primary) Plan: * Treatment: * * The named appointment provid er may or may not be the originator of this progress note, and it is not deemed complete until electronically signed by the appointment provider. Sign off status: Pending * Provider: Jaun Collier MD Date: 0 04/08/2025 Generated for Kristal lopez/Penny/Vasile on: 0 07/05/2025 07:48 AM EDT History and Physical Notes * HPI (History of Present Illness) Category Sub-Category Detail Notes Category Not es Symptom(s) Telehealth Location of [facility] rendering services:: [address], [address] patient is a 69 yo female video telehealth visit, here as emergency for cough, rinny nose and congestion for 3 days. not much sputum. wheezing. using nebulizer, tested negative for covid Location of patient:: at address listed in demographics for today's visit Patient identification confirmed using:: Name, Telehealth method:: Telephone only. Rimma ent not visible to care provider. Consent:: Patient verbally c onsented to treatment, Patient verbally consented to billing insurance company, Patient informed of any privacy concerns related to method of visit Total time spend talking with patient (m inutes): 15
--- OUTSIDE RECORDS SUMMARY | 2025-05-02 03:30 | XMS_ITS ---
Author Organization Avery Collier MD Address [address] [place] [phone] Care Team Providers Care Internet Sales Consultant Name Role Phone Avery Collier Primary Care Provider REASON FOR VISIT FASTING LABS Encounters Encounter Location Date Provider Diagnosis Avery Collier MD [address] [place], [place] [phone] 05/02/2025 Avery Collier Blood tests for rout ine general physical examination Z00.00 ; Pure hypercholesterolemia E78.00 ; Vitamin D deficiency E55.9 and Essential hypertension I10 Assessments Encounter Date Diagnosis (ICD Code) Assessment Notes Treatment Notes Treatment Clinical Notes Section Notes 05/02/2025 Blood tests for rout ine general physical examination (ICD-10 - Z00.00) 05/02/2025 Pure hypercholesterolemia (ICD-10 - E78.00) 05/02/2025 Vitamin D deficiency (ICD-10 - E55.9) 05/02/2025 Essential hypertensi on (ICD-10 - I10) Plan Of Treatment Pending Test Test Name Order Date Complete Blood Count Auto Diff 5 Comprehensive [place]. Panel Fast 5 Lipid Panel 05/02/2025 Vitamin D 25-OH Total 05/02/2025 UA ClnCatch+Micro w/rflx Cult 05/02/2025 Next Appt Details Provider Name:Avery Otto ier, 11/01/2025 08:00:00 AM, [address], [place], [place], [phone], Provider Name:Avery Otto ier, 11/08/2025 10:00:00 AM, [address] [place] [address] Drive, Suite [facility], [place], [place], [phone], Provider Name:Avery Otto ier, 04/15/2026 07:00:00 AM, [address] [place] [address], Suite [facility], [place], [place], [phone], Provider Name:Avery Otto ier, 05/16/2026 08:30:00 AM, [address] [place] [address] Drive, [address], [place], [place], [id number], Progress Notes * Sandra FAUSTIN BijalDOB:1955 (69 yo F)Acc No.[id number]:05/02/2025 Progress Note Patient: Sandra IVAN Provider: Jaun Collier MD :1955 A ge:69 Y S ex:Female Date:05/02/2025 Address:[address] [place] [address] [address] , [place], [id number] Subjective: * Chief Complaints: * 1 . FASTING LABS. * Medical History: Objective: * Vitals: Assessment: * Assessment: 1. B lood tests for routine general physical examination - Z00.00 (Primary) 2 .?Pure hypercholesterolemia - E78.00 3 . V itamin D deficiency - E55.9 ? 4 . E ssential hypertension - I10 Plan: * Treatment: 2. P ure hypercholesterolemia L AB: Complete Blood Count Auto Diff L AB: Comprehensive [place]. Panel Fast L AB: Lipid Panel L AB: Vitamin D 25-OH Total L AB: UA ClnCatch+Micro w/rflx Cult 3. V itamin D deficiency L AB: Complete Blood Count Auto Diff L AB: Comprehensive [place]. Panel Fast L AB: Lipid Panel L AB: Vitamin D 25-OH Total L AB: UA ClnCatch+Micro w/rflx Cult 4. E ssential hypertension L AB: Complete Blood Count Auto Diff L AB: Comprehensive [place]. Panel Fast L AB: Lipid Panel L AB: Vitamin D 25-OH Total L AB: UA ClnCatch+Micro w/rflx Cult * * The named appointment provid er may or may not be the originator of this progress note, and it is not deemed complete until electronically signed by the appointment provider. Sign off status: Pending * Provider: Jaun Collier MD Date: 0 05/02/2025 Generated for Kristal lopez/Penny/Shoshanaitting on: 0 07/05/2025 07:48 AM EDT
--- OUTSIDE RECORDS SUMMARY | 2025-05-09 04:00 | XMS_ITS ---
Author Organization Avery Collier MD Address [address] [place], [place] [id number] Care Team Providers Care Population Health Coach Name Role Phone Avery Collier Primary Care Provider [phone] Allergies Allergen (clinical drug ingredient) Drug/Non Drug Allergy documented on EMR Reaction Allergy Type Onset Date Status Medicinal product containing thiazide and acting as diuretic agent (product) Thiazide-Type Diuretics Unknown Drug Allergy Active sulfamethoxazole / trimethoprim bactrim (uncoded) rash Allergy Active Results Component Value Reference Range Notes Occult Blood, Stool, Guaiac Reviewed date:05/09/2025 12:03:57 PM Interpretation:Negative Performing Lab: Notes/Report: Negative Occult Blood, Stool, Guaiac Neg TSH reflex Free T4 Reviewed date:05/09/2025 02:46:27 PM Interpretation: Performing Lab:[facility], [address] [place] [phone] Notes/Report: TSH reflex Free T4 1.97 0.32-4.0 uIU/mL REASON FOR VISIT ANNUAL EXAM Medications Medication [...] Active hydroCHLOROthiazide 25 MG 1 tablet in e morning Orally Once a day for 30 day(s) 05/05/2023 Not-Taking Atorvastatin Calcium 80 MG TAKE 1 TABLET BY MOUTH EVERY DAY Active Nystatin 628251 UNIT/GM 1 application to affected area Externally Twice a day for 14 days 01/19/2018 Not-Taking Calcium 600/Vitamin D3 600-800 MG-UNIT 1 tablet with a meal Orally twice a day Active Nystatin 623273 UNIT/GM 1 application Externally Twice a day [...] Location Date Provider Diagnosis Avery Collier MD [address] [place] [address] Drive [address] [place], [place] [phone] 05/09/2025 Avery Collier Annual physical exam Z00.00 ; Pure hypercholesterolemia E78.00 ; Current smoker F17.200 ; Edema extremities R60.0 ; Yeast infection B37.9 ; Colon cancer screening Z12.11 and Depression screening Z13.31 Assessments Encounter Date Diagnosis (ICD Code) Assessment Notes Treatment Notes Treatment Clinical Notes Section Notes 05/09/2025 Annual physical exam (ICD-10 - Z00.00) labs reviewed and discussed with patient 05/09/2025 Pure hypercholesterolemia (ICD-10 - E78.00) wants to diet and lose 40 and not take meds, will continue to monitor 05/09/2025 Current smoker (ICD- 10 - F17.200) not ready to quit 05/09/2025 Edema extremities (ICD-10 - R60.0) pending diagnostic labs 05/09/2025 Yeast infection (ICD -10 - B37.9) patient verbalized understanding of medicaion and directions for use 05/09/2025 Colon cancer screeni ng (ICD-10 - Z12.11) guaiac negative 05/09/2025 Depression screening (ICD-10 - Z13.31) negatve screen Plan Of Treatment Medication Medication Name Sig Start Date Stop Date Notes Nystatin 175818 UNIT/GM 1 application Ex ternally Twice a day for 30 days 05/09/2025 Treatment Notes Assessment Notes Annual physical exam labs reviewed and d iscussed with patient Pure hypercholesterolemia wants to diet and lose 40 and not take meds, will continue to monitor Current smoker not ready to quit Edema extremities pending diagnostic l abs Yeast infection patient verbalized u nderstanding of medicaion and directions for use Colon cancer screening guaiac negative Depression screening negatve screen Next Appt Details Follow Up: 6 Months, Reason: Provider Name:Avery bucio, 11/01/2025 08:00:00 AM, [address], [address], [place], [place], [phone], Provider Name:Avery Otto ier, 11/08/2025 10:00:00 AM, [address], [address], [place], [phone], Provider Name:Avery Otto ier, 04/15/2026 07:00:00 AM, [address], [address], [place], [phone], Provider Name:Avery Otto ier, 05/16/2026 08:30:00 AM, [address], [address], [place], [place], [phone], Progress Notes * Sandra FAUSTINDOB:1955 (69 yo F)Acc No.[id number]:05/09/2025 Progress Notes Patient: Sandra IVAN Provider: Jaun Collier MD :1955 A ge:69 Y S ex:Female Date:05/09/2025 Address:[address] [place] [address], [address] , [facility] Subjective: * Chief Complaints: * A NNUAL EXAM * HPI: D epression Screening: PHQ-9 L [...] d enies. H eadache?denies. * Medical History: * Surgical History: * Hospitalization/Major Diagno stic Procedure: * Family History: F ather: alive 88 [...] full-time. Pets: cats. Travel outside of the [place]: no. * Medications: T akingAtorvastatin Calcium 80 MG [...] eye Ophthalmic Four times a day Nystatin 074023 UNIT/GM Cream 1 application to affected area [...] Ophthalmic Four times a day Not-Taking/PRN Nystatin 876024 UNIT/GM Cream 1 application to affected area [...] Auto 0.000 0.0-0.012 - X10*3/uL L ab:Comprehensive [place]. Panel Fast (Order Date - 05/01/2025) (Collection [...] L ab:Vitamin D 25-OH Total (Order Date - 05/01/2025) (Collection Date & Time - 05/01/2025 06:38 AM) Value Reference Range Vitamin D 25-OH Total 68.1 >30 - ng/mL L ab:UA ClnCatch+Micro w/rflx Cult (Order Date - 05/01/2025) (Collection Date & Time - 05/01/2025 06:38 AM) Value Reference Range Color Urine Yellow - Appearance Urine Clear - PH 5.5 5.0-9.0 - Glucose Urine UA Negative Negative - mg/dL Urine Blood Trace A Negative - Specific [place] - Urine <= 1.005 1.005-1.025 - Urine [...] 5 . Y east infection - B37.9 6 . C olon cancer screening - Z12.11 7 . D epression screening - Z13.31 Plan: * Treatment: 2. P ure hypercholesterolemia Notes: wants to diet and lose 40 and not take meds, will continue to monitor 3. C urrent smoker Notes: not ready to quit 4. E merari extremities L AB: TSH reflex Free T4 (Collection Date & Time - 05/09/2025 08:00 AM) Notes: pending diagnostic labs 5. Y east infection Start Nystatin Cream, 156824 UNIT/GM, 1 application, Externally, Twice a day, 30 days, 60, Refills 5. Notes: patient verbalized understanding of medicaion and directions for use 6. C olon cancer screening L AB: Occult Blood, Stool, Guaiac (Collection Date & Time - 05/09/2025) N egative Value Reference Range O ccult Blood, Stool, Guaiac Neg Notes: guaiac negative??7.?Depression screening? Notes: negatve screen?? * Procedure Codes: 3 6415 VENIPUNCT, ROUTINE*57347 TEST FOR BLOOD, FECES * Follow Up: 6 Months * * Sign off status: Completed true * Provider: Jaun Collier MD Date: 0 05/09/2025 Generated for Kristal lopez/Penny/Vasile on: 0 07/05/2025 07:47 AM EDT History and Physical Notes * [...]
--- OUTSIDE RECORDS SUMMARY | 2025-05-10 12:09 | XMS_ITS ---
Author Organization Avery Collier MD Address [address] [place] [id number] Care Team Providers Care Access Registrar Name Role Phone Avery Collier Primary Care Provider [phone] REASON FOR VISIT Test being held ? Encounters Encounter Location Date Provider Diagnosis Avery Collier MD [address] [place] [address] [address] [place] [id number] 05/10/2025 Avery Collier Plan Of Treatment Next Appt Details Provider Name:Avery bucio, 11/01/2025 08:00:00 AM, [address] [place] [address], Suite [facility], [place], [phone], Provider Name:Avery bucio, 11/08/2025 10:00:00 AM, [address] [place] [address], Suite [facility], [place], [place], [phone], Provider Name:Avery bucio, 04/15/2026 07:00:00 AM, [address], [address], [place], [place], [phone], Provider Name:vAery Otto ier, 05/16/2026 08:30:00 AM, [address], [address], [place], [place], [id number], Progress Notes * Sandra FAUSTINDOB:1955 (69 yo F)Acc No.[id number]:05/10/2025 Patient: Sara CARDENAS Sandra Appiah :1955 A ge:69 Y S ex:Female Address:[address] [place] [address] , [address] , [place] [address] * true * Date: Generated for Kristal lopez/Penny/eTbassamsmitting on: 0 07/05/2025 07:47 AM EDT
--- NOTE | ~2025-07-05 | MM_ITS ---
EXAMINATION: MM SCREENING DIGITAL BREAST TOMOSYNTHESIS, BILATERAL CLINICAL INFORMATION: Screening. Asymptomatic. COMPARISON: Mammography: Comparison is made with available priors TECHNIQUE: Digital breast mammography with tomosynthesis is performed in both the craniocaudal and mediolateral oblique views along with computer-aided detection (CAD). FINDINGS: The breasts are heterogeneously dense, which may obscure small masses. There are no significant masses, abnormal calcifications, or other abnormalities. MM/MM tomosynthesis screening BI IMPRESSION: No mammographic evidence of malignancy. ASSESSMENT: BI-RADS Category 1: Negative RECOMMENDATION: Routine annual mammography screening. 1 year F/U This examination should not preclude the clinical evaluation of a suspicious palpable abnormality. This patient's information was entered into a reminder system with a target due date for their next mammogram. Electronically signed by: Catarina Palacio DO 07/08/2025 05:39 PM EDT
--- OUTSIDE RECORDS SUMMARY | 2025-07-05 07:49 | XMS_ITS | Patient Health Record ---
Author Organization [facility] Address [address] [place] [address] Care Team Providers Care Nursing Education Specialist Name Role Phone Avery Collier MD Primary Care Provider Calderon Hu [phone] Allergies Allergen (clinical drug ingredient) Drug/Non Drug [...] Problem Status W/U Status Risk Notes Problem [id number] Encounter for screening for malignant neoplasm of colon (Z12.11) Active confirmed Problem 370707514 History of adenomatous polyp of colon (Z86.010) Active confirmed Problem Screening for malignant neoplasm of rectum (617258468) Encounter for screening for malignant neoplasm of rectum (Z12.12) Active confirmed Problem 71324907 Preprocedural examination (Z01.818) Active confirmed Problem 144952438 Hx of adenomatou s colonic polyps (Z86.010) Active confirmed Problem Diverticulosis of colon (152858501) Diverticulosis of colon (K57.30) Active confirmed Plan Of Treatment Future Test Test Name Order Date COLONOSCOPY 03/24/2016 COLONOSCOPY 09/22/2021 Insurance Providers Payer Name Payer Address Payer Phone Subscriber Number Group Number Insured Name Patient Relationship to Insured Coverage Start Date Coverage End Date [facility] [address] [place] [address] [phone] [id number] SIVA HUFFMAN Self - patient is the insured Medical (General) History Medical History History ICD Code Screening colonoscopy 02-29-2008-2 small tubular adenomas removed Denies [place],DM,CVA,Lung disease,renal dise ase Hyperlipidemia Colonoscopy in 03/2013--great er than 1 cm flat tubular adenoma removed from the transverse colon High blood pressure Osteoporosis Negative colonoscopy in 06/2016 Surgical History Surgery Date(Month/Year) Surgery of the right breast for benign d isease
--- OUTSIDE RECORDS SUMMARY | 2025-07-05 07:49 | XMS_ITS | Patient Health Record ---
Author Organization Avery Collier MD Address [address] [place], [place] [id number] Care Team Providers Care Ip Litigation Paralegal Name Role Phone Avery Collier Primary Care Provider [phone] Allergies Allergen (clinical drug ingredient) Drug/Non Drug [...] T4 Reviewed date:05/09/2025 02:46:27 PM Interpretation: Performing Lab:[facility], [address] [place] [phone] Notes/Report: TSH reflex Free T4 1.97 0.32-4.0 uIU/mL US pelvic and transvaginal Reviewed date:08/23/2024 08:35:25 AM Interpretation: Performing Lab: Notes/Report: [address] [address] Ultrasound Report Signed Patient: Sandra Faustin MR#: [id number] : 1955 Acct:[id number] Age/Sex: 68 / F ADM Date: 07/12/24 Loc: HO.US Attending Dr: Rory Mosley MD Ordering Physician: Rory Mosley MD Date of Service: 07/12/24 Procedure(s): US pelvic and transvaginal Accession Number(s): [id number] cc: Avery Collier MD; Rory Mosley MD [...] 08/23/2024 08:01 AM [facility] Dictated By: Lulú Sheehan MD Signed By: <Electronically signed by Lulú Sheehan MD in OV> 08/23/24 0801 DD/ 1047 TD/TT: 07/12/24 1057 Cartoon Artist: [address] [address] Ultrasound Report Signed Patient: Sandra Faustin MR#: [id number] : 1955 Acct:[id number] Age/Sex: 68 / F ADM Date: 07/12/24 Loc: HO.US Attending Dr: Rory Mosley MD Ordering Physician: Rory Mosley MD Date of Service: 07/12/24 Procedure(s): US pel alonso and transvaginal Accession Number(s): [id number] cc: Avery Collier MD; Rory Mosley MD EXAMINATION:US PELVI S TRANSABDOMINAL AND TRANSVAGINAL CLINICAL INFORMATION : R10.2 - Pelvic and perineal pain COMPARISON: No priors available. LMP: Postmenopausal FINDINGS: UTERUS: The uterus i s anteverted. Size: 7.2 x 2.4 x 3. 1 cm. Uterine mass: Intramural uterine mass likely fibroid 1 x 0.9 x 0.8 cm. Cervix: Grossly unremarkable. Endometrium: No ultrasound evidence of endometrial lesion. endometrial thickness measures 0 .3 cm ADNEXA: Normal Right ovary: Normal in [...] atrophic or obscured by bowel gas. Electronically jackie d by: Lulú Sheehan MD 08/23/2024 08:01 AM [facility] Dictated By: Lulú Sheehan MD Signed By: <Electronically signed by Lulú Sheehan MD in OV> 08/23/24 0801 DD/ 1047 TD/TT: 07/12/24 1057 Cartoon Artist: JOSELITO MM tomosynthesis added views L Reviewed date:08/02/2024 05:23:09 PM Interpretation: Performing Lab: Notes/Report: [facility] [address] [place] [address] Mammography Report Signed Patient: Sandra Faustin MR#: [id number] : 1955 Acct:[id number] Age/Sex: 68 / F ADM Date: 08/02/24 Loc: HO.MAMMO Attending Dr: Avery Collier MD Ordering Physician: Avery Collier MD Results: 2Be nign Findings Date of Service: 08/02/24 Follow Up: 1 Year From [facility] ina Mammogram Procedure(s): MM tomosynthesis added views L Accession Number(s): [id number] cc: Avery Collier MD EXAMINATION: MM DIAGNOSTIC [...] 08/02/24 1404 DD/ 1330 TD/TT: 08/02/24 1340 Cartoon Artist: [facility] [address] [place], [place] [address] Mammography Report Signed Patient: Sandra Faustin MR#: [id number] : 1955 Acct:[id number] Age/Sex: 68 / F ADM Date: 08/02/24 Loc: HO.MAMMO Attending Dr: Avery Collier MD Ordering Physician: Avery Collier MD Results: 2Be nign Findings Date of Service: 08/02/24 Follow Up: 1 Year From Orig inal Mammogram Procedure(s): MM tomosynthesis added views L Accession Number(s): [id number] cc: Avery Collier MD EXAMINATION: MM DIAGNOSTIC DIGITA L BREAST TOMOSYNTHESIS, LEFT CLINICAL INFORMATION: Diagnostic; evaluate one view asymmetry overlying the pectoralis muscle seen on MLO view onl y, possibly a lymph node. COMPARISON: Mammography: Screeni ng mammography 06/27/2024. Exams dating back to 2012. TECHNIQUE: Digital breast tomosynthesis is performed in the following views: 3-D full field digital l eft mediolateral view x2, 3-D full field left laterally exaggerate d CC view, and 3-D left spot compression [...] a benign lymph node. There are no finding s suspicious for malignancy. MM/MM tomosynthesis added views L IMPRESSION: -There are no findin gs suspicious for malignancy left breast. -Asymmetry in questi on in the posterior left MLO view overlying the pectoralis muscle is consistent with a benign small lymph node. No further follow-up recommended. -Recommend the patie nt return to routine annual screening mammography. ASSESSMENT: BI-RADS BI-RADS 2 - Benign Findings RECOMMENDATION: 1 year F/U Results were provide d to the patient at time of visit by the technologist. This patient's information was entered into a reminder system with a target due date for their next mammogram. Electronically jackie d by: Ashish Munoz MD 08/02/2024 02:04 PM EDT Dictated By: Ashish Munoz MD Signed By: <Electronically signed by Ashish Munoz MD in OV> 08/02/24 1404 DD/ 1330 TD/TT: 08/02/24 1340 Cartoon Artist: CT lung screening Reviewed date:09/28/2024 04:40:06 PM Interpretation: Performing Lab: Notes/Report: [address] [address] [address] Scan Report Signed Patient: Sandra Faustin MR#: [id number] : 1955 Acct:[id number] Age/Sex: 68 / F ADM Date: 08/14/24 Loc: HO.CT Attending Dr: Uyen Leslie PA-C Ordering Physician: Uyen Leslie PA-C Date of Service: 08/14/24 Procedure(s): CT lung screening Accession Number(s): [id number] cc: Avery Collier MD; Uyen Leslie PA-C [...] for CT CHEST LOW DOSE CANCER SCREENING ([id number]) can be placed. Electronically signed by: Roberto Beasley MD 09/27/2024 10:02 PM [facility] Dictated By: Roberto Beasley MD Signed By: <Electronically signed by Roberto Beasley MD in OV> 09/27/242201 DD/ 0 TD/TT: 08/14/24 0930 Cartoon Artist: [place] [address] CT Scan Report Signed Patient: Sandra Faustin MR#: [id number] : 1955 Acct:[id number] Age/Sex: 68 / F ADM Date: 08/14/24 Loc: HO.CT Attending Dr: Uyen Leslie PA-C Ordering Physician: Uyen Leslie PA-C Date of Service: 08/14/24 Procedure(s): CT buster g screening Accession Number(s): [id number] cc: Avery Collier MD; Uyen Leslie PA-C EXAMINATION: CT LOW-DOSE SCREENIN G CHEST WITHOUT CONTRAST CLINICAL INFORMATION: Nicotine dependence, cigarettes, uncomplicated. The patient is a current smoker with a 25 pack-year history of smoking. COMPARISON: CT chest August 08, 2023. TECHNIQUE: Multidetector volumetric CT imaging of the chest is performed on a Siemens SOMATOM Definition scanner without contrast using low dose technique. Additiona l 2D coronal and sagittal reformatted images and axial 3D maximum intensity projection (MIP) images are generated on the CT workstation. This CT examination was performed using dose optimization techniques as appropriate, various ly including the following: *Automated exposure control *Adjustment [...] lower lobe. There is a 3 mm nodu le seen in the right lower lobe and as ago esophageal recess (5:206). Lingular scarring/atelectasis is present. There is no new, increasing sized or suspicious nodules seen. LUNGS: Lungs bilaterally symmetrically expanded. There is mild emphysema and bronch ial thickening without bronchiectasis.. No effusion or pneumothorax. Central airways patent. MEDIASTINUM: No mediastinal, hilar or axillary adenopathy or free fluid collection. CORONARY ARTERY CALCIFICATION: None visualized on this study. THYROID GLAND: Unremarkable to the extent seen. CARDIOVASCULAR STRUCTURES: Aortic and heart size normal. No pericardial effusion. CHEST WALL/AXILLA: Unremarkable. UPPER ABDOMEN: Inclu ded portions of the solid organs in the upper abdomen unremarkable on noncontrast imaging. OSSEOUS STRUCTURES: No suspicious focal findings. CT/CT lung screening IMPRESSION: No evidence of pulmonary malignancy. ASSESSMENT: 1. Lung-RADS Categor y 2: Benign appearance or behavior of nodules. N/A 2. Lung-RADS Categor y S: Negative. There are no clinically significant or potentially clinically significant findings not related to the lungs requiring urgent additional evaluation. RECOMMENDATION: Continued routine annual low-dose CT lung screening in 1 year is recommended. An orde r for CT CHEST LOW DOSE CANCER SCREENING ([id number]) can be placed. Electronically jackie d by: Roberto Beasley MD 09/27/2024 10:02 PM [facility] Dictated By: Roberto Beasley MD Signed By: <Electronically signed by Roberto Beasley MD in OV> 09/27/242201 DD/ 0 TD/TT: 08/14/249[address] Cartoon Artist: LESTER Liver Panel Reviewed date:02/08/2025 12:30:23 PM Interpretation: Performing Lab:[facility], [address] [place] [phone] Notes/Report: Bilirubin Total 0.3 0.0-1.0 mg/dL Bilirubin Direct 0.1 0.0-0.5 mg/dL Aspartate Amino Transferase 42 5-31 U/L Alanine Aminotransferase 47 0-31 U/L Total Protein 7.0 6.5-8.0 g/dL Albumin Level 4.2 3.5-5.0 g/dL Alkaline Phosphatase 96 39-117 U/L Lipid Panel with Reflex Reviewed date:02/08/2025 05:09:04 PM Interpretation: Performing Lab:[facility], [address] [place] [phone] Notes/Report: Triglycerides 216 <150 mg/dL Desirable Triglyceride: less than 150 mg/dL Borderline High Triglyceride 150-199 mg/dL High Triglyceride: 200-499 mg/dL Very High Triglyceride: greater than or equal to 5OO mg/dL Cholesterol 228 <200 mg/dL Desirable Cholesterol: less than 200 mg/dL Borderline High Cholesterol: 200-239 mg/dL High Cholesterol: greater than 239 mg/dL LDL Cholesterol Calculated 148 <100 mg/dL Desirable LDL: less than 100 mg/dL Near Optimal/Above Optimal LDL: 110-129 mg/dL Borderline High LDL: 130-159 mg/dL High LDL: 160-189 mg/dL Very High LDL: greater than or equal to 190 mg/dL HDL Cholesterol 37 >40 mg/dL Desirable HDL: greater than 40 mg/dL Note: This HDL assay may give artificially low results in patients with liver disease. US pelvic and transvaginal Reviewed date:04/18/2025 05:12:22 PM Interpretation: Performing Lab: Notes/Report: [facility] [place] [address] Ultrasound Report Signed Patient: Sandra Faustin MR#: [id number] : 1955 Acct:[id number] Age/Sex: 69 / F ADM Date: 04/17/25 Loc: DOMITILAX Attending Dr: Rory Mosley MD Ordering Physician: Rory Mosley MD Date of Service: 04/17/25 Procedure(s): US pelvic and transvaginal Accession Number(s): [id number] cc: Avery Collier MD; Rory Mosley MD CLINICAL HISTORY: D25.9 - Leiomyoma of uterus, unspecified US pelvis transabdominal and transvaginal Comparison: US/SR - US PELVIC AND TRANSVAGINAL - 07/12/24 10:46 EDT Findings: Transabdominal scanning performed for overall anatomy. Transvaginal scanning performed for additional detail. Anteverted uterus is 5.4 x 2.3 x 3.8 cm, corresponds to a volume of 24.7 mL. Two small fibroids are noted measuring up to 1.1 cm. Normal myometrium. Endometrium 2 mm thickness. Right ovary 1.3 x 1.1 x 1.1 cm. Left ovary 1.1 x 0.9 x 1.0 cm. Normal color Doppler of both ovaries. No free fluid. IMPRESSION: 1. 2 small fibroids are noted measuring up to 1.1 cm, otherwise unremarkable. This document has been electronically signed by: Dejah Stearns MD on 04/17/2025 22:22:11 Dictated By: Dejah Stearns MD Signed By: <Electronically signed by Dejah Stearns MD in OV> 04/17/252222 DD/ 21 TD/TT: 04/17/252221 Cartoon Artist: [facility] [address] [place] [address] [place] [address] Ultrasound Report Signed Patient: Sandra Faustin MR#: [id number] : 1955 Acct:[id number] Age/Sex: 69 / F ADM Date: 04/17/25 Loc: DOMITILAX Attending Dr: Rory Mosley MD Ordering Physician: Rory Mosley MD Date of Service: 04/17/25 Procedure(s): US pel alonso and transvaginal Accession Number(s): [id number] cc: Avery Collier MD; Rory Mosley MD CLINICAL HISTORY: D2 5.9 - Leiomyoma of uterus, unspecified US pelvis transabdominal and transvaginal Comparison: US/SR - US PELVIC AND TRANSVAGINAL - 07/12/24 10:46 EDT Findings: Transabdominal scann ing performed for overall anatomy. Transvaginal scanning performed f or additional detail. Anteverted uterus is 5.4 x 2.3 x 3.8 cm, corresponds to a volume of 24.7 mL. Two small fibroi ds are noted measuring up to 1.1 cm. Normal myometrium. Endometrium 2 mm thickness. Right ovary 1.3 x 1. 1 x 1.1 cm. Left ovary 1.1 x 0.9 x 1.0 cm. Normal color Doppler of both ovaries. No free fluid. IMPRESSION: 1. 2 small fibroids are noted measuring up to 1.1 cm, otherwise unremarkable. This document has be en electronically signed by: Dejah Stearns MD on 04/17/2025 22:22:11 Dictated By: Dejah Stearns MD Signed By: <Electronically signed by Dejah Stearns MD in OV> 04/17/252222 DD/ 21 TD/TT: 04/17/252221 Cartoon Artist: Complete Blood Count Auto Di ff Reviewed date:05/01/2025 08:15:14 PM Interpretation: Performing Lab:[facility], [address] [place] [phone] Notes/Report: White Blood Count 7.7 4.8-10.8 X10*3/uL Red Blood Count 4.29 4.20-5.50 X10*6/uL Hemoglobin 13.3 12.0-16.0 g/dl Hematocrit 43.1 37.0-47.0 % Mean Corpuscular Volume 100.5 80.0-98.0 fL Mean Corpuscular Hemoglobin 31.0 27.0-33.0 pg Mean Corpuscular HGB Conc 30.9 31.0-35.0 g/dl Red Cell Distribution Width 13.5 11.0-16.0 % Platelet Count 245 160-400 X10*3/uL Mean Platelet Volume 12.0 9.4-12.3 fL Neutrophils Percent Auto 50.0 45-73 % Imm Gran Pct Auto 0.4 0.0-0.4 % Lymphocytes Percent Auto 40.7 20-40 % Monocytes Percent Auto 6.5 2-11 % Eosinophils Percent Auto 1.7 0-4 % Basophils Percent Auto 0.7 0-2 % NRBC Pct Auto 0.0 0.0-0.2 /100WBC Neutrophils Absolute Auto 3.8 2.0-8.3 x10*3/uL Imm Gran Abs Auto 0.03 0.00-0.03 X10*3/uL Lymphocytes Absolute Auto 3.1 1.2-4.9 X10*3/uL Monocytes Absolute Auto 0.5 0.1-1.2 X10*3/uL Eosinophils Absolute Auto 0.1 0.0-0.4 X10*3/uL Basophils Absolute Auto 0.1 0.0-0.2 X10*3/uL NRBC Abs Auto 0.000 0.0-0.012 X10*3/uL Comprehensive [place]. Panel Fa st Reviewed date:05/01/2025 08:07:40 PM Interpretation: Performing Lab:[facility], [address] [place] [phone] Notes/Report: Sodium 142 135-145 mmol/L Potassium 4.8 3.3-5.1 mmol/L Chloride 113 96-108 mmol/L Carbon Dioxide 23 22-29 mmol/L Anion Gap 11 12-20 Blood Urea Nitrogen 10 9-16 mg/dL Creatinine 0.89 0.5-1.4 mg/dL Estimated Glomerular Filt Rate > 60 Chronic Kidney Disease: Estimated GFR < 60 mL/min/1.73m2 Severe Kidney Disease: Estimated GFR < 15 mL/min/1.73m2 Glucose Fasting 107 60-99 mg/dL A fasting glucose from 100-125 mg/dl is considered impaired (pre-diabetes). Calcium 8.9 8.4-10.2 mg/dL Bilirubin Total 0.6 0.0-1.0 mg/dL Aspartate Amino Transferase 31 5-31 U/L Alanine Aminotransferase 35 0-31 U/L Total Protein 7.0 6.5-8.0 g/dL Albumin Level 4.2 3.5-5.0 g/dL Alkaline Phosphatase 103 39-117 U/L Lipid Panel Reviewed date:05/01/2025 08:11:51 PM Interpretation: Performing Lab:[facility], [address] [place] [phone] Notes/Report: Triglycerides 238 <150 mg/dL Desirable Triglyceride: less than 150 mg/dL Borderline High Triglyceride 150-199 mg/dL High Triglyceride: 200-499 mg/dL Very High Triglyceride: greater than or equal to 5OO mg/dL Cholesterol 239 <200 mg/dL Desirable Cholesterol: less than 200 mg/dL Borderline High Cholesterol: 200-239 mg/dL High Cholesterol: greater than 239 mg/dL LDL Cholesterol Calculated 158 <100 mg/dL Desirable LDL: less than 100 mg/dL Near Optimal/Above Optimal LDL: 110-129 mg/dL Borderline High LDL: 130-159 mg/dL High LDL: 160-189 mg/dL Very High LDL: greater than or equal to 190 mg/dL HDL Cholesterol 34 >40 mg/dL Desirable HDL: greater than 40 mg/dL Note: This HDL assay may give artificially low results in patients with liver disease. Vitamin D 25-OH Total Reviewed date:05/01/2025 08:14:45 PM Interpretation: Performing Lab:[facility], [address] [place] [phone] Notes/Report: Vitamin D 25-OH Total 68.1 >30 ng/mL Health Based Reference Values* < 20 ng/mL Deficient 20-30 ng/mL Insufficient > 30 ng/mL Sufficient *Luis Daniel RENEE. N Engl J Med. 2007;357:266-280 There is no well-established upper level of normal vitamin D levels. Some laboratories use 50 ng/mL as an upper limit of normal. However, toxicity is patient-dependent and may occur at any level. Careful correlation with the patient's presentation is necessary and, if there is concern for vitamin D toxicity, treatment should be considered irrespective of the serum level. Care must be taken in interpreting Vitamin [...] LC-MS/MS. UA ClnCatch+Micro w/rflx Cul t Reviewed date:05/01/2025 08:15:48 PM Interpretation: Performing Lab:[facility], [address] [place] [phone] Notes/Report: Urine, Clean Catch Color Urine Yellow Appearance Urine Clear PH 5.5 5.0-9.0 Glucose Urine UA Negative Negative mg/dL Urine Blood Trace Negative Specific [place] - Urine <= 1.005 1.005-1.025 Urine Protein Negative Neg-Trace mg/dL Urine Ketones Negative Negative mg/dL Nitrite Urine Negative Negative Leukocyte Esterase Urine Negative Negative RBC Urine 0-2 0-2 /HPF WBC Urine 0-5 0-5 /HPF Squamous Epithelial Cell Urine 0-2 0-2 /HPF Bacteria Urine None Seen None Seen Hyaline Casts Urine 0-2 0-2 /LPF Hold Gold Reviewed date:05/09/2025 02:46:18 PM Interpretation: Performing Lab:[facility], [address] [place] [phone] Notes/Report: Leela Feng See Note Specimen held untested for 24 hours; Call to request Chemistry testing. Reason For Referral No Information Medications Medication SIG (Take, Route, Frequency, Duration) Notes Start Date End Date Status Nystatin 198289 UNIT/GM 1 application Externally Twice a day for 30 days 05/09/2025 Active rOPINIRole HCl 1 MG TAKE 1 [...] TABLET BY MOUTH EVERY DAY Active Nystatin 401091 UNIT/GM 1 application to affected area Externally Twice a day for 14 days 01/19/2018 Not-Taking Calcium 600/Vitamin D3 600-800 MG-UNIT 1 tablet with a meal Orally twice a day Active Bumetanide 0.5 MG TAKE 1 TABLET BY MOUTH EVERY DAY FOR 30 DAYS Active Valsartan 80 MG TAKE 1 TABLET BY MOUTH ONCE A DAY for 90 Active Ventolin HFA * 108 (90 Base) MCG/ACT 2 puffs as needed Inhalation every 4 hrs for 30 day(s) 06/23/2018 Not-Taking Prolia 60 MG/ML injection Subcutaneous every 6 months Not-Taking Ocuflox 0.3 % 1 drop into affected eye Ophthalmic Four times a day for 10 days 10/16/2020 Not-Taking Immunizations Vaccine Route Administration Date Status Comme nts DECLINED, FLU Unknown 12/03/2013 Administered Shingles IM Intramuscular 01/07/2017 Administered Prevnar 13 IM Intramuscular 01/19/2018 Administered TDaP Unknown 03/22/2018 Administered Fluarix Quadrivalent IM Intramuscular 08/16/2018 Adminchrissy aguirre pt was given the vaccine at [facility] on [address] [place]. Shingrix IM Intramuscular 01/25/2019 Administered Shingrix IM [...] Unknown 06/23/2018 Refused Tetanus Unknown 03/22/2018 Pending Social History Tobacco Use: Social History Observation [...] ast year? No Points 0 Interpretation Negative Problems Problem Type SNOMED Code ICD Code Onset Dates Problem Status W/U Status Risk Notes Problem 13302189 Lymphocytosis (D72.820) Active confirmed Problem 57511041 Restless leg syn drome (G25.81) Active confirmed Problem 05159093 Vitamin D defici ency (E55.9) Active confirmed Problem Asthmatic bronchitis (645051803) Asthmatic bronchitis (J45.909) Active confirmed Problem Ascites (607779920) Other ascites (R18.8) Active confirmed Problem 61251375 Essential hypert ension (I10) Active confirmed Problem 584898097 Low HDL (under 4 0) (E78.6) Active confirmed Problem 75979154 Osteoporosis (M81.0) Active confirmed Problem 836942236 History of hemat uria (Z87.448) Active confirmed Problem 25831375 Current smoker (F17.200) Active confirmed Problem 214185391 Fatty liver (K76.0) Active confirmed Problem 904558466 Pure hypercholesterolemia (E78.00) Active confirmed Problem 3184481239731 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) Active confirmed Problem 737846714879343 Atherosclerosis of both carotid arteries (I65.23) Active confirmed Problem 061944190 Bruit of left ca rotid artery (R09.89) Active confirmed Problem 373719234 Bilateral caroti d artery disease, 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) Active confirmed Vital Signs Temperature 99 degrees Fahrenheit 04/08/2025 weight is 160 at home Bp not taken temp was 99 yesterday Blood pressure diastolic 64 mm Hg 05/09/2025 bradley ght is up 3 pounds since 04-08-25 Height 59.50 in 05/09/2025 weight is up 3 pounds since 04-08-25 Blood pressure systolic 158 mm Hg 05/09/2025 weig ht is up 3 pounds since 04-08-25 Weight 163 lbs 05/09/2025 weight is up 3 pounds since 04-08-25 BMI 32.37 kg/m2 05/09/2025 weight is up 3 pounds since 04-08-25 Encounters Encounter Location Date Provider Diagnosis Avery Collier MD [address] [place] [address] [id number] 07/10/2024 Avery Collier Encounter for immuni zation Z23 Avery Collier MD [address] [place] [address] [id number] 04/08/2025 Avery Collier Asthmatic bronchitis J45.909 Avery Collier MD [address] [place] [address] [id number] 11/15/2024 Avery Collier Pure hypercholestero lemia E78.00 ; Elevated LFTs R79.89 and Cigarette smoker F17.210 Avery Collier MD [address] [place] [address] [id number] 05/09/2025 Avery Collier Annual physical exam Z00.00 ; Pure hypercholesterolemia E78.00 ; Current smoker F17.200 ; Edema extremities R60.0 ; Yeast infection B37.9 ; Colon cancer screening Z12.11 and Depression screening Z13.31 Avery Collier MD [address] [place] [address] [id number] 05/10/2025 Avery Collier Assessments Encounter Date Diagnosis (ICD Code) Assessment Notes Treatment Notes Treatment Clinical Notes Section Notes 07/10/2024 Encounter for immunization (ICD-10 - Z23) 04/08/2025 Asthmatic bronchitis (ICD-10 - J45.909) patient verbalized understanding of medication and directions for use 11/15/2024 Pure hypercholesterolemia (ICD-10 - E78.00) at goal, will continue current regiment....pend ing labs 11/15/2024 Elevated LFTs (ICD-1 0 - R79.89) is related to her weight gain and statins. will repeat in 3 months 05/09/2025 Annual physical exam (ICD-10 - Z00.00) labs reviewed and discussed with patient 05/09/2025 Pure hypercholesterolemia (ICD-10 - E78.00) wants to diet and lose 40 and not take meds, will continue to monitor 11/15/2024 Cigarette smoker (ICD-10 - F17.210) is going for screening yearly, not willing to quit 05/09/2025 Current smoker (ICD- 10 - F17.200) not ready to quit 05/09/2025 Edema extremities (ICD-10 - R60.0) pending diagnostic labs 05/09/2025 Yeast infection (ICD -10 - B37.9) patient verbalized understanding of medicaion and directions for use 05/09/2025 Colon cancer screeni ng (ICD-10 - Z12.11) guaiac negative 05/09/2025 Depression screening (ICD-10 - Z13.31) negatve screen Plan Of Treatment Pending Test Test Name Order Date Electrocardiogram (EKG) 01/19/2018 Electrocardiogram (EKG) 08/05/2011 CT chest wo con 07/04/2023 XR DEXA axial skeleton 04/27/2022 US abdomen complete 05/05/2023 US carotid duplex BI 05/07/2024 US carotid duplex BI 06/21/2023 US carotid duplex BI 05/05/2023 US CAROTID BILATERAL DOPPLER 05/27/2023 Next Appt Details Provider Name:Avery bucio, 11/01/2025 08:00:00 AM, [address] [place] [address], [address], [phone], Provider Name:Avery bucio, 11/08/2025 10:00:00 AM, [address] [place] [address], [address] [place] [address], [phone], Provider Name:Avery bucio, 04/15/2026 07:00:00 AM, [address] [place] [address], [address], [phone], Provider Name:Avery bucio, 05/16/2026 08:30:00 AM, [address] [place] [address], [address], [phone], Insurance Providers Payer Name Payer Address Payer Phone Subscriber Number Group Number Insured Name Patient Relationship to Insured Coverage Start Date Coverage End Date [employer] [address] [place], [place] [id number] Sandra Faustin Self - patient is the insured Medical (General) History Medical History History ICD Code Refuses flu shot (08/29/12) hematuria work up in 2011 cysto and ultr asound colonoscopy 2007; 04/05/13 - repeat 3 yrs; Colonoscopy done 07/08/16 w/Dr. Pacheco - repeat 5 yrs:0302 Colonoscopy repeat 5yr pap smear - 11/09/2013 Cataract, unspecified cataract type, uns pecified laterality H26.9 Cataract, unspecified cataract type, uns pecified laterality
== END 2025-07-05 07:46 | disposition home or self-care (01) ==
LOC: HO.MAMMO 07:45
PROVIDERS: PCP Internal Medicine; Visit Provider Internal Medicine
DX: Z12.31 Encounter for screening mammogram for malignant neoplasm of breast (principal)
CPT/HCPCS: 77063; 77067

== ENCOUNTER → 2025-07-05 08:00 | Outpatient (BNV) | payer BC, SELFPAY | PROVIDERS: PCP Internal Medicine; Visit Provider Internal Medicine | DX: Z12.31 Encounter for screening mammogram for malignant neoplasm of breast (principal) | CPT/HCPCS: 77063; 77067 ==

== ENCOUNTER 2025-09-10 07:13 | Outpatient (REF) | payer BC, SELFPAY ==
--- NOTE | ~2025-09-10 | CT_ITS ---
EXAMINATION: CT LUNG SCREENING HISTORY: F17.210 - Nicotine dependence, cigarettes, uncomplicated TECHNIQUE: Low dose axial images were obtained from the sternal notch to upper abdomen without IV contrast per standard departmental protocol. Sagittal and coronal reformatted images were also obtained and reviewed. One or more of the following techniques was used for dose reduction: Automated exposure control, adjustment of the mA and/or kV according to patient size, use of iterative reconstruction technique. DLP: 41 mGy-cm COMPARISON: Comparison is made with the prior examination dated 08/14/2024. FINDINGS: Lung nodules: Again seen is a 3 mm nodule in the azygoesophageal recess of the right lower lobe (series 5, image 63). There is a 2 mm nodule in the left upper lobe (series 5, image 22). Again seen is a calcified granuloma in the left lower lobe (series 5, image 80). No suspicious pulmonary nodules are identified. Emphysema: none Coronary Calcification: none Aortic Arch Calcification: moderate Potentially Significant Incidentals : none Additional Chest Findings: There is no pleural or pericardial effusion. No mediastinal or axillary lymphadenopathy is identified. Visualized upper abdomen: The visualized portions of the liver, spleen, and adrenals have an unremarkable unenhanced appearance. CT/CT lung screening IMPRESSION: No suspicious pulmonary nodules are identified. LUNG-RADS ASSESSMENT: Lung-RADS 2: Benign MANAGEMENT: Continue annual screening with LDCT in 12 months Category S: N/A Electronically signed by: Calderon De Santiago MD 09/10/2025 09:50 AM [facility] [place]
== END 2025-09-10 07:14 | disposition home or self-care (01) ==
LOC: HO.CT 07:13
PROVIDERS: PCP Internal Medicine; Visit Provider Physician Assistant Medical
DX: F17.210 Nicotine dependence, cigarettes, uncomplicated (principal)
CPT/HCPCS: 71271

== ENCOUNTER → 2025-09-10 07:15 | Outpatient (BNV) | payer BC, SELFPAY | PROVIDERS: PCP Internal Medicine; Visit Provider Radiology Diagnostic Radiology | DX: Z12.2 Encounter for screening for malignant neoplasm of respiratory organs (principal); Z87.891 Personal history of nicotine dependence | CPT/HCPCS: 71271 ==

== ENCOUNTER 2025-09-18 09:43 | Outpatient (REF) | payer BC, SELFPAY ==
--- NOTE | ~2025-09-18 | US_ITS ---
CLINICAL HISTORY: I65.23 - Occlusion and stenosis of bilateral carotid arteries US bilateral carotid duplex Comparison: US/SR - US CAROTID DUPLEX BI - 06/06/24 10:41 EDT Findings: No significant plaque within the common carotid arteries. Mild plaque within the left carotid bulb. Mild plaque within the left internal carotid arteries. Waveforms are normal morphology. Peak systolic and end-diastolic velocities: Right CCA: 118.0 cm/s Right ICA: 82.0 cm/s Right ICA EDV: 35.0 cm/sec Right systolic ICA/CCA ratio: 0.69 Right ECA: Unremarkable Right vertebral artery flow antegrade. Left CCA: 99.0 cm/s Left ICA: 138.0 cm/s Left ICA EDV: 50.0 cm/sec Left systolic ICA/CCA ratio: 0.95 Left ECA: Unremarkable Left vertebral artery flow antegrade. Criteria for grading carotid stenosis Stenosis % ICA PSV cm/s ICA/CCA PSV ratio ICA EDV 0-50% <125 <2.0 <40 50-69% 125-230 2.0-4.0 40-100 70% + > 230 >4.0 >100 Impression: 1. Normal carotid velocities, no significant stenosis (0-49% stenosis) This document has been electronically signed by: Marcelo Steiner MD on 09/19/2025 11:45:05
== END 2025-09-18 09:44 | disposition home or self-care (01) ==
LOC: HO.US 09:43
PROVIDERS: PCP Internal Medicine; Visit Provider Surgery Vascular Surgery
DX: I65.23 Occlusion and stenosis of bilateral carotid arteries (principal)
CPT/HCPCS: 93880

== ENCOUNTER → 2025-09-18 09:45 | Outpatient (BNV) | payer BC, SELFPAY | PROVIDERS: PCP Internal Medicine; Visit Provider Radiology Diagnostic Radiology | DX: I65.23 Occlusion and stenosis of bilateral carotid arteries (principal) | CPT/HCPCS: 93880 ==